=== PATIENT | female | born 1995 | race Caucasian/White ===

== ENCOUNTER → 2021-04-22 09:38 | Day surgery (SDC) | payer OTHER, MEDICAID, SELFPAY ==
[2021-04-22 10:00] VITALS: BP 113/63; PULSE 105; RESP 18; TEMP 36.6; O2SAT 98
[2021-04-22 11:12] VITALS: BP 113/63; PULSE 105; RESP 18; TEMP 36.6
== END ==
PROVIDERS: PCP Family Medicine; Visit Provider Family Medicine
DX: O26.899 Other specified pregnancy related conditions, unspecified trimester (principal); Z3A.00 Weeks of gestation of pregnancy not specified; Z67.91 Unspecified blood type, Rh negative
CPT/HCPCS: 36415; 36430; 86850; 86900; 90384; 96372

== ENCOUNTER 2021-06-25 09:01 | Inpatient (IN) | payer OTHER, MEDICAID, SELFPAY ==
[2021-06-25] VITALS (19 sets, daily range): BP systolic 102–129; BP diastolic 58–86; PULSE 72–107; RESP 16–18; TEMP 36.3–37.1; O2SAT 99–100; BMI 38.2
[2021-06-25 09:25] LABS: Basophils % 0.3 %; Eosinophils # 0.1 10^3/uL (0.0-0.8); Eosinophils % 0.5 %; Hematocrit 33.7 % (37.0-47.0); Hemoglobin 10.4 g/dL (11.5-15.3); Lymphocytes # 1.6 10^3/uL (0.8-4.8); Lymphocytes % 11.9 %; Mean Corpuscular HGB Conc 30.9 g/dL (30.0-36.0); Mean Corpuscular Hemoglobin 24.3 pg (28.0-34.0); Mean Corpuscular Volume 78.7 fl (81-99); Monocytes # 0.6 10^3/uL (0.2-0.9); Monocytes % 4.5 %; Neutrophils # 10.75 10^3/uL (1.8-7.7); Neutrophils % 82.3 %; Nucleated Red Blood Cells % 0 %; Platelet Count 275 10^3/cmm (130-400); Red Blood Count 4.28 10^6/uL (4.1-5.3); Red Cell Distribution Width 16.4 % (12.1-15.1); White Blood Count 13.1 10^3/uL (4.0-10.0)
[2021-06-25] MEDS: terbutaline 1 mg/mL INJ 0.25 MG SUBCUT (09:56)
--- NOTE | 2021-06-25 10:29 | XRR_ITS ---
PROCEDURE INFORMATION: Exam: XR Abdomen Exam date and time: 06/25/2021 10:39 AM Age: 25 years old Clinical indication: Screening exam; Post surgical status; Stat section, no count; Prior surgery; Surgery date: Post-operative (0-2 days); Patient HX: Stat csection no count. PT has suction and boggy tip on her TECHNIQUE: Imaging protocol: XR of the abdomen. Views: Frontal supine view of the abdomen. 1 View. Total images: 1 COMPARISON: No relevant prior studies available. FINDINGS: Gastrointestinal tract: Bowel gas pattern is nondistended and nonobstructive. Intraperitoneal space: Superior aspect of the abdomen has been clipped from the radiograph. Bones/joints: Unremarkable. Soft tissues: No radio-dense foreign body. Other findings: Moderate stool burden. XR/XR abdomen 1V* [id number] IMPRESSION: 1. Normal bowel gas pattern 2. Moderate stool burden. 3. Superior aspect of the abdomen has been clipped from the radiograph. 4. No radio-dense foreign body.
[2021-06-25] MEDS: sodium chloride 0.9% (100 ml) 100 ML (10:36)
[2021-06-25] MEDS: ketorolac 30 mg/mL INJ IVP ×3 (12:21→18:42)
[2021-06-25] MEDS: HYDROcodone-acetaminophen 5-325 mg Tablet PO ×2 (12:21→19:09)
--- NOTE | 2021-06-25 12:58 | PM.OPHPUD ---
Labor & Delivery H&P Update Date of Procedure: June 25, 2021 Date H&P Performed: 06/19/21 Admission Diagnosis: SROM Planned procedure: expectant management
--- NOTE | 2021-06-25 12:59 | P.OP_ITS ---
Operative Report Date of procedure: June 25, 2021 Pre-op diagnosis: NRFHT Procedure done: Emergent (crash) Primary low transverse section Surgeon: Pamela Daly MD Estimated blood loss: 600 mL Urine output: No Gentile Brief History: heart tones were in the 40s despite repositioning, so the patient was rushed back to the OR for an emergent section. Procedure: The patient was emergently wheeled in her bed to the OR and transferred to the surgical table. Betadine was splashed on her stomach, she was draped and as soon as general anesthesia was administered a Pfannenstiel skin incision was made and carried through to the underlying rectus muscles. The rectus muscles were split in the midline and the peritoneum was entered digitally. The bladder blade was placed and uterine incision was made in a transverse fashion in the lower uterine segment. Amniotic rupture of membranes was performed with the scalpel in the same swipe. The infant was delivered atraumatically with bulb suction of the mouth and nares at delivery. Amazingly the had spontaneous cry and good tone. The cord was clamped and cut and the was handed to the waiting pediatric team. Cord blood was obtained. The placenta was delivered using fundal pressure. The uterus was exteriorized from the abdomen and a dry sponge was used to clear the uterus of clots and debris. The uterus was very atonic and there was heavy bleeding from the incision site. The uterine incision was repaired using 0 chromic in a running locked fashion while simultaneously anesthesia worked on ad ministering Pitocin IV. A second layer of the same suture was used in an imbricating manner. There was good hemostasis. With the Pitocin bolus and fundal massage the uterus became firm. It was then returned to the abdomen and irrigation was used to clear the gutters of clots and debris. The uterine incision was then reinspected for hemostasis. The peritoneum was then reapproximated using 4-0 Vicryl in a running fashion. The rectus muscles were then gently reapproximated using 4-0 Vicryl in an interrupted fashion. The subfascial tissue was inspected for hemostasis and then the fascia was reapproximated using 0 Vicryl in a running fashion. The subcutaneous tissue was irrigated and then it was reapproximated using 4-0 Vicryl in a running fashion. X-ray was performed since instrument counts were not performed. The skin was then reapproximated using 4-0 Vicryl in a running fashion on a Alli needle. Steri-Strips and a pressure bandage were applied. Patient was awakened in the OR and went to recovery in good condition.
--- NOTE | 2021-06-25 12:59 | PC.NURSE ---
PT REMAINS IN OR.
--- NOTE | 2021-06-25 16:07 | PC.NURSE ---
1600 SHE GOT UP TO CHAIR AND DID VERY WELL. TOLD HER THAT WE'D LET HER SIT UP FOR 1 HOUR AND THE WE'D TAKE A WALK. TOLD HER TO CALL ME IF SHE'S NEEDS ME.
[2021-06-25] MEDS: ferrous sulfate EC 325 mg Tablet PO (18:43)
[2021-06-25] MEDS: docusate sodium 100 mg Capsule PO (18:43)
[2021-06-25] MEDS: ceFAZolin 1,000 MG in sodium chloride 0.9% (plus) 50 ML 100 MG IV (19:09)
[2021-06-25] MEDS: dextrose 5%-lactated ringers 1,000 ML 125 ML IV (19:09)
[2021-06-26] VITALS: BP 130/75; PULSE 85; RESP 16; TEMP 36.7; O2SAT 98
[2021-06-26] MEDS: ketorolac 30 mg/mL INJ IVP ×2 (00:11→05:47)
[2021-06-26] MEDS: HYDROcodone-acetaminophen 5-325 mg Tablet PO ×4 (00:33→18:59)
[2021-06-26 00:42] LABS: Hemoglobin 8.3 g/dL (11.5-15.3); Mean Corpuscular HGB Conc 30.7 g/dL (30.0-36.0); Mean Corpuscular Hemoglobin 24.5 pg (28.0-34.0); Mean Corpuscular Volume 79.6 fl (81-99); Mean Platelet Volume 9.9 fL (7.4-10.4); Platelet Count 219 10^3/cmm (130-400); Red Blood Count 3.39 10^6/uL (4.1-5.3); Red Cell Distribution Width 16.5 % (12.1-15.1); White Blood Count 19.4 10^3/uL (4.0-10.0)
[2021-06-26 04:00] VITALS: BP 113/71; PULSE 104; TEMP 37.1
[2021-06-26 07:15] VITALS: BP 120/77; PULSE 101; RESP 16; TEMP 36.8
[2021-06-26] MEDS: prenatal vitamin Capsule 1 CAP PO (07:15)
[2021-06-26] MEDS: ferrous sulfate EC 325 mg Tablet PO ×2 (07:15→19:00)
[2021-06-26] MEDS: ceFAZolin 1,000 MG in sodium chloride 0.9% (plus) 50 ML 100 MG IV ×2 (07:15→15:09)
[2021-06-26] MEDS: docusate sodium 100 mg Capsule PO ×2 (10:02→18:59)
[2021-06-26 15:10] VITALS: BP 112/75; PULSE 94; RESP 18; TEMP 36.4
[2021-06-26] MEDS: lanolin oint 7 gm 1 APPLIC TOPICAL (16:05)
--- NOTE | 2021-06-26 17:46 | P.PN_ITS ---
Subjective Subjective: The patient is postop day #1 emergency section. She is doing well. She has been ambulating in the hallways, she is passing flatus, her pain is controlled with oral medications. Vitals/I&O/Wt Last Vital Signs Temp 98.7 F 06/26/21 04:00 Pulse 104 H 06/26/21 04:00 Resp 16 06/26/21 00:00 BP 113/71 06/26/21 04:00 Pulse Ox 98 06/26/21 00:00 06/26/21 06/26/21 06/26/21 06:59 14:59 22:59 Output Total 1000 / 2300 Balance -1000 / -1250 Weight last 48 hrs Weight 94.801 kg Weight 94.801 kg Physical Exam Narrative: Up walking the halls. Alert and oriented, heart regular rate and rhythm, lungs clear to auscultation bilaterally, abdomen with appropriate postoperative tenderness, incision is clean dry and intact with Steri-Strips in place, there is trace pedal edema but no calf tenderness. Urinary Catheter Management: Gentile: Cath Placed During This Visit: yes Reason for Continuing Indwelling Catheter: Acute Urinary Retention or Obstruction Urinary Catheter Date of Insertion: 06/25/21 Urinary Catheter Time of Insertion: 11:00 Data : 06/26/21 00:05 A&P Assessment and plan (1) Status post emergency section: Postop day #1 doing well. 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
[2021-06-26 22:15] VITALS: BP 111/76; PULSE 91; TEMP 36.8; O2SAT 96
[2021-06-26] MEDS: ibuprofen 800 mg tablet PO (22:16)
[2021-06-27] MEDS: HYDROcodone-acetaminophen 5-325 mg Tablet PO ×3 (03:48→14:32)
[2021-06-27 05:00] VITALS: BP 103/61; PULSE 99; RESP 14; O2SAT 96
[2021-06-27] MEDS: docusate sodium 100 mg Capsule PO (09:09)
[2021-06-27] MEDS: ibuprofen 800 mg tablet PO ×2 (09:09→14:32)
[2021-06-27] MEDS: ferrous sulfate EC 325 mg Tablet PO (09:09)
[2021-06-27] MEDS: prenatal vitamin Capsule 1 CAP PO (09:10)
[2021-06-27 10:34] VITALS: BP 129/79; PULSE 90; RESP 18; TEMP 37.2; O2SAT 97
[2021-06-27 16:32] VITALS: BP 127/71; PULSE 86; RESP 16; TEMP 36.7; O2SAT 99
--- NOTE | 2021-06-27 18:00 | PM.DCS ---
Discharge Providers Date of Admission: 06/25/21 09:01 Date of Discharge: June 27, 2021 Attending Provider at Admission: Pamela Daly MD Attending Provider at Discharge: Pamela Daly MD Primary Care Provider: Pamela Daly MD Diagnoses at Discharge Discharge Diagnosis (1) Status post emergency section: Status: Acute Reason for Visit Reason for Visit: loss of fluid Hospital Course Hospital Course This is a 25-year-old G2 now P2 who was admitted at 38 weeks 2 days gestation with spontaneous rupture of membranes. Due to severe bradycardia she underwent a very emergent primary low transverse section. She did well after delivery. She was ambulating, tolerating a regular diet, had good pain control and had average vaginal bleeding on the day of discharge. Physical Exam Narrative: Alert and oriented, heart regular rate and rhythm, lungs clear to auscultation bilaterally, abdomen is soft with appropriate postoperative tenderness, there is 1+ pedal edema, no calf tenderness. Urinary Catheter Management: Gentile: Cath Placed During This Visit: yes, but has since been removed by the nurse Reason for Continuing Indwelling Catheter: Acute Urinary Retention or Obstruction Urinary Catheter Date of Insertion: 06/25/21 Urinary Catheter Time of Insertion: 11:00 Date Urinary Catheter Removed: 06/26/21 Time Urinary Catheter Discontinued: 07:15 Discharge Data Studies Completed and Pending Completed Studies During Hospitalization Category Date Time Status XR abdomen 1V* [id number] Stat Exams 06/25/21 10:29 Completed Radiology Impressions Abdomen X-Ray 06/25/21 10:29 IMPRESSION: 1. Normal bowel gas pattern 2. Moderate stool burden. 3. Superior aspect of the abdomen has been clipped from the radiograph. 4. No radio-dense foreign body. Laboratory Results WBC 19.4 10^3/uL (4.0-10.0) H 06/26/21 00:05 RBC 3.39 10^6/uL (4.1-5.3) L 06/26/21 00:05 Hgb 8.3 g/dL (11.5-15.3) L 06/26/21 00:05 Hct 27.0 % (37.0-47.0) L 06/26/21 00:05 MCV 79.6 fl (81-99) L 06/26/21 00:05 MCH 24.5 pg (28.0-34.0) L 06/26/21 00:05 MCHC 30.7 g/dL (30.0-36.0) 06/26/21 00:05 RDW 16.5 % (12.1-15.1) H 06/26/21 00:05 Plt Count 219 10^3/cmm (130-400) 06/26/21 00:05 MPV 9.9 fL (7.4-10.4) 06/26/21 00:05 Neut % (Auto) 82.3 % 06/25/21 08:55 Lymph % (Auto) 11.9 % 06/25/21 08:55 Sargent % (Auto) 4.5 % 06/25/21 08:55 Eos % (Auto) 0.5 % 06/25/21 08:55 Baso % (Auto) 0.3 % 06/25/21 08:55 Neut # (Auto) 10.75 10^3/uL (1.8-7.7) H 06/25/21 08:55 Lymph # (Auto) 1.6 10^3/uL (0.8-4.8) 06/25/21 08:55 Sargent # (Auto) 0.6 10^3/uL (0.2-0.9) 06/25/21 08:55 Eos # (Auto) 0.1 10^3/uL (0.0-0.8) 06/25/21 08:55 Baso # (Auto) 0.0 10^3/uL (0.0-0.1) 06/25/21 08:55 Nucleated RBC % (auto) 0 % 06/25/21 08:55 Nucleated RBCs # 0.0 /100WBC 06/25/21 08:55 Blood Type A Negative 06/25/21 08:55 Rho(D) Type Negative 06/25/21 08:55 Antibody Screen Negative 06/25/21 08:55 Screen Negative (Negative) 06/26/21 00:05 Vitals Last Vital Signs Temp 98.1 F 06/27/21 16:32 Pulse 86 06/27/21 16:32 Resp 16 06/27/21 16:32 BP 127/71 06/27/21 16:32 Pulse Ox 99 06/27/21 16:32 Discharge Plan Discharge Condition: Stable Prescriptions: New ibuprofen 800 mg Tablet 800 mg PO TID PRN (Reason: Abdominal Discomfort) Qty: 40 0RF hydrocodone-acetaminophen 5-325 mg Tablet 1 - 2 tab PO Q4H PRN (Reason: Moderate To Severe Pain) Qty: 15 0RF docusate sodium 100 mg Capsule 100 mg PO BID Qty: 60 0RF Continued omeprazole 20 mg capsule,delayed release(DR/EC) 20 mg PO DAILY 0RF Discharge Orders: Discharge Order (Routine); Ordered 06/27/21 Ordered By: Pamela Daly Referrals: Pamela Daly MD [Primary Care Provider] - 07/01/21 2:15 pm Discharge Diet: Usual diet Discharge Activity: Limit activity as instructed Patient Instructions: Depression (DC), Expression, Collection and Storage of Breast Milk (DC), Bleeding (DC), Preeclampsia and Eclampsia After Delivery (GEN), OB - Stiven/Malika, OB Discharge Report, OB Food/Drug Interaction Guide, Opioid Safety, OB Home Care, OB Proud Parent Packet, Abnormal Bleeding Discharge Attestations Time Spent in Discharge Care*: less than 30 min Quality Metrics Clinical Quality Measures [ No reported AMI, CVA or VTE this stay] Coding Level of Care Code Acute Chg FW DC note Diagnoses Status post emergency section Z98.891
[2021-06-27] MEDS: measles,mumps,rubella pf Vial (w/diluent) 0.5 ML SUBCUT ×2 (18:30→18:39)
[2021-06-27 19:35] VITALS: BP 127/71; PULSE 86; RESP 16; TEMP 36.7; O2SAT 99
== END 2021-06-27 18:45 | disposition home or self-care (01) | DRG 788 ==
LOC: OPOB 09:05 → OBGYN 09:05
PROVIDERS: Admitting Provider Family Medicine; PCP Family Medicine; Visit Provider Family Medicine
PROC: 10D00Z1 Extraction of Products of Conception, Low, Open Approach (ICD-10-PCS; CPT 59514; principal; 2021-06-25 10:00)
DX: O76 Abnormality in fetal heart rate and rhythm complicating labor and delivery (principal); Z3A.38 38 weeks gestation of pregnancy; Z37.0 Single live birth
CPT/HCPCS: 36415; 51702; 59025; 59409; 74018; 83986; 85025; 85027; 85460; 86850; 86900; 90384; 90707; 96372; 96374; 99211; J0330; J0690; J1100; J1885; J2370; J2405; J2704; J3010; J3105; J7030

== ENCOUNTER 2024-08-07 02:45 | Outpatient (CLI) | payer OTHER, MEDICAID, SELFPAY ==
[2024-08-07 02:32] VITALS: BMI 32.0
[2024-08-07 03:04] VITALS: BP 108/57; PULSE 78
[2024-08-07] MEDS: hyDROXYzine 25 mg Capsule 50 MG PO (03:37)
[2024-08-07] MEDS: HYDROcodone-acetaminophen 5-325 mg Tablet 1 TAB PO (03:37)
[2024-08-07 03:40] VITALS: BP 106/54; PULSE 80
[2024-08-07 03:43] VITALS: BP 106/54; PULSE 80
== END 2024-08-07 03:50 | disposition home or self-care (01) ==
LOC: OPOB 02:46 → OBGYN 02:47
PROVIDERS: PCP Family Medicine; Visit Provider Family Medicine
DX: O26.899 Other specified pregnancy related conditions, unspecified trimester (principal); Z3A.00 Weeks of gestation of pregnancy not specified; M54.50 Low back pain, unspecified; R53.1 Weakness; R42 Dizziness and giddiness
CPT/HCPCS: 99211; J9999

== ENCOUNTER 2024-09-16 19:26 | Inpatient (IN) | payer SELFPAY ==
[2024-09-16 19:19] VITALS: BMI 33.3
[2024-09-16 19:48] LABS: Bilirubin Urine Negative (Negative); Blood Urine 1+ (Negative); Glucose Urine UA Negative (Normal); Ketones Urine Negative (Negative); Leukocyte Esterase Urine 2+ (Negative); Nitrate Urine Negative (Negative); Protein Urine Negative (Negative); Specific Gravity, Urine 1.017 (1.005-1.030); Urine Appearance Cloudy (CLEAR); Urine Color Yellow (Yellow); pH Urine 5.5 (5-7)
[2024-09-16 19:49] VITALS: BP 124/76; PULSE 96
[2024-09-16 19:53] LABS: Bacteria Urine 4+ /hpf; Hyaline Casts Urine 7.42 /lpf; WBC Urine >100 /hpf (0-5)
[2024-09-16 20:04] VITALS: BP 108/65; PULSE 92
[2024-09-16 20:13] LABS: Add Urine Culture? Yes
[2024-09-16 20:49] VITALS: RESP 16
[2024-09-16] MEDS: oxyCODONE 5 mg IR Tab/Cap PO (20:49)
[2024-09-16] MEDS: cefTRIAXone 1,000 mg SDV 1000 MG IVP (20:50)
[2024-09-16] MEDS: lactated ringers 1,000 ML 999 ML IV (20:50)
[2024-09-16 20:59] LABS: Basophils % 0.2 %; Eosinophils % 0.4 %; Hematocrit 33.9 % (36-47); Lymphocytes # 1.4 10^3/uL (0.8-4.8); Lymphocytes % 13.6 %; Mean Corpuscular HGB Conc 33.6 g/dL (30-55); Mean Corpuscular Hemoglobin 28.9 pg (27-33); Mean Corpuscular Volume 85.8 fl (85-98); Monocytes # 0.9 10^3/uL (0.2-0.9); Neutrophils # 7.79 10^3/uL (1.8-7.7); Neutrophils % 74.4 %; Nucleated Red Blood Cells % 0 %; Platelet Count 150 10^3/cmm (157-399); Red Blood Count 3.95 10^6/uL (3.85-5.65); Red Cell Distribution Width 13.7 % (12.1-15.1); White Blood Count 10.46 10^3/uL (3.29-11.43)
[2024-09-16 21:16] LABS: Alanine Aminotransferase 18 U/L (0-33); Albumin Level 3.7 g/dL (3.5-5.2); Alkaline Phosphatase 109 U/L (35-105); Anion Gap 16.6 (5-19); Aspartate Amino Transferase 25 U/L (0-32); Blood Urea Nitrogen 17 mg/dL (6-20); Carbon Dioxide 25 mmol/L (22-29); Chloride 99 mmol/L (98-107); Creatinine Clr Calc Pharmacy 115.9625; Globulin 3.1 g/dL (1.3-4.6); Glomerular Filtration Rate 97.6 mL/min (90-130); Glucose 96 mg/dL (65-115); Osmolality Calculated 285 mOsm/kg (285-295); Potassium 3.6 mmol/L (3.5-5.1); Sodium 137 mmol/L (136-145); Total Bilirubin 0.4 mg/dL (0.15-1.2); Total Protein 6.8 g/dL (6.6-8.7)
[2024-09-16 21:29] LABS: Calcium 13.6 mg/dL (8.5-10.5)
[2024-09-16] MEDS: calcitonin,salmon 200 unit/mL SDV 2mL 300 UNIT SUBCUT (22:35)
[2024-09-16 23:03] LABS: Calcium 13.3 mg/dL (8.5-10.5)
[2024-09-17] VITALS (8 sets, daily range): BP systolic 106–139; BP diastolic 59–62; PULSE 92–93; RESP 16–20; TEMP 35.9; BMI 33.3
[2024-09-17] MEDS: oxyCODONE 5 mg IR Tab/Cap PO ×4 (02:45→23:01)
[2024-09-17] MEDS: cyclobenzaprine 10 mg Tablet 5 MG PO ×3 (02:45→18:52)
[2024-09-17 05:54] LABS: Alanine Aminotransferase 17 U/L (0-33); Albumin Level 3.3 g/dL (3.5-5.2); Alkaline Phosphatase 99 U/L (35-105); Aspartate Amino Transferase 24 U/L (0-32); Blood Urea Nitrogen 13 mg/dL (6-20); Carbon Dioxide 25 mmol/L (22-29); Chloride 100 mmol/L (98-107); Creatinine Clr Calc Pharmacy 162.3475; Globulin 2.9 g/dL (1.3-4.6); Glomerular Filtration Rate 143.9 mL/min (90-130); Glucose 108 mg/dL (65-115); Osmolality Calculated 287 mOsm/kg (285-295); Sodium 138 mmol/L (136-145); Total Bilirubin 0.3 mg/dL (0.15-1.2); Total Protein 6.2 g/dL (6.6-8.7)
--- NOTE | 2024-09-17 06:03 | MRR_ITS ---
PROCEDURE INFORMATION: Exam: MR Lumbar Spine Without Contrast Exam date and time: 09/17/2024 8:27 AM Age: 29 years old Clinical indication: Low back pain; Prior surgery; Surgery date: 6+ months; Surgery type: C section; Additional info: Hypercalcemia with low pth, severe back pain [id number], patient is 28 weeks TECHNIQUE: Imaging protocol: Magnetic resonance imaging of the lumbar spine without contrast. COMPARISON: US OB >= 14 weeks fetus [id number] 08/01/2024 9:06 AM FINDINGS: Bones/joints: There is mild wedge deformity of T12 without significant edema. Lower endplate Schmorl's nodes are noted at L2 and L5. Heterogeneous marrow signal most likely represents mixed red and white marrow. Minor spondylosis is noted at L5-S1 with small disc ridges but no significant impingement upon the tapering thecal sac and no significant neural foraminal narrowing. Spinal cord: Visualized cord, conus medullaris and cauda equina are unremarkable without compression. L1-L2: No significant disc bulge or herniation. No severe spinal canal stenosis. No significant neural foraminal narrowing. L2-L3: No significant disc bulge or herniation. No severe spinal canal stenosis. No significant neural foraminal narrowing. L3-L4: No significant disc bulge or herniation. No severe spinal canal stenosis. No significant neural foraminal narrowing. L4-L5: No significant disc bulge or herniation. No severe spinal canal stenosis. No significant neural foraminal narrowing. L5-S1: No significant disc bulge or herniation. No severe spinal canal stenosis. No significant neural foraminal narrowing. Soft tissues: There is edema noted within the paraspinal muscles from L3-L5, also representing muscle strain. There is relative fatty muscle wasting in the lower paraspinal musculature at the L5 level. Reproductive: Incidental note is made of a gravid uterus with intrauterine gestation in the vertex presentation incompletely assessed on this examination. Please correlate with obstetric ultrasound as indicated. MR/MR lumbar spine wo con* [id number] IMPRESSION: Mild edema within the posterior paraspinal musculature could represent strain. Minimal lumbosacral spondylosis but no significant canal or foraminal narrowing. Gravid uterus incidentally noted, incompletely imaged.
--- NOTE | 2024-09-17 08:40 | USR_ITS ---
PROCEDURE INFORMATION: Exam: US Retroperitoneal, Complete, Kidneys and Bladder Exam date and time: 09/17/2024 9:41 AM Age: 29 years old Clinical indication: Abdominal pain; Flank; Right; ; Additional info: Right flank pain, hematuria TECHNIQUE: Imaging protocol: Real-time ultrasound of the retroperitoneum with image documentation. Complete exam focused on the bilateral kidneys and urinary bladder. COMPARISON: US OB >= 14 weeks fetus [id number] 08/01/2024 9:06 AM FINDINGS: Right kidney: The right kidney is diminutive measuring 8.8 cm in length, somewhat echogenic without hydronephrosis. Left kidney: The left kidney measures 10.0 cm and is normal in overall contour general echotexture without hydronephrosis. Urinary bladder: Unremarkable. Gallbladder: Incidental note is made of shadowing calculi within a partially contracted gallbladder. US/US renal BI* [id number] IMPRESSION: Diminutive right renal measurement, somewhat echogenic, likely technical. Otherwise unremarkable renal ultrasound. Cholelithiasis incidentally noted.
--- NOTE | 2024-09-17 08:59 | P.HP_ITS ---
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 Patient also reports that she felt like she was getting a UTI which included burning with urination and increased urgency. The patient has been having increasing low back pain over the last month. The pain is not severe enough that she presented to the emergency department where she was given pain medications and muscle relaxers. Patient was seen by her primary care and ordered physical therapy you were done, however this has not improved her discomfort. The patient is having severe enough pain that she has difficulty ambulating and mobilizing. Patient has been taken Flexeril and it has not helped much. Patient states if she is at rest her pain is 6 out of 10 but when she moves it increases to 8 out of 10. Patient denies any injury. Present Details : 3 Para: 2 Review of Systems 2 General: Reports: 10 or more systems reviewed and unremarkable except in HPI and below Medications/Allergies Home Medications ?Medication ?Instructions ?Recorded ?Confirmed ?Last Taken ?Type acetaminophen 325 mg tablet 325 mg PO QID PRN Pain 07/2909/16/24 09/16/24 16:00 History doxylamine succinate 25 mg tablet 25 mg PO PRN PRN sle ep 08/07/24 09/16/24 08/06/24 History (Unisom (doxylamine)) famotidine 10 mg tablet 10 mg PO BID 08/07/2408/06/24 History cyclobenzaprine 5 mg tablet 5 mg PO TID 09/16/2409/1609/16/24 18:30 History Allergies Allergy/AdvReac Type Severity Reaction Status Date / Time valacyclovir Allergy Severe SWELLING Verified 09/16/24 19:38 Vitals/I&O/Wt Last Vital Signs Pulse 92 09/17/24 01:07 Resp 16 09/17/24 02:45 BP 139/62 09/17/24 01:07 Weight last 48 hrs Weight 82.554 kg Weight 82.554 kg Weight 82.554 kg Physical Exam 2 Const: GENERAL APPEARANCE: in distress Neck/C-Spine: GENERAL: Yes normal visual inspection, No lymphadenopathy and No JVD Chest: COMMONS NORMALS: normal inspection of the chest Resp: COMMON NORMALS: normal respiratory effort, No retractions and No use of accessory muscles Cardio: COMMON NORMALS: no JVD, regular rate and regular rhythm GI: COMMON NORMALS: Normal to inspection, nondistended, normoactive bowel sounds present Back/Pelvis: GENERAL BACK: Yes CVA tenderness CVA tenderness: right, Yes tenderness and Yes other (Fasciculations noted on the right lumbar area and right side of her abdomen) Extremity: COMMON NORMALS: normal to inspection and no clubbing, cyanosis or edema Neuro: COMMON NORMALS: patient oriented x3, moves all extremities, no focal motor deficits, no sensory deficits noted and deep tendon reflexes 2+ bilaterally Data 09/16/24 20:49 09/17/24 04:35 Results Labs OB ([facility]): 2 Hct, (36-47) 33.9 % L 09/16/24 Hgb, (11.27-16.99) 11.40 g/dL 09/16/24 Plt Count, (157-399) 150 10^3/cmm L 09/16/24 Micro Urine Specimen 09/16/24 A&P Assessment and plan (1) Hypercalcemia: Patient had significant elevated calcium at 13.6 on arrival. The patient was given 1 dose of calcitonin and this brought it down to 11 this morning. Patient has had only minimal improvement in her pain. The patient has been utilizing pain medication scheduled. MRI to be performed this morning. PTH was low as expected for hypercalcemia. Will check PTH related peptide. (2) Multigravida in second trimester: (3) 27 weeks gestation of : (4) Muscle spasm: Continue cyclobenzaprine (5) Low back pain: Pending MRI results PDMP PDMP Reviewed: Not Reviewed Attestations 2 Medical Necessity Statement*: Patient admitted for severe hypercalcemia and severe low back pain. Anticipate care to cross 2 midnights. Coding Level of Care Code Acute Code for Chg Fwd Diagnoses Hypercalcemia E83.52 Multigravida in second trimester Z34.82 27 weeks gestation of Z3A.27 Muscle spasm M62.838 Acute right-sided low back pain without sciatica M54.50 Chronicity: acute Back pain laterality: right Sciatica presence: without sciatica
[2024-09-17] MEDS: fentaNYL 50 mcg/mL INJ 2mL 25 MCG IVP (09:26)
[2024-09-17] MEDS: calcitonin,salmon 200 unit/mL SDV 2mL 320 UNIT SUBCUT ×2 (11:09→22:35)
[2024-09-17 17:35] LABS: Calcium 11.2 mg/dL (8.5-10.5)
--- NOTE | 2024-09-17 18:08 | USR_ITS ---
PROCEDURE INFORMATION: Exam: US Biophysical Profile Without Non-Stress Test Exam date and time: 09/17/2024 7:24 PM Age: 29 years old Clinical indication: Other: Placental location, cervical length, bpp, sam; TECHNIQUE: Imaging protocol: US biophysical profile without non-stress testing. COMPARISON: US OB >= 14 weeks fetus [id number] 08/01/2024 9:06 AM FINDINGS: heart rate: 161 bpm presentation and position: Vertex presentation. Amniotic fluid index: SAM is 13.54 cm. BIOPHYSICAL PROFILE: breathing (BPP): 2 out of 2. gross body movement (BPP): 2 out of 2. tone (BPP): 2 out of 2. Amniotic fluid (BPP): 2 out of 2. MATERNAL ANATOMY: Cervix: Cervical length measures 4.1 cm. US/US OB BPP wo NST [id number] IMPRESSION: 11/11 biophysical profile.
--- NOTE | 2024-09-17 18:08 | XRR_ITS ---
PROCEDURE INFORMATION: Exam: XR Chest Exam date and time: 09/17/2024 6:33 PM Age: 29 years old Clinical indication: Chest wall pain; Additional info: Back pain; Elevated calcium; Back spasms; PT is -proceed with cxr per Dr. Child TECHNIQUE: Imaging protocol: Radiologic exam of the chest. Views: 1 view. COMPARISON: CR XR abdomen 1V* [id number] 06/25/2021 10:39 AM FINDINGS: Lungs: Unremarkable. No consolidation. Pleural spaces: Unremarkable. No pleural effusion. No pneumothorax. Heart/Mediastinum: Unremarkable. No cardiomegaly. Bones/joints: Unremarkable. XR/XR chest 1V portable [id number] IMPRESSION: No acute findings.
[2024-09-17] MEDS: betamethasone susp 6 mg/mL 5 mL 12 MG IM (18:52)
[2024-09-17 18:53] LABS: 25 Hydroxy Vitamin D 24 ng/mL (30-100)
[2024-09-17] MEDS: sodium chloride 0.9% 1,000 ML 150 ML IV (18:53)
[2024-09-17] MEDS: lidocaine 1% 5 ML in potassium chloride premix 100 ML 26.25 ML IV (20:09)
[2024-09-17] MEDS: cefTRIAXone 1,000 mg SDV 1000 MG IVP (21:13)
[2024-09-18] MEDS: FUROsemide 10 mg/mL SDV 4mL 40 MG IVP ×3 (00:07→21:20)
--- NOTE | 2024-09-18 02:02 | PC.NURSE ---
Patient reports has helped her to the bathroom 3 times since 14. Reassurance provided that IV fluid and Lasix would increase trips to the bathroom. Encouraged patient to hit call light for additional assistance to and from bathroom.
[2024-09-18] MEDS: sodium chloride 0.9% 1,000 ML 150 ML IV ×3 (02:33→21:12)
[2024-09-18] MEDS: cyclobenzaprine 10 mg Tablet 5 MG PO ×3 (02:33→19:06)
[2024-09-18 04:48] LABS: Basophils % 0.2 %; Eosinophils % 0.1 %; Hematocrit 34.5 % (36-47); Lymphocytes # 1.2 10^3/uL (0.8-4.8); Lymphocytes % 10.3 %; Mean Corpuscular HGB Conc 33.6 g/dL (30-55); Mean Corpuscular Hemoglobin 28.9 pg (27-33); Mean Platelet Volume 9.8 fL (7.4-10.4); Monocytes # 0.4 10^3/uL (0.2-0.9); Monocytes % 3.7 %; Neutrophils # 9.81 10^3/uL (1.8-7.7); Neutrophils % 81.4 %; Nucleated Red Blood Cells % 0 %; Platelet Count 143 10^3/cmm (157-399); Red Blood Count 4.01 10^6/uL (3.85-5.65); Red Cell Distribution Width 13.5 % (12.1-15.1); White Blood Count 12.05 10^3/uL (3.29-11.43)
[2024-09-18 05:02] VITALS: BP 109/57; PULSE 82; RESP 16
[2024-09-18] MEDS: oxyCODONE 5 mg IR Tab/Cap PO ×3 (05:02→21:12)
[2024-09-18 05:10] LABS: Alanine Aminotransferase 20 U/L (0-33); Albumin Level 3.6 g/dL (3.5-5.2); Alkaline Phosphatase 116 U/L (35-105); Anion Gap 18.5 (5-19); Aspartate Amino Transferase 24 U/L (0-32); Blood Urea Nitrogen 13 mg/dL (6-20); Calcium 10.9 mg/dL (8.5-10.5); Carbon Dioxide 22 mmol/L (22-29); Chloride 99 mmol/L (98-107); Creatinine Clr Calc Pharmacy 162.3475; Glomerular Filtration Rate 143.9 mL/min (90-130); Glucose 102 mg/dL (65-115); Osmolality Calculated 282 mOsm/kg (285-295); Potassium 3.5 mmol/L (3.5-5.1); Sodium 136 mmol/L (136-145); Total Bilirubin 0.3 mg/dL (0.15-1.2); Total Protein 6.6 g/dL (6.6-8.7)
--- NOTE | 2024-09-18 09:10 | P.PN_ITS ---
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 No identifiable cause has been discovered at this time. Additional testing so far has not administrated any significant cause. Vital signs remained stable. Patient's pain has improved. Patient admits to not having a bowel movement in the last week. Labor: Amniotic Membrane Status: Intact Vitals/I&O/Wt Last Vital Signs Temp 96.6 F L 09/17/24 21:30 Pulse 82 09/18/24 05:02 Resp 16 09/18/24 05:02 BP 109/57 09/18/24 05:02 09/17/24 09/18/24 09/18/24 22:59 06:59 14:59 Intake Total 1000 / 1000 Balance 1000 / 1000 Weight last 48 hrs Weight 82.554 kg Weight 82.554 kg Weight 82.554 kg Physical Exam 2 Const: COMMON NORMALS: patient oriented x3 GENERAL APPEARANCE: in distress Neck/C-Spine: COMMON NORMALS: no JVD GENERAL: Yes normal visual inspection, No lymphadenopathy and No JVD Chest: COMMONS NORMALS: normal inspection of the chest Resp: COMMON NORMALS: normal respiratory effort, No retractions and No use of accessory muscles Cardio: COMMON NORMALS: no JVD, regular rate and regular rhythm RATE: r egular rate RHYTHM: regular rhythm GI: COMMON NORMALS: Normal to inspection, nondistended, normoactive bowel sounds present : BLADDER/KIDNEY EXAM: Yes CVA tenderness Back/Pelvis: GENERAL BACK: Yes CVA tenderness CVA tenderness: right, Yes tenderness and Yes other (Fasciculations noted on the right lumbar area and right side of her abdomen) Extremity: COMMON NORMALS: normal to inspection and no clubbing, cyanosis or edema Neuro: COMMON NORMALS: patient oriented x3, moves all extremities, no focal motor deficits, no sensory deficits noted and deep tendon reflexes 2+ bilaterally Data 09/18/24 04:35 09/18/24 04:35 A&P Assessment and plan (1) Hypercalcemia: Calcium has decreased to 10.9. Will do another dose of Lasix and continue IV fluids today. Continue calcitonin. Imaging has been unremarkable and has not determined a source of the hypercalcemia. PTH RP is pending (2) Multigravida in second trimester: No concerns with the at this time (3) 27 weeks gestation of : (4) Muscle spasm: Continue cyclobenzaprine (5) Low back pain: MRI did demonstrate significant edema in the musculature on the right side consistent with muscle strain. Patient also has possible small compression fracture of T12. Patient does admit that she has been lifting weights in the gym and recalled an incident of severe back pain when twisting quickly to help her children otherwise no trauma. Patient denies any known injury while lifting in the gym. (6) Cholelithiasis: Incidental cholelithiasis noted on ultrasound. PDMP PDMP Reviewed: Not Reviewed Attestations 2 Medical Necessity Statement*: Patient admitted for severe hypercalcemia. Coding Level of Care Code Acute Code for Chg Fwd Diagnoses Hypercalcemia E83.52 Multigravida in second trimester Z34.82 27 weeks gestation of Z3A.27 Muscle spasm M62.838 Acute right-sided low back pain without sciatica M54.50 Chronicity: acute Back pain laterality: right Sciatica presence: without sciatica Calculus of gallbladder without cholecystitis without obstruction K80.20 Cholelithiasis location: gallbladder Cholecystitis presence: without cholecystitis Biliary obstruction: without biliary obstruction
[2024-09-18] MEDS: potassium chloride ER 20 mEq Tablet 40 MEQ PO (09:21)
[2024-09-18] MEDS: polyethylene glycol 3350 Pkt 17 gm PO (09:53)
[2024-09-18] MEDS: calcitonin,salmon 200 unit/mL SDV 2mL 320 UNIT SUBCUT ×2 (10:47→23:13)
[2024-09-18 15:10] VITALS: RESP 18
[2024-09-18 17:44] VITALS: BP 105/67; PULSE 80; TEMP 35.7
[2024-09-18 17:59] VITALS: BP 104/63; PULSE 86
[2024-09-18 18:00] LABS: Calcium 11.2 mg/dL (8.5-10.5)
[2024-09-18 18:14] VITALS: BP 106/69; PULSE 83
[2024-09-18] MEDS: betamethasone susp 6 mg/mL 5 mL 12 MG IM (19:29)
[2024-09-18 21:12] VITALS: RESP 16
[2024-09-18] MEDS: cefTRIAXone 1,000 mg SDV 1000 MG IVP (21:12)
[2024-09-19 02:39] VITALS: RESP 16
[2024-09-19] MEDS: oxyCODONE 5 mg IR Tab/Cap PO ×2 (02:39→09:44)
[2024-09-19] MEDS: cyclobenzaprine 10 mg Tablet 5 MG PO (02:39)
[2024-09-19 05:24] VITALS: BP 110/64; PULSE 86
[2024-09-19] MEDS: sodium chloride 0.9% 1,000 ML 150 ML IV (05:35)
[2024-09-19 05:51] LABS: Hematocrit 33.8 % (36-47); Mean Corpuscular Volume 85.4 fl (85-98); Mean Platelet Volume 9.9 fL (7.4-10.4); Platelet Count 167 10^3/cmm (157-399); Red Blood Count 3.96 10^6/uL (3.85-5.65); Red Cell Distribution Width 13.5 % (12.1-15.1)
[2024-09-19 06:05] LABS: Alanine Aminotransferase 27 U/L (0-33); Albumin Level 3.5 g/dL (3.5-5.2); Alkaline Phosphatase 112 U/L (35-105); Anion Gap 19.3 (5-19); Aspartate Amino Transferase 28 U/L (0-32); Blood Urea Nitrogen 15 mg/dL (6-20); Calcium 10.8 mg/dL (8.5-10.5); Carbon Dioxide 22 mmol/L (22-29); Chloride 99 mmol/L (98-107); Creatinine Clr Calc Pharmacy 200.5988; Globulin 2.9 g/dL (1.3-4.6); Glomerular Filtration Rate 186.2 mL/min (90-130); Glucose 102 mg/dL (65-115); Osmolality Calculated 285 mOsm/kg (285-295); Potassium 3.3 mmol/L (3.5-5.1); Sodium 137 mmol/L (136-145); Total Bilirubin 0.3 mg/dL (0.15-1.2); Total Protein 6.4 g/dL (6.6-8.7)
[2024-09-19 06:18] LABS: Eosinophils 0 %; Monocytes Absolute 0.3 10^3/cmm (0.1-0.6); Slide Review Slide Review Perform; Total Cells Counted 100 (0-100)
[2024-09-19 06:19] LABS: Absolute Segmented Neutrophil 8.4 10/cmm (1.6-7.1); Band Neutrophils Absolute 0.9 10^3/cmm (0.0-1.2); Lymphocytes 18 %; Lymphocytes Absolute 2.7 10^3/cmm (1.2-3.4); Segmented Neutrophils 65 %
[2024-09-19 06:20] LABS: Absolute Neutrophil 9.3 10^3/cmm (1.4-6.5); Platelet Estimate Decreased (Normal)
--- NOTE | 2024-09-19 07:42 | PM.OBGYDC ---
Discharge Providers STAFF TRAINING AND DEVELOPMENT MANAGER Date of Admission: 09/16/24 19:26 Date of Discharge: 09/19/24 Attending Provider at Admission: Ayan Child MD Attending Provider at Discharge: Ayan Child MD Primary Care Provider: Pamela Daly MD Diagnoses at Discharge Discharge Diagnosis (1) Hypercalcemia: Details from hospital stay: Will continue to work this up with a 24-hour urine calcium that we will complete after discharge. PTH related protein is still pending. Status: Acute (2) Multigravida in second trimester: Status: Acute (3) 27 weeks gestation of : Status: Acute (4) Muscle spasm: Status: Acute (5) Low back pain: Details from hospital stay: Will continue with Flexeril and pain medications to help manage her pain. We will continue physical therapy. Will discuss with therapist the new findings from this visit. Status: Acute Qualifiers: Chronicity: acute Back pain laterality: right Sciatica presence: without sciatica Qualified Code(s): M54.50 - Low back pain, unspecified (6) Cholelithiasis: Status: Acute Qualifiers: Cholelithiasis location: gallbladder Cholecystitis presence: without cholecystitis Biliary obstruction: without biliary obstruction Qualified Code(s): K80.20 - Calculus of gallbladder without cholecystitis without obstruction Reason for Visit Reason for Visit: Back pain, Cramping Hospital Course Hospital Course This is a 29-year-old that presented at 27 weeks with severe mid to low back pain. Patient was noted to have fasciculations and labs were obtained. Labs initially showed a calcium level of 13.6. Renzo calcium level with PTH still showed moderately elevated calcium levels with an appropriate low PTH. Patient received started receiving calcitonin twice daily with a reduction in her calcium level and slow improvement of her symptoms. I was performed and it demonstrated a small compression fracture at T12 and evidence of muscle strain on the right. This explained in part of the reason why the patient was having significant pain. Patient was monitored over the next several days while giving calcitonin and Lasix with only minimal continued improvement in calcium. However, the patient's symptoms have significantly improved. PTH related peptide is still pending. Patient was treated for UTI and initial culture showed mixed urogenital matheus. Physical Exam Const: COMMON NORMALS: patient oriented x3 GENERAL APPEARANCE: in distress Neck/C-Spine: COMMON NORMALS: no JVD GENERAL: Yes normal visual inspection, No lymphadenopathy and No JVD Chest: COMMONS NORMALS: normal inspection of the chest Resp: COMMON NORMALS: normal respiratory effort, No retractions and No use of accessory muscles Cardio: COMMON NORMALS: no JVD, regular rate and regular rhythm RATE: regular rate RHYTHM: regular rhythm GI: COMMON NORMALS: Normal to inspection, nondistended, normoactive bowel sounds present Back/Pelvis: GENERAL BACK: Yes tenderness and Yes other Extremity: COMMON NORMALS: normal to inspection and no clubbing, cyanosis or edema Neuro: COMMON NORMALS: patient oriented x3, moves all extremities, no focal motor deficits, no sensory deficits noted and deep tendon reflexes 2+ bilaterally Discharge Data Studies Completed and Pending Completed Studies During Hospitalization Category Date Time Status XR chest 1V portable [id number] Stat Exams 09/17/24 18:08 Completed MR lumbar spine wo con* [id number] Stat MRI 09/17/24 06:03 Completed US OB BPP wo NST [id number] Stat Ultrasound 09/17/24 18:08 Completed US renal BI* [id number] Urgent Ultrasound 09/17/24 08:40 Completed Pending at discharge Category Date Time Status PTH Related Peptide (Protein) Urgent Lab 09/17/24 04:35 Received Radiology Impressions Lumbar Spine MRI 09/17/24 06:03 IMPRESSION: Mild edema within the posterior paraspinal musculature could represent strain. Minimal lumbosacral spondylosis but no significant canal or foraminal narrowing. Gravid uterus incidentally noted, incompletely imaged. ADDENDUM: 09/17/24 0925 Add to the impression section: Age-indeterminate, probably nonacute mild wedge compression deformity of T12. Renal Ultrasound 09/17/24 08:40 IMPRESSION: Diminutive right renal measurement, somewhat echogenic, likely technical. Otherwise unremarkable renal ultrasound. Cholelithiasis incidentally noted. Chest X-Ray 09/17/24 18:08 IMPRESSION: No acute findings. Obstetrics US/Biophysical Profile 09/17/24 18:08 IMPRESSION: 8/8 biophysical profile. Laboratory Results WBC 12.90 10^3/uL (3.29-11.43) H 09/19/24 05:30 RBC 3.96 10^6/uL (3.85-5.65) 09/19/24 05:30 Hgb 11.50 g/dL (11.27-16.99) 09/19/24 05:30 Hct 33.8 % (36-47) L 09/19/24 05:30 MCV 85.4 fl (85-98) 09/19/24 05:30 MCH 29.0 pg (27-33) 09/19/24 05:30 MCHC 34.0 g/dL (30-55) 09/19/24 05:30 RDW 13.5 % (12.1-15.1) 09/19/24 05:30 Plt Count 167 10^3/cmm (157-399) 09/19/24 05:30 MPV 9.9 fL (7.4-10.4) 09/19/24 05:30 Neut % (Auto) 81.4 % 09/18/24 04:35 Lymph % (Auto) Not Reportable 09/19/24 05:30 [place] % (Auto) Not Reportable 09/19/24 05:30 Eos % (Auto) 0.1 % 09/18/24 04:35 Baso % (Auto) 0.2 % 09/18/24 04:35 Neut # (Auto) 9.81 10^3/uL (1.8-7.7) H 09/18/24 04:35 Lymph # (Auto) Not Reportable 09/19/24 05:30 [place] # (Auto) Not Reportable 09/19/24 05:30 Eos # (Auto) 0.0 10^3/uL (0.0-0.8) 09/18/24 04:35 Baso # (Auto) 0.0 10^3/uL (0.0-0.1) 09/18/24 04:35 Nucleated RBC % (auto) 0 % 09/18/24 04:35 Total Counted 100 (0-100) 09/19/24 05:30 Atypical Lymphs % 3.0 % (0-5) 09/19/24 05:30 Absolute Neutrophils 9.3 10^3/cmm (1.4-6.5) H 09/19/24 05:30 Segmented Neutrophils 65 % 09/19/24 05:30 Band Neutrophils 7.0 % 09/19/24 05:30 Absolute Lymphocytes 2.7 10^3/cmm (1.2-3.4) 09/19/24 05:30 Lymphocytes (Manual) 18 % 09/19/24 05:30 Monocytes (Manual) 2.0 % 09/19/24 05:30 Absolute Monocytes 0.3 10^3/cmm (0.1-0.6) 09/19/24 05:30 Eosinophils (Manual) 0 % 09/19/24 05:30 Absolute Eosinophils 0.0 10^3/cmm (0.0-0.7) 09/19/24 05:30 Basophils (Manual) 0.0 % 09/19/24 05:30 Absolute Basophils 0.0 10^3/cmm (0.0-0.2) 09/19/24 05:30 Metamyelocytes 2.0 % 09/19/24 05:30 Myelocytes 3.0 % 09/19/24 05:30 Nucleated RBCs # 0.0 /100WBC 09/18/24 04:35 Platelet Estimate Decreased (Normal) L 09/19/24 05:30 Sodium 137 mmol/L (136-145) 09/19/24 05:30 Potassium 3.3 mmol/L (3.5-5.1) L 09/19/24 05:30 Chloride 99 mmol/L (98-107) 09/19/24 05:30 Carbon Dioxide 22 mmol/L (22-29) 09/19/24 05:30 Anion Gap 19.3 (5-19) H 09/19/24 05:30 BUN 15 mg/dL (6-20) 09/19/24 05:30 Creatinine 0.4 mg/dL (0.5-0.9) L 09/19/24 05:30 GFR Calculation 186.2 mL/min (90-130) H 09/19/24 05:30 Glucose 102 mg/dL (65-115) 09/19/24 05:30 Calculated Osmolality 285 mOsm/kg (285-295) 09/19/24 05:30 Calcium 10.8 mg/dL (8.5-10.5) H 09/19/24 05:30 Total Bilirubin 0.3 mg/dL (0.15-1.2) 09/19/24 05:30 AST 28 U/L (0-32) 09/19/24 05:30 ALT 27 U/L (0-33) 09/19/24 05:30 Alkaline Phosphatase 112 U/L (35-105) H 09/19/24 05:30 Total Protein 6.4 g/dL (6.6-8.7) L 09/19/24 05:30 Albumin 3.5 g/dL (3.5-5.2) 09/19/24 05:30 Globulin 2.9 g/dL (1.3-4.6) 09/19/24 05:30 25-OH Vitamin D Total 24 ng/mL (30-100) L 09/17/24 17:00 PTH Intact 6.0 pg/mL (15-65) L 09/16/24 22:35 Calcium (PTH Intact) 13.3 mg/dL (8.5-10.5) H 09/16/24 22:35 Urine Color Yellow (Yellow) 09/16/24 19:35 Urine Appearance Cloudy (CLEAR) A 09/16/24 19:35 Urine pH 5.5 (5-7) 09/16/24 19:35 Ur Specific [place] 1.017 (1.005-1.030) 09/16/24 19:35 Urine Protein Negative (Negative) 09/16/24 19:35 Urine Glucose (UA) Negative (Normal) 09/16/24 19:35 Urine Ketones Negative (Negative) 09/16/24 19:35 Urine Blood 1+ (Negative) A 09/16/24 19: Urine Nitrate Negative (Negative) 09/16/24 19:35 Urine Bilirubin Negative (Negative) 09/16/24 19:35 Urine Urobilinogen 1.0 mg/dL (Negative) 09/16/24 19:35 Ur Leukocyte Esterase 2+ (Negative) A 09/16/24 19:35 Urine RBC 3-5 /hpf (0-2) 09/16/24 19:35 Urine WBC >100 /hpf (0-5) H 09/16/24 19:35 Ur Squamous Epith Cells 11-20 /hpf (0-5) H 09/16/24 19:35 Amorphous Sediment Not Reportable 09/16/24 19:35 Urine Bacteria 4+ /hpf (NONE) H 09/16/24 19:35 Hyaline Casts 7.42 /lpf 09/16/24 19:35 Vitals Last Vital Signs Temp 96.3 F L 09/18/24 17:44 Pulse 86 09/19/24 05:24 Resp 16 09/19/24 02:39 BP 110/64 09/19/24 05:24 O2 Del Method Room Air 09/19/24 05:46 Results Labs OB ([facility]): Obstetrics US/Biophysical Profile 09/17/24 Hct, (36-47) 33.8 % L Today Hgb, (11.27-16.99) 11.50 g/dL Today Plt Count, (157-399) 167 10^3/cmm Today Micro Urine Specimen 09/16/24 Discharge Plan Discharge Patient Disposition: Home Condition: Stable Prescriptions: New cefdinir 300 mg capsule 300 mg PO BID 5 Days Qty: 10 0RF Continued cyclobenzaprine 5 mg Tablet 5 mg PO TID famotidine 10 mg Tablet 10 mg PO BID Unisom (doxylamine) 25 mg Tablet 25 mg PO PRN PRN (Reason: sleep) Held acetaminophen 325 mg Tablet 325 mg PO QID PRN (Reason: Pain) Hold Instructions: Resume on 09/26/24. Hold while taking oxycodone with Tylenol Discharge Orders: Discharge Order (Routine); Ordered 09/19/24 Ordered By: Ayan Child Referrals: Ayan Child MD [Physician, Family Practice] - 1-3 days Discharge Diet: Usual diet Discharge Activity: Limit activity as instructed and Return to work/school after cleared by PCP/Specialist Patient Instructions: Opioid Safety Discharge Attestations STAFF TRAINING AND DEVELOPMENT MANAGER Time Spent in Discharge Care*: greater than 30 min Coding Level of Care Code Acute Code for Chg Fwd Diagnoses Hypercalcemia E83.52 Multigravida in second trimester Z34.82 27 weeks gestation of Z3A.27 Muscle spasm M62.838 Acute right-sided low back pain without sciatica M54.50 Chronicity: acute Back pain laterality: right Sciatica presence: without sciatica Calculus of gallbladder without cholecystitis without obstruction K80.20 Cholelithiasis location: gallbladder Cholecystitis presence: without cholecystitis Biliary obstruction: without biliary obstruction
[2024-09-19 09:44] VITALS: RESP 18
[2024-09-19 11:00] VITALS: RESP 16; TEMP 36.9
[2024-09-19 11:08] VITALS: BP 118/64; PULSE 114
[2024-09-23 23:10] LABS: PTH Related Peptide (Protein) 7 pg/mL (11-20)
== END 2024-09-19 11:30 | disposition home or self-care (01) | DRG 832 ==
LOC: OBGYN 20:23 → OPOB 09-20 08:59
PROVIDERS: Admitting Provider Family Medicine; PCP Family Medicine; Visit Provider Family Medicine
DX: O99.282 Endocrine, nutritional and metabolic diseases complicating pregnancy, second trimester (principal); N39.0 Urinary tract infection, site not specified; S22.080A Wedge compression fracture of T11-T12 vertebra, initial encounter for closed fracture; O99.891 Other specified diseases and conditions complicating pregnancy; O99.612 Diseases of the digestive system complicating pregnancy, second trimester; O23.42 Unspecified infection of urinary tract in pregnancy, second trimester; X50.1XXA Overexertion from prolonged static or awkward postures, initial encounter; E83.52 Hypercalcemia; Z3A.27 27 weeks gestation of pregnancy; M62.838 Other muscle spasm; K80.20 Calculus of gallbladder without cholecystitis without obstruction
CPT/HCPCS: 36415; 59025; 71045; 72148; 76770; 76819; 80053; 81001; 82306; 82310; 82542; 83970; 85007; 85025; 87086; 96372; 96374; 96376; 99211; J0630; J0696; J0702; J1938; J3010; J3480; J7030; J7120; J9999

== ENCOUNTER 2024-09-21 07:19 | Observation (INO) | payer OTHER, MEDICAID, SELFPAY ==
[2024-09-20 06:10] VITALS: BP 128/63
[2024-09-20 06:27] VITALS: BP 129/74; PULSE 109
[2024-09-20 07:32] LABS: Basophils # 0.1 10^3/uL (0.0-0.1); Basophils % 0.4 %; Eosinophils % 0.2 %; Hematocrit 33.5 % (36-47); Lymphocytes % 14.3 %; Mean Corpuscular Hemoglobin 28.9 pg (27-33); Mean Platelet Volume 10.2 fL (7.4-10.4); Monocytes # 0.9 10^3/uL (0.2-0.9); Neutrophils # 10.17 10^3/uL (1.8-7.7); Neutrophils % 72.2 %; Nucleated Red Blood Cells % 0.2 %; Platelet Count 168 10^3/cmm (157-399); Red Blood Count 3.94 10^6/uL (3.85-5.65); Red Cell Distribution Width 13.6 % (12.1-15.1); White Blood Count 14.09 10^3/uL (3.29-11.43)
[2024-09-20 07:43] LABS: Alanine Aminotransferase 35 U/L (0-33); Albumin Level 3.6 g/dL (3.5-5.2); Alkaline Phosphatase 112 U/L (35-105); Anion Gap 16.2 (5-19); Aspartate Amino Transferase 32 U/L (0-32); Blood Urea Nitrogen 17 mg/dL (6-20); Calcium 12.1 mg/dL (8.5-10.5); Carbon Dioxide 22 mmol/L (22-29); Chloride 102 mmol/L (98-107); Globulin 2.8 g/dL (1.3-4.6); Glomerular Filtration Rate 116.6 mL/min (90-130); Glucose 92 mg/dL (65-115); Osmolality Calculated 285 mOsm/kg (285-295); Potassium 3.2 mmol/L (3.5-5.1); Sodium 137 mmol/L (136-145); Total Bilirubin 0.2 mg/dL (0.15-1.2); Total Protein 6.4 g/dL (6.6-8.7)
[2024-09-20 08:36] LABS: Calcium 11.8 mg/dL (8.5-10.5)
[2024-09-20 08:37] LABS: Magnesium 1.3 mg/dL (1.7-2.3)
[2024-09-20 08:55] LABS: Slide Review Slide Review Perform
[2024-09-20] MEDS: cyclobenzaprine 10 mg Tablet 5 MG PO ×2 (10:11→23:16)
[2024-09-20] MEDS: magnesium citrate Btl 296 mL PO ×2 (10:11→18:39)
[2024-09-20] MEDS: lidocaine 1% 5 ML in potassium chloride premix 100 ML 52.5 ML IV (10:13)
[2024-09-20] MEDS: magnesium oxide 400 mg tablet 1000 MG PO ×2 (10:35→21:25)
[2024-09-20] MEDS: sodium chloride 0.9% 1,000 ML 999 ML IV (10:36)
[2024-09-20] MEDS: diazePAM 5 mg Tablet PO ×2 (12:55→21:25)
[2024-09-20 13:13] VITALS: BP 137/68; PULSE 99
[2024-09-20 15:22] LABS: Urine Calcium Result 21.9 mg/dL
--- NOTE | 2024-09-20 15:45 | PC.NURSE ---
PATIENT UP TO BATHROOM AND HAD HER LAY DOWN IN THE BED SO THAT I COULD DO NST. HAD PATIENT DO MOST OF THE GETTING INTO BED BY HERSELF WITH LESS HELP FROM HER OR US, SHE DID WELL. THIS OIL TRANSPORT DRIVER UNABLE TO GET HEART TONES SO I SCANNED BABY AND HEART TONES DOWN JUST ABOVE PUBIC BONE, LAYIG TRANSVERSE. DR. UMANZOR WAS IN ROOM AND WITNESSED PATIENT'S ABD TWITCHING. THIS OIL TRANSPORT DRIVER HAD TO HOLD MONITOR ON FOR THE FULL 20 MINUTES TO GET NST. BABY VERY REACTIVE. ABOUT 10 MINUTES INTO NST PATIENT DO NOT MOVE NOR DID I AND THERE WAS ABOUT A 5-10 SECONDS OF ARTIFACT THAT OCCURRED AND I ASKED HER IF SHE FELT BABY MOVING AND SHE SAID 'YES IT FELT LIKE A FISH FLOPPING BUT AT THE SAME TIME SHE SAID THAT HE STOPPED AND THE SOUND STOPPED WELL. DID NOT OCCUR ANY MORE DURING TESTING. AFTER NST OBTAINED, MONITORS TAKEN OFF AND THEN THIS OIL TRANSPORT DRIVER HAD HER STRAIGHTEN HER LEGS AND I TOLD HER THAT I WAS GOING TO MOVE HER LEGS AROUND JUST SO I COULD SEE WHAT OR ANYTHING MADE HER BACK FEEL BETTER OR WORSE. SO I STARTED WITH LEFT LEG UP THEN OUT TO SIDE AND THEN WE DID RIGHT SIDE AND RIGHT SIDE WAS HALF THE DISTANCE OF LEFT BEFORE IT HURT HER. THIS OIL TRANSPORT DRIVER FELT THE LIGAMENT OF HER GROIN AND THE ONE ON THE LEFT WAS LOOSER AND MUCH SMALLER THAN RIGHT SIDE AND SHE SAID THAT IT WAS SORE. SO THIS OIL TRANSPORT DRIVER PUT PRESSURE ON THE LIGAMENT AND SHE STATED THAT IT ACTUALLY MADE HER BACK HURT LESS. THEN THIS OIL TRANSPORT DRIVER PUT THE HEEL OF MY HAND ON THIS LIGAMENT AND APPLIED CONTINUOUS PRESSURE FOR ABOUT 3-5 MINUTES FOR A TOTAL OF ABOUT 15 MINUTES AND SHE TOLD ME THAT PAIN WENT FROM 8 TO A 4.
[2024-09-20 16:18] LABS: Calcium 24 Hour Urine 854 mg/24hr (100-300); Total Volume Urine 3900 ml
[2024-09-20 17:44] LABS: 25 Hydroxy Vitamin D 26 ng/mL (30-100)
--- NOTE | 2024-09-20 17:53 | PM.OBGYHP ---
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 Patient went home from the hospital and had worsening pain and spasms despite oral medications. Patient was concerned about her calcium increasing. She denies any new injury or any increase in activity that would have caused her increase in pain. Patient did start her 24-hour urine collection. Patient denies any other symptoms today. Present Details : 3 Para: 2 Review of Systems General: Reports: 10 or more systems reviewed and unremarkable except in HPI and below Medications/Allergies Home Medications ?Medication ?Instructions ?Recorded ?Confirmed ?Last Taken ?Type acetaminophen 325 mg tablet 325 mg PO QID PRN Pain 08/07/24 09/16/24 09/16/24 16:00 History Held on 09/19/24. Instructions: Resume on 09/26/24. Hold while taking oxycodone with Tylenol doxylamine succinate 25 mg tablet 25 mg PO PRN PRN sleep 08/07/24 09/16/24 08/06/24 History (Unisom (doxylamine)) famotidine 10 mg tablet 10 mg PO BID 08/07/24 09/16/24 08/06/24 History cyclobenzaprine 5 mg tablet 5 mg PO TID 09/16/24 09/16/24 09/16/24 18:30 History cefdinir 300 mg capsule 300 mg PO BID 5 days #10 caps 09/19/24 Unknown Rx Allergies Allergy/AdvReac Type Severity Reaction Status Date / Time valacyclovir Allergy Severe SWELLING Verified 09/16/24 19:38 Vitals/I&O/Wt Last Vital Signs Pulse 99 09/20/24 13:13 BP 137/68 09/20/24 13:13 Physical Exam Const: COMMON NORMALS: patient oriented x3 GENERAL APPEARANCE: in distress Neck/C-Spine: COMMON NORMALS: no JVD GENERAL: Yes normal visual inspection, No lymphadenopathy and No JVD Chest: COMMONS NORMALS: normal inspection of the chest Resp: COMMON NORMALS: normal respiratory effort, No retractions and No use of accessory muscles Cardio: COMMON NORMALS: no JVD, regular rate and regular rhythm RATE: regular rate RHYTHM: regular rhythm GI: COMMON NORMALS: Normal to inspection, nondistended, normoactive bowel sounds present Back/Pelvis: GENERAL BACK: Yes tenderness and Yes other Extremity: COMMON NORMALS: normal to inspection and no clubbing, cyanosis or edema Neuro: COMMON NORMALS: patient oriented x3, moves all extremities, no focal motor deficits, no sensory deficits noted and deep tendon reflexes 2+ bilaterally Data 09/20/24 06:53 09/20/24 06:53 Results Labs OB ([facility]): Obstetrics US/Biophysical Profile 09/17/24 Hct, (36-47) 33.5 % L Today Hgb, (11.27-16.99) 11.40 g/dL Today Plt Count, (157-399) 168 10^3/cmm Today Micro Urine Specimen 09/16/24 A&P Assessment and plan (1) Hypercalcemia: Calcium has decreased to 10.8 prior to discharge and it was 12.1 on recheck. Not likely the cause of the patient's worsening symptoms. Urine calcium to be completed and vitamin D will be rechecked including both types. Discussed hypercalcemia with Dr. Arroyo and despite the PTH RP that is pending and vitamin D levels, she had no other recommendations at this time. (2) Multigravida in second trimester: No concerns with the at this time (3) 27 weeks gestation of : (4) Muscle spasm: Poor control with cyclobenzaprine, Valium will be started in her place. (5) Low back pain: Muscle strain and low back pain is the primary source of the patient's pain. Discussed with Dr. Zhang and he reviewed MRI and did not have any other additional recommendations that was safe in at this time. Will treat her pain with Valium and hydrocodone at this time. Encouraged the patient to ambulate and mobilize some, but avoid bending and twisting. (6) Cholelithiasis: Incidental cholelithiasis noted on ultrasound. (7) Hypokalemia: Replace potassium (8) Hypomagnesemia: Replace magnesium PDMP PDMP Reviewed: Not Reviewed Attestations Medical Necessity Statement*: Patient admitted for observation due to intractable low back pain, muscle spasm, and hypercalcemia Coding Level of Care Code Acute Code for Chg Fwd Diagnoses Hypercalcemia E83.52 Multigravida in second trimester Z34.82 27 weeks gestation of Z3A.27 Muscle spasm M62.838 Acute right-sided low back pain without sciatica M54.50 Chronicity: acute Back pain laterality: right Sciatica presence: without sciatica Calculus of gallbladder without cholecystitis without obstruction K80.20 Cholelithiasis location: gallbladder Cholecystitis presence: without cholecystitis Biliary obstruction: without biliary obstruction Hypokalemia E87.6 Hypomagnesemia E83.42
[2024-09-20] MEDS: Fleet Enema 133 mL Enema PR (18:39)
[2024-09-20] MEDS: HYDROcodone-acetaminophen 5-325 mg Tablet PO ×2 (18:44→23:16)
[2024-09-20] MEDS: sodium chloride 0.9% 1,000 ML 150 ML IV (18:53)
[2024-09-20 23:28] VITALS: BMI 32.0
[2024-09-21] MEDS: HYDROcodone-acetaminophen 5-325 mg Tablet PO ×3 (05:42→17:55)
[2024-09-21] MEDS: diazePAM 5 mg Tablet PO ×2 (05:43→14:52)
[2024-09-21 05:45] VITALS: BP 120/62; PULSE 122
[2024-09-21 05:53] LABS: Basophils # 0.1 10^3/uL (0.0-0.1); Basophils % 0.5 %; Eosinophils % 0.3 %; Hematocrit 28.8 % (36-47); Lymphocytes # 2.1 10^3/uL (0.8-4.8); Lymphocytes % 15.6 %; Mean Corpuscular HGB Conc 34.4 g/dL (30-55); Mean Corpuscular Hemoglobin 29.3 pg (27-33); Mean Corpuscular Volume 85.2 fl (85-98); Mean Platelet Volume 9.6 fL (7.4-10.4); Monocytes # 0.8 10^3/uL (0.2-0.9); Monocytes % 6.3 %; Neutrophils # 9.19 10^3/uL (1.8-7.7); Neutrophils % 68.9 %; Nucleated Red Blood Cells % 0.3 %; Platelet Count 138 10^3/cmm (157-399); Red Blood Count 3.38 10^6/uL (3.85-5.65); Red Cell Distribution Width 13.8 % (12.1-15.1); White Blood Count 13.33 10^3/uL (3.29-11.43)
[2024-09-21 06:06] VITALS: BP 109/68; PULSE 106
[2024-09-21 06:12] LABS: Alanine Aminotransferase 32 U/L (0-33); Alkaline Phosphatase 107 U/L (35-105); Anion Gap 13.3 (5-19); Aspartate Amino Transferase 31 U/L (0-32); Blood Urea Nitrogen 18 mg/dL (6-20); Calcium 12.1 mg/dL (8.5-10.5); Carbon Dioxide 27 mmol/L (22-29); Chloride 104 mmol/L (98-107); Creatinine Clr Calc Pharmacy 132.5659; Globulin 2.5 g/dL (1.3-4.6); Glomerular Filtration Rate 116.6 mL/min (90-130); Glucose 98 mg/dL (65-115); Osmolality Calculated 294 mOsm/kg (285-295); Potassium 3.3 mmol/L (3.5-5.1); Sodium 141 mmol/L (136-145); Total Bilirubin 0.2 mg/dL (0.15-1.2); Total Protein 5.5 g/dL (6.6-8.7)
[2024-09-21 06:41] LABS: Slide Review Slide Review Perform
--- NOTE | 2024-09-21 07:31 | P.PN_ITS ---
[employer] Subjective 2 Subjective: Interval history: This is a 29-year-old at 27 weeks is here for intractable low back pain and hypercalcemia. Calcium levels have remained stable. The patient has had some improvement with pain management with current medications. The patient has undergone bowel regimen without any success at this time. Patient has been up out of bed ambulating. Vital signs have remained stable. Labor: Monitor Mode: External Vitals/I&O/Wt Last Vital Signs Pulse 106 H 09/21/24 06:06 BP 109/68 09/21/24 06:06 09/20/24 09/21/24 09/21/24 22:59 06:59 14:59 Intake Total 1105 / 1105 Balance 1105 / 1105 Weight last 48 hrs Weight 79.379 kg Physical Exam 2 Const: COMMON NORMALS: patient oriented x3 GENERAL APPEARANCE: in distress Neck/C-Spine: COMMON NORMALS: no JVD GENERAL: Yes normal visual inspection, No lymphadenopathy and No JVD Chest: COMMONS NORMALS: normal inspection of the chest Resp: COMMON NORMALS: normal respiratory effort, No retractions and No use of accessory muscles Cardio: COMMON NORMALS: no JVD, regular rate and regular rhythm RATE: r egular rate RHYTHM: regular rhythm GI: COMMON NORMALS: Normal to inspection, nondistended, normoactive bowel sounds present Back/Pelvis: GENERAL BACK: Yes tenderness and Yes other Extremity: COMMON NORMALS: normal to inspection and no clubbing, cyanosis or edema Neuro: COMMON NORMALS: patient oriented x3, moves all extremities, no focal motor deficits, no sensory deficits noted and deep tendon reflexes 2+ bilaterally Data 09/21/24 05:42 09/21/24 05:42 A&P Assessment and plan (1) Hypercalcemia: Calcium is stable at 12.1. PTH RP and vitamin D2 and D3 are still pending. (2) Multigravida in second trimester: No concerns with the at this time (3) 27 weeks gestation of : (4) Muscle spasm: Better pain control without (5) Low back pain: Muscle strain and low back pain is the primary source of the patient's pain. Discussed with Dr. Zhang and he reviewed MRI and did not have any other additional recommendations that was safe in at this time. Will treat her pain with Valium and hydrocodone at this time. Encouraged the patient to ambulate and mobilize some, but avoid bending and twisting. (6) Cholelithiasis: Incidental cholelithiasis noted on ultrasound. (7) Hypokalemia: Replace potassium (8) Hypomagnesemia: Magnesium has been replaced. (9) Constipation: Patient has received 600 mL of mag citrate and a fleets enema without success. Patient will ambulate some this morning and see if she has a bowel movement and may consider doing another enema today. PDMP PDMP Reviewed: Not Reviewed Attestations 2 Medical Necessity Statement*: Patient admitted for intractable low back pain and hypercalcemia. Patient will likely discharge home today. Coding Level of Care Code Acute Code for Chg Fwd Diagnoses Hypercalcemia E83.52 Multigravida in second trimester Z34.82 27 weeks gestation of Z3A.27 Muscle spasm M62.838 Acute right-sided low back pain without sciatica M54.50 Chronicity: acute Back pain laterality: right Sciatica presence: without sciatica Calculus of gallbladder without cholecystitis without obstruction K80.20 Cholelithiasis location: gallbladder Cholecystitis presence: without cholecystitis Biliary obstruction: without biliary obstruction Hypokalemia E87.6 Hypomagnesemia E83.42 Constipation, unspecified constipation type K59.00 Constipation type: unspecified constipation type
[2024-09-21] MEDS: magnesium oxide 400 mg tablet 1000 MG PO ×2 (10:54→17:56)
[2024-09-21 11:00] VITALS: BP 121/72; PULSE 108; TEMP 36.2
[2024-09-21 11:15] VITALS: BP 127/72; PULSE 117
[2024-09-21] MEDS: cyclobenzaprine 10 mg Tablet 5 MG PO (11:52)
--- NOTE | 2024-09-21 17:55 | PM.OBGYDC ---
Discharge Providers HEALTH SCIENCES DEPARTMENT CHAIR Date of Admission: 09/21/24 07:19 Date of Discharge: 09/21/24 Attending Provider at Admission: Ayan Child MD Attending Provider at Discharge: Ayan Child MD Primary Care Provider: Pamela Daly MD Diagnoses at Discharge Discharge Diagnosis (1) Hypercalcemia: Details from hospital stay: Vitamin D and PTH RP still pending. Avoid additional sources of calcium at this time. Status: Acute (2) Multigravida in second trimester: Status: Acute (3) 27 weeks gestation of : Status: Acute (4) Muscle spasm: Details from hospital stay: Continue Valium as needed to help with muscle spasms Status: Acute (5) Low back pain: Details from hospital stay: Avoid lifting, bending, twisting. Recommend staying immobile. Will hold off on physical therapy till next week. Status: Acute Qualifiers: Chronicity: acute Back pain laterality: right Sciatica presence: without sciatica Qualified Code(s): M54.50 - Low back pain, unspecified (6) Cholelithiasis: Status: Acute Qualifiers: Cholelithiasis location: gallbladder Cholecystitis presence: without cholecystitis Biliary obstruction: without biliary obstruction Qualified Code(s): K80.20 - Calculus of gallbladder without cholecystitis without obstruction (7) Hypokalemia: Details from hospital stay: Recommend increase potassium in diet. Status: Acute (8) Hypomagnesemia: Status: Acute (9) Constipation: Details from hospital stay: Continue bowel regimen Status: Acute Qualifiers: Constipation type: unspecified constipation type Qualified Code(s): K59.00 - Constipation, unspecified Reason for Visit Reason for Visit: Muscle spasms, weakness, rigidity Hospital Course Hospital Course This is a 29-year-old G3, P2 that presents with severe spasms. Patient has had some improvement in her pain and is currently being managed with oral medications. Patient lab work was done and did not demonstrate any significant abnormalities, however some labs are still pending at this time. Patient has undergone bowel regimen without successful bowel movement. Patient feels comfortable continuing pain management with current meds and continuing bowel regimen at home. Discharge Data Studies Completed and Pending Pending at discharge Category Date Time Status Vitamin D 1,25 Dihydroxy Stat Lab 09/20/24 07:40 Stop Req Laboratory Results WBC 13.33 10^3/uL (3.29-11.43) H 09/21/24 05:42 RBC 3.38 10^6/uL (3.85-5.65) L 09/21/24 05:42 Hgb 9.90 g/dL (11.27-16.99) L 09/21/24 05:42 Hct 28.8 % (36-47) L 09/21/24 05:42 MCV 85.2 fl (85-98) 09/21/24 05:42 MCH 29.3 pg (27-33) 09/21/24 05:42 MCHC 34.4 g/dL (30-55) 09/21/24 05:42 RDW 13.8 % (12.1-15.1) 09/21/24 05:42 Plt Count 138 10^3/cmm (157-399) L 09/21/24 05:42 MPV 9.6 fL (7.4-10.4) 09/21/24 05:42 Neut % (Auto) 68.9 % 09/21/24 05:42 Lymph % (Auto) 15.6 % 09/21/24 05:42 Pope % (Auto) 6.3 % 09/21/24 05:42 Eos % (Auto) 0.3 % 09/21/24 05:42 Baso % (Auto) 0.5 % 09/21/24 05:42 Neut # (Auto) 9.19 10^3/uL (1.8-7.7) H 09/21/24 05:42 Lymph # (Auto) 2.1 10^3/uL (0.8-4.8) 09/21/24 05:42 Pope # (Auto) 0.8 10^3/uL (0.2-0.9) 09/21/24 05:42 Eos # (Auto) 0.0 10^3/uL (0.0-0.8) 09/21/24 05:42 Baso # (Auto) 0.1 10^3/uL (0.0-0.1) 09/21/24 05:42 Nucleated RBC % (auto) 0.3 % 09/21/24 05:42 Nucleated RBCs # 0.0 /100WBC 09/21/24 05:42 Sodium 141 mmol/L (136-145) 09/21/24 05:42 Potassium 3.3 mmol/L (3.5-5.1) L 09/21/24 05:42 Chloride 104 mmol/L (98-107) 09/21/24 05:42 Carbon Dioxide 27 mmol/L (22-29) 09/21/24 05:42 Anion Gap 13.3 (5-19) 09/21/24 05:42 BUN 18 mg/dL (6-20) 09/21/24 05:42 Creatinine 0.6 mg/dL (0.5-0.9) 09/21/24 05:42 GFR Calculation 116.6 mL/min (90-130) 09/21/24 05:42 Glucose 98 mg/dL (65-115) 09/21/24 05:42 Calculated Osmolality 294 mOsm/kg (285-295) 09/21/24 05:42 Calcium 12.1 mg/dL (8.5-10.5) H 09/21/24 05:42 Magnesium 1.3 mg/dL (1.7-2.3) L 09/20/24 07:40 Total Bilirubin 0.2 mg/dL (0.15-1.2) 09/21/24 05:42 AST 31 U/L (0-32) 09/21/24 05:42 ALT 32 U/L (0-33) 09/21/24 05:42 Alkaline Phosphatase 107 U/L (35-105) H 09/21/24 05:42 Total Protein 5.5 g/dL (6.6-8.7) L 09/21/24 05:42 Albumin 3.0 g/dL (3.5-5.2) L 09/21/24 05:42 Globulin 2.5 g/dL (1.3-4.6) 09/21/24 05:42 25-OH Vitamin D Total 26 ng/mL (30-100) L 09/20/24 07:40 PTH Intact 6.0 pg/mL (15-65) L 09/20/24 07:40 Calcium (PTH Intact) 11.8 mg/dL (8.5-10.5) H 09/20/24 07:40 Urine Total Volume 3900 ml 09/20/24 14:30 Ur Calcium 24 Hr 854 mg/24hr (100-300) H 09/20/24 14:30 Vitals Last Vital Signs Temp 97.2 F L 09/21/24 11:00 Pulse 117 H 09/21/24 11:15 BP 127/72 09/21/24 11:15 Results Labs OB ([facility]): Obstetrics US/Biophysical Profile 09/17/24 Hct, (36-47) 28.8 % L Today Hgb, (11.27-16.99) 9.90 g/dL L Today Plt Count, (157-399) 138 10^3/cmm L Today Micro Urine Specimen 09/16/24 Discharge Plan Discharge Patient Disposition: Home Condition: Stable Prescriptions: New hydrocodone-acetaminophen 5-325 mg Tablet 1 - 2 tab PO Q6H PRN (Reason: Moderate Pain) Qty: 30 0RF diazepam 5 mg Tablet 5 mg PO Q8H Qty: 30 0RF Continued cyclobenzaprine 5 mg Tablet 5 mg PO TID cefdinir 300 mg capsule 300 mg PO BID 5 Days Qty: 10 0RF acetaminophen 325 mg Tablet 325 mg PO QID PRN (Reason: Pain) famotidine 10 mg Tablet 10 mg PO BID Unisom (doxylamine) 25 mg Tablet 25 mg PO PRN PRN (Reason: sleep) Discharge Orders: Discharge Order (Routine); Ordered 09/21/24 Ordered By: Ayan Child Other Ambulatory Orders: DME: Hospital Bed (Order) Location: None Selected Ordered By: Ayan Child Referrals: Pamela Daly MD [Primary Care Provider, [facility]] - 4-7 days Discharge Diet: Usual diet Discharge Activity: Limit activity as instructed Discharge Attestations HEALTH SCIENCES DEPARTMENT CHAIR Time Spent in Discharge Care*: greater than 30 min Coding Level of Care Code Acute Code for Chg Fwd Diagnoses Hypercalcemia E83.52 Multigravida in second trimester Z34.82 27 weeks gestation of Z3A.27 Muscle spasm M62.838 Acute right-sided low back pain without sciatica M54.50 Chronicity: acute Back pain laterality: right Sciatica presence: without sciatica Calculus of gallbladder without cholecystitis without obstruction K80.20 Cholelithiasis location: gallbladder Cholecystitis presence: without cholecystitis Biliary obstruction: without biliary obstruction Hypokalemia E87.6 Hypomagnesemia E83.42 Constipation, unspecified constipation type K59.00 Constipation type: unspecified constipation type
--- NOTE | 2024-09-24 14:09 | PC.NURSE ---
THIS PICK UP WORKER CONTACTED DR. UMANZOR TO MAKE SURE THAT HE WAS AWARE OF HER TEST RESULT THAT HE HAD BEEN WAITING ON. HE HAD NOT SO RESULTWAS GIVEN TO HIM , I DID TELL HIM THAT SHE STILL HAS NOT HAD A BOWEL MOVEMENT FOR LIKE 10 DAYS (IT WILL BE 2 WEEKS ON THURSDAY) HE SAID TO TELL HER TO TAKE MIRALAX EVERY 6 HOURS. SO THIS PICK UP WORKER GOT AHOLD OF HER AND TOLD HER THIS. SHE STATES THAT SHE HAS APPOINTMENT WITH DR. CRORALES ON THURSDAY AT 0930.
[2024-09-24 17:20] LABS: Vit D 1,25 (Oh)2, Total 14 pg/mL (18-72); Vit D2 1,25 (Oh)2 <8 pg/mL; Vit D3 1,25 (Oh)2 14 pg/mL
== END 2024-09-21 19:49 | disposition home or self-care (01) ==
LOC: OPOB 08:21 → OBGYN 08:41
PROVIDERS: Admitting Provider Family Medicine; PCP Family Medicine; Visit Provider Family Medicine
DX: O99.282 Endocrine, nutritional and metabolic diseases complicating pregnancy, second trimester (principal); Z3A.27 27 weeks gestation of pregnancy; E83.52 Hypercalcemia; M62.838 Other muscle spasm; M54.50 Low back pain, unspecified; O26.612 Liver and biliary tract disorders in pregnancy, second trimester; K80.20 Calculus of gallbladder without cholecystitis without obstruction; E87.6 Hypokalemia; E83.42 Hypomagnesemia; O99.612 Diseases of the digestive system complicating pregnancy, second trimester; K59.00 Constipation, unspecified
CPT/HCPCS: 36415; 59025; 80053; 82306; 82310; 82340; 82652; 83735; 83970; 85025; 97165; 99211; G0378; J3480; J7030; J9999

== ENCOUNTER 2024-09-26 09:57 | Outpatient (CLI) | payer OTHER, MEDICAID, SELFPAY ==
[2024-09-26 10:29] LABS: Alanine Aminotransferase 54 U/L (0-33); Albumin Level 3.3 g/dL (3.5-5.2); Alkaline Phosphatase 144 U/L (35-105); Anion Gap 18.9 (5-19); Aspartate Amino Transferase 46 U/L (0-32); Blood Urea Nitrogen 35 mg/dL (6-20); Carbon Dioxide 25 mmol/L (22-29); Chloride 95 mmol/L (98-107); Globulin 2.9 g/dL (1.3-4.6); Glomerular Filtration Rate 35.1 mL/min (90-130); Glucose 111 mg/dL (65-115); Osmolality Calculated 289 mOsm/kg (285-295); Potassium 3.9 mmol/L (3.5-5.1); Sodium 135 mmol/L (136-145); Total Bilirubin 0.3 mg/dL (0.15-1.2); Total Protein 6.2 g/dL (6.6-8.7)
[2024-09-26 10:40] LABS: Calcium 17.7 mg/dL (8.5-10.5)
== END 2024-09-26 09:58 | disposition home or self-care (01) ==
PROVIDERS: PCP Family Medicine; Visit Provider Family Medicine
DX: E83.52 Hypercalcemia (principal)
CPT/HCPCS: 80053

== ENCOUNTER 2024-09-26 10:57 | Emergency (ER) | payer OTHER, MEDICAID, SELFPAY ==
[2024-09-26 11:05] VITALS: BP 143/85; PULSE 113; RESP 16; TEMP 36.7; O2SAT 95; BMI 32.3
[2024-09-26 11:24] LABS: Basophils # 0.1 10^3/uL (0.0-0.1); Basophils % 0.5 %; Eosinophils # 0.1 10^3/uL (0.0-0.8); Eosinophils % 0.8 %; Hematocrit 35.2 % (36-47); Lymphocytes # 1.8 10^3/uL (0.8-4.8); Lymphocytes % 13.4 %; Mean Corpuscular HGB Conc 33.5 g/dL (30-55); Mean Corpuscular Hemoglobin 28.8 pg (27-33); Mean Corpuscular Volume 85.9 fl (85-98); Mean Platelet Volume 10.1 fL (7.4-10.4); Monocytes # 0.9 10^3/uL (0.2-0.9); Monocytes % 6.4 %; Neutrophils % 74.7 %; Nucleated Red Blood Cells % 0.2 %; Platelet Count 138 10^3/cmm (157-399); Red Cell Distribution Width 13.8 % (12.1-15.1); White Blood Count 13.25 10^3/uL (3.29-11.43)
[2024-09-26] MEDS: sodium chloride 0.9% 1,000 ML 999 ML IV ×2 (11:29→12:59)
[2024-09-26 11:30] VITALS: BP 130/96; PULSE 126; RESP 16; O2SAT 94
[2024-09-26 11:41] LABS: Alanine Aminotransferase 56 U/L (0-33); Albumin Level 3.5 g/dL (3.5-5.2); Alkaline Phosphatase 152 U/L (35-105); Anion Gap 17.9 (5-19); Aspartate Amino Transferase 47 U/L (0-32); Blood Urea Nitrogen 36 mg/dL (6-20); Carbon Dioxide 26 mmol/L (22-29); Chloride 94 mmol/L (98-107); Globulin 3.1 g/dL (1.3-4.6); Glomerular Filtration Rate 37.6 mL/min (90-130); Glucose 102 mg/dL (65-115); Magnesium 2.2 mg/dL (1.7-2.3); Osmolality Calculated 287 mOsm/kg (285-295); Potassium 3.9 mmol/L (3.5-5.1); Sodium 134 mmol/L (136-145); Total Bilirubin 0.3 mg/dL (0.15-1.2); Total Protein 6.6 g/dL (6.6-8.7)
[2024-09-26 11:44] LABS: Calcium 17.7 mg/dL (8.5-10.5)
[2024-09-26 12:00] VITALS: BP 131/96; PULSE 101; O2SAT 97
[2024-09-26 12:19] LABS: Ionized Calcium 2.2 mmol/L (1.1-1.4)
--- NOTE | 2024-09-26 12:30 | PC.NURSE ---
Dr. Daly at bedside reviewing tracing. ORder to give 1L D5LR at 150 mL/hr. Also received verbal order for BPP due to non reactive NST.
--- NOTE | 2024-09-26 12:32 | US_ITS ---
WS: [id number] BIOPHYSICAL PROFILE AMNIOTIC FLUID HISTORY: non-reassuring fht Note: Fetus is less than 32 weeks gestation. COMPARISON: 09/17/2024 position: Position cannot be determined on the imaging submitted. head is not at the cervical os. Cardiac activity: 173 bpm. Cervix: closed. Placenta: Posterior, no previa or abruption. Placenta grade: Cannot be determined. Insufficient imaging of the placenta grade. Parameters are as follows: Breathin Movement: 2 Tone: 2 Fluid volume: 2 Amniotic Fluid Index: 16.8 cm. US/US OB BPP wo NST [id number] IMPRESSION: 1. Biophysical profile score: 6 /8. 2. Normal amniotic fluid.
[2024-09-26] MEDS: dextrose 5% 1,000 ML 150 ML IV (12:37)
--- NOTE | 2024-09-26 12:44 | ED_ITS ---
HPI - Recheck/Abnormal Lab/Rx 2 General: Chief Complaint: Recheck/Abnormal Lab/Rx Stated Complaint: abnormal labs, high calcium Time Seen by Provider: 09/26/24 11:08 History of Present Illness: 29-year-old female who presents to the e mergency room with hypercalcemia. 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 She was recently hospitalized with the same complaint I had stopped all of her medications to prevent any exogenous sources of calcium. Previous parathyroid and vitamin D levels did not explain her hypercalcemia. Related Data Home Medications ?Medication ?Instructions ?Recorded ?Confirmed acetaminophen 325 mg tablet 325 mg PO QID PRN Pain 07/2909/16/24 doxylamine succinate 25 mg tablet 25 mg PO PRN PRN sle ep 08/07/24 09/16/24 (Unisom (doxylamine)) famotidine 10 mg tablet 10 mg PO BID 08/07/24 cyclobenzaprine 5 mg tablet 5 mg PO TID 09/16/2409/16 Previous Rx's ?Medication ?Instructions ?Recorded diazepam 5 mg tablet 5 mg PO Q8H #30 tabs 5 hydrocodone 5 mg-acetaminophen 325 1 - 2 tab PO Q6H VA N Moderate Pain 09/21/24 mg tablet #30 tabs Allergies Allergy/AdvReac Type Severity Reaction Status Date / Time valacyclovir Allergy Severe SWELLING Verified 09/16/24 19:38 Review of Systems 2 Const: Denies: fever(s) or chills Card: Denies: chest pain Resp: Denies: dyspnea GI: Denies: abdominal pain : Denies: dysuria, urinary frequency or urinary urgency Musc: Reports: muscle cramps; Denies: neck pain or back pain Skin/Breast: Denies: rash PFSH ED 2 PFSH: Surgical History (Updated 09/26/24 @ 12:52 by Jomar Forte DO) Status post emergency section Physical Exam 2 Const: COMMON NORMALS: no acute distress GENERAL APPEARANCE: cooperative and comfortable ORIENTATION/CONSCIOUSNESS: Yes awake, Yes oriented to person, Yes oriented to place and Yes oriented to time HENMT: COMMON NORMALS: normocephalic, atraumatic and hearing grossly normal bilaterally HEAD & SCALP: normocephalic and atraumatic Resp: COMMON NORMALS: normal respiratory effort, No retractions, No use of accessory muscles and clear to auscultation bilaterally AUSCULTATION: clear to auscultation bilaterally Cardio: COMMON NORMALS: regular rate, regular rhythm and No murmurs present (Cardio) RATE: regular rate RHYTHM: regular rhythm GI: COMMON NORMALS: Soft to palpation and No hepatosplenomegaly present A USCULTATION: Yes normoactive bowel sounds PALPATION: Yes Soft to palpation, No Tenderness to palpation present (GI), No Guarding due to palpation present (GI) and Yes No hepatosplenomegaly present Extremity: COMMON NORMALS: normal to inspection, capillary refill normal, no clubbing, cyanosis or edema, no calf tenderness and no pedal edema Neuro: SENSORIUM/ORIENTATION: Yes oriented to person, Yes oriented to place and Yes oriented to time Skin: COMMON NORMALS: no rashes or lesions noted GENERAL SKIN EXAM: no rashes or lesions noted Course 2 Vital Signs: Vital signs: Vital Signs Temperature 98.0 F 09/26/24 11:05 Pulse Rate 111 H 09/26/24 13:35 Respiratory Rate 16 09/26/24 11:30 Blood Pressure 136/97 09/26/24 13:35 Pulse Oximetry 96 09/26/24 13:35 Oxygen Delivery Me thod Room Air 09/26/24 12:00 MDM - Recheck/Abnormal Lab/Rx Medical Decision Making Patient severely hypercalcemic. I conferred with Dr. Arroyo discussed with Dr. Daly extensively as well. We did she has mild AIDE. She has been given [address] Daly is in the department and did monitoring was poorly reactive patient was given dextrose bolus and reactivity has improved you are doing biophysical profile now. Dr. Daly had discussed with Dr. Live at maternal- medicine in [place] at [facility]. They have agreed to accept the patient. We have initiated treatment for hypercalcemia including IV fluids Lasix and calcitonin at 4 units/kg for a total dose of 320 units. Patient will be transferred via air ambulance to decrease transport time because of the severity of her hypercalcemia. At this time she is stable enough for transport. Medical Records I reviewed the patient's medical records. Lab Data I reviewed the patient's lab results. 09/26/24 11:15 09/26/24 11:15 Radiology Impressions Obstetrics US/Biophysical Profile 09/26/24 12:32 IMPRESSION: 1. Biophysical profile score: 6 /8. 2. Normal amniotic fluid. Laboratory Results WBC 13.25 10^3/uL (3.29-11.43) H 09/26/24 11:15 RBC 4.10 10^6/uL (3.85-5.65) 09/26/24 11:15 Hgb 11.80 g/dL (11.27-16.99) 09/26/24 11:15 Hct 35.2 % (36-47) L 09/26/24 11:15 MCV 85.9 fl (85-98) 09/26/24 11:15 MCH 28.8 pg (27-33) 09/26/24 11:15 MCHC 33.5 g/dL (30-55) 09/26/24 11:15 RDW 13.8 % (12.1-15.1) 09/26/24 11:15 Plt Count 138 10^3/cmm (157-399) L 09/26/24 11:15 MPV 10.1 fL (7.4-10.4) 09/26/24 11:15 Neut % (Auto) 74.7 % 09/26/24 11:15 Lymph % (Auto) 13.4 % 09/26/24 11:15 [place] % (Auto) 6.4 % 09/26/24 11:15 Eos % (Auto) 0.8 % 09/26/24 11:15 Baso % (Auto) 0.5 % 09/26/24 11:15 Neut # (Auto) 9.90 10^3/uL (1.8-7.7) H 09/26/24 11:15 Lymph # (Auto) 1.8 10^3/uL (0.8-4.8) 09/26/24 11:15 [place] # (Auto) 0.9 10^3/uL (0.2-0.9) 09/26/24 11:15 Eos # (Auto) 0.1 10^3/uL (0.0-0.8) 09/26/24 11:15 Baso # (Auto) 0.1 10^3/uL (0.0-0.1) 09/26/24 11:15 Nucleated RBC % (auto) 0.2 % 09/26/24 11:15 Nucleated RBCs # 0.0 /100WBC 09/26/24 11:15 Sodium 134 mmol/L (136-145) L 09/26/24 11:15 Potassium 3.9 mmol/L (3.5-5.1) 09/26/24 11:15 Chloride 94 mmol/L (98-107) L 09/26/24 11:15 Carbon Dioxide 26 mmol/L (22-29) 09/26/24 11:15 Anion Gap 17.9 (5-19) 09/26/24 11:15 BUN 36 mg/dL (6-20) H 09/26/24 11:15 Creatinine 1.6 mg/dL (0.5-0.9) H 09/26/24 11:15 GFR Calculation 37.6 mL/min (90-130) L 09/26/24 11:15 Glucose 102 mg/dL (65-115) 09/26/24 11:15 Calculated Osmolality 287 mOsm/kg (285-295) 09/26/24 11:15 Calcium 17.7 mg/dL (8.5-10.5) H* 09/26/24 11:15 Ionized Calcium Raffi 2.2 mmol/L (1.1-1.4) H* 09/26/24 12:13 Magnesium 2.2 mg/dL (1.7-2.3) 09/26/24 11:15 Total Bilirubin 0.3 mg/dL (0.15-1.2) 09/26/24 11:15 AST 47 U/L (0-32) H 09/26/24 11:15 ALT 56 U/L (0-33) H 09/26/24 11:15 Alkaline Phosphatase 152 U/L (35-105) H 09/26/24 11:15 Total Protein 6.6 g/dL (6.6-8.7) 09/26/24 11:15 Albumin 3.5 g/dL (3.5-5.2) 09/26/24 11:15 Globulin 3.1 g/dL (1.3-4.6) 09/26/24 11:15 All radiology interpretation(s) finalized by discharge Discharge Plan Discharge Patient Disposition: Xfer Short-Term Hosp Clinical Impression: Hypercalcemia, Multigravida in second trimester, Status post emergency section, AIDE (acute kidney injury) Condition: Stable Referrals: Pamela Daly MD [Primary Care Provider, Family Practice] Print Language: Anguillan Coding Level of Care Code ED Assistant City Attorney for [place]
[2024-09-26] MEDS: calcitonin,salmon 200 unit/mL SDV 2mL 320 UNIT SUBCUT (13:01)
[2024-09-26] MEDS: FUROsemide 10 mg/mL SDV 4mL 40 MG IVP (13:03)
[2024-09-26 13:35] VITALS: BP 136/97; PULSE 111; O2SAT 96
== END 2024-09-26 13:37 | disposition short-term general hospital (02) ==
PROVIDERS: Emergency Provider Family Medicine; PCP Family Medicine
DX: E83.52 Hypercalcemia (principal); O09.623 Supervision of young multigravida, third trimester; Z3A.28 28 weeks gestation of pregnancy; Z98.890 Other specified postprocedural states; N17.9 Acute kidney failure, unspecified
CPT/HCPCS: 76819; 80053; 82330; 83735; 85025; 96361; 96372; 96374; 99284; J0630; J1938; J7030; J7070

== ENCOUNTER → 2024-11-15 12:30 | Day surgery (SDC) | payer OTHER, BC, MEDICAID, SELFPAY ==
[2024-11-15 12:40] VITALS: BP 117/91; PULSE 110; RESP 16; TEMP 37.2; O2SAT 98
--- NOTE | 2024-11-15 12:46 | XRR_ITS ---
PROCEDURE INFORMATION: Exam: XR Chest Exam date and time: 11/15/2024 1:09 PM Age: 29 years old Clinical indication: Device placement; Picc; Additional info: Post picc insertion, jason placing in gi lab. Should be ready at 1315 TECHNIQUE: Imaging protocol: Radiologic exam of the chest. Views: 1 view. COMPARISON: CR XR chest 1V portable [id number] 09/17/2024 6:33 PM FINDINGS: Tubes, catheters and devices: Right PICC line is in the SVC. Lungs: Unremarkable. No consolidation. Pleural spaces: Unremarkable. No pleural effusion. No pneumothorax. Heart/Mediastinum: Unremarkable. No cardiomegaly. Bones/joints: Unremarkable. XR/XR chest 1V portable [id number] IMPRESSION: 1. No acute findings. 2. Right PICC line in the SVC
--- NOTE | 2024-11-15 13:51 | PICC.NOTE ---
Double lumen PICC placed to right basilic vein. Referred to vascular access nurse for PICC placement due to need for chemotherapy. Risks and benefits discussed and informed consent obtained from pt. Right arm assessed with right basilic vein measuring 5.2 mm, straight, and apparent best choice for placement. Using sterile technique and MST, right basilic vein accessed x 1 stick. Mid-arm circumference measured 10 cm from right AC 30 cm. Trimmed cath 40 cm with 1 cm external length noted. CXR shows tip in SVC, in good position for use per radiologist. Line secured with stat-lock. Insertion site covered with Biopatch and TSM. [facility], notified that PICC was placed and labs were drawn as ordered. Pt to CTC via wheelchair accompanied by , Sen, for first treatment.
[2024-11-15 13:56] LABS: Hematocrit 28.0 % (36-47); Hemoglobin 9.30 g/dL (11.27-16.99); Mean Corpuscular HGB Conc 33.2 g/dL (30-55); Mean Corpuscular Hemoglobin 30.1 pg (27-33); Mean Corpuscular Volume 90.6 fl (85-98); Nucleated Red Blood Cells % 1.2 %; Platelet Count 247 10^3/cmm (157-399); Red Blood Count 3.09 10^6/uL (3.85-5.65); White Blood Count 6.57 10^3/uL (3.29-11.43)
[2024-11-15 14:47] LABS: Alanine Aminotransferase 41 U/L (0-33); Albumin Level 3.8 g/dL (3.5-5.2); Alkaline Phosphatase 291 U/L (35-105); Aspartate Amino Transferase 29 U/L (0-32); Blood Urea Nitrogen 15 mg/dL (6-20); Calcium 8.6 mg/dL (8.5-10.5); Carbon Dioxide 22 mmol/L (22-29); Chloride 102 mmol/L (98-107); Creatinine Clr Calc Pharmacy 152.5410; Globulin 2.6 g/dL (1.3-4.6); Glucose 94 mg/dL (65-115); Osmolality Calculated 285 mOsm/kg (285-295); Sodium 137 mmol/L (136-145); Total Protein 6.4 g/dL (6.6-8.7)
[2024-11-15 14:49] LABS: Anion Gap 17.5 (5-19); Potassium 4.5 mmol/L (3.5-5.1)
[2024-11-15 15:15] LABS: CA 15-3 604.0 U/mL (0-25)
== END ==
LOC: GILAB 12:30
PROVIDERS: PCP Family Medicine; Visit Provider Internal Medicine Medical Oncology
DX: Z45.2 Encounter for adjustment and management of vascular access device (principal)
CPT/HCPCS: 36573; 36592; 71045; 80053; 85025; 86300

== ENCOUNTER 2024-11-15 13:43 | Oncology outpatient (recurring) (ONCR) | payer OTHER, BC, MEDICAID, SELFPAY ==
[2024-11-15 14:08] LABS: Hematocrit 29.1 % (36-47); Hemoglobin 9.50 g/dL (11.27-16.99); Mean Corpuscular HGB Conc 32.6 g/dL (30-55); Mean Corpuscular Hemoglobin 29.7 pg (27-33); Mean Corpuscular Volume 90.9 fl (85-98); Nucleated Red Blood Cells % 2.0 %; Platelet Count 260 10^3/cmm (157-399); Red Blood Count 3.20 10^6/uL (3.85-5.65); White Blood Count 6.94 10^3/uL (3.29-11.43)
[2024-11-15 14:25] VITALS: BP 124/85; PULSE 109; TEMP 36.7; O2SAT 98
[2024-11-15 14:40] LABS: Alanine Aminotransferase 41 U/L (0-33); Albumin Level 3.9 g/dL (3.5-5.2); Alkaline Phosphatase 299 U/L (35-105); Anion Gap 15.5 (5-19); Aspartate Amino Transferase 29 U/L (0-32); Blood Urea Nitrogen 14 mg/dL (6-20); Calcium 8.5 mg/dL (8.5-10.5); Carbon Dioxide 22 mmol/L (22-29); Chloride 104 mmol/L (98-107); Creatinine Clr Calc Pharmacy 152.5410; Globulin 2.7 g/dL (1.3-4.6); Glucose 91 mg/dL (65-115); Osmolality Calculated 284 mOsm/kg (285-295); Potassium 4.5 mmol/L (3.5-5.1); Sodium 137 mmol/L (136-145); Total Protein 6.6 g/dL (6.6-8.7)
[2024-11-15] MEDS: aprepitant 130 mg/18 ml SDV IVP (15:10)
[2024-11-15 15:16] LABS: CA 15-3 618.0 U/mL (0-25)
[2024-11-15] MEDS: diphenhydrAMINE 50 mg/mL SDV 1mL 25 MG IVP (15:27)
[2024-11-15] MEDS: DOXOrubicin 2 mg/ml MDV 104 MG IVP (15:54)
[2024-11-15] MEDS: cyclophosphamide 1,000 MG in sodium chloride 0.9% 500 ML 500 MG IV (16:09)
[2024-11-15] MEDS: denosumab 120 mg SDV SUBCUT (17:52)
[2024-11-15] MEDS: pegfilgrastim 6 mg/0.6 mL Kit (onpro) SUBCUT (17:56)
[2024-11-15 18:06] VITALS: BP 120/84; PULSE 112; RESP 16; TEMP 35.6; O2SAT 97
== END 2024-11-15 23:59 | disposition home or self-care (01) ==
PROVIDERS: PCP Family Medicine; Visit Provider Internal Medicine Medical Oncology
DX: Z51.11 Encounter for antineoplastic chemotherapy (principal); C50.912 Malignant neoplasm of unspecified site of left female breast; Z79.52 Long term (current) use of systemic steroids; Z79.899 Other long term (current) drug therapy; Z53.9 Procedure and treatment not carried out, unspecified reason
CPT/HCPCS: 80053; 85025; 86300; 96372; 96375; 96377; 96411; 96413; J0185; J0897; J1100; J1200; J2469; J2506; J3490; J7040; J7050; J9000; J9075; J9999

== ENCOUNTER 2024-12-01 09:02 | Oncology outpatient (recurring) (ONCR) | payer OTHER, BC, MEDICAID, SELFPAY ==
[2024-11-21 12:55] LABS: Hematocrit 27.4 % (36-47); Hemoglobin 8.80 g/dL (11.27-16.99); Mean Corpuscular HGB Conc 32.1 g/dL (30-55); Mean Corpuscular Hemoglobin 29.5 pg (27-33); Mean Corpuscular Volume 91.9 fl (85-98); Nucleated Red Blood Cells % 0 %; Platelet Count 158 10^3/cmm (157-399); Red Blood Count 2.98 10^6/uL (3.85-5.65); White Blood Count 1.11 10^3/uL (3.29-11.43)
[2024-11-21 13:13] LABS: Alanine Aminotransferase 47 U/L (0-33); Albumin Level 3.9 g/dL (3.5-5.2); Alkaline Phosphatase 254 U/L (35-105); Anion Gap 15.9 (5-19); Aspartate Amino Transferase 23 U/L (0-32); Blood Urea Nitrogen 14 mg/dL (6-20); Calcium 8.1 mg/dL (8.5-10.5); Carbon Dioxide 22 mmol/L (22-29); Chloride 103 mmol/L (98-107); Creatinine Clr Calc Pharmacy 152.0747; Globulin 2.5 g/dL (1.3-4.6); Glucose 123 mg/dL (65-115); Osmolality Calculated 286 mOsm/kg (285-295); Potassium 3.9 mmol/L (3.5-5.1); Sodium 137 mmol/L (136-145); Total Protein 6.4 g/dL (6.6-8.7)
[2024-11-21 13:17] LABS: Slide Review Slide Review Perform
[2024-11-29 09:33] LABS: Hematocrit 26.2 % (36-47); Hemoglobin 8.30 g/dL (11.27-16.99); Mean Corpuscular HGB Conc 31.7 g/dL (30-55); Mean Corpuscular Hemoglobin 29.5 pg (27-33); Mean Corpuscular Volume 93.2 fl (85-98); Platelet Count 283 10^3/cmm (157-399); Red Blood Count 2.81 10^6/uL (3.85-5.65); White Blood Count 8.96 10^3/uL (3.29-11.43)
[2024-11-29 09:46] LABS: Alanine Aminotransferase 32 U/L (0-33); Albumin Level 4.1 g/dL (3.5-5.2); Alkaline Phosphatase 201 U/L (35-105); Anion Gap 14.1 (5-19); Aspartate Amino Transferase 26 U/L (0-32); Blood Urea Nitrogen 13 mg/dL (6-20); Calcium 8.4 mg/dL (8.5-10.5); Carbon Dioxide 24 mmol/L (22-29); Chloride 107 mmol/L (98-107); Creatinine Clr Calc Pharmacy 152.0747; Globulin 2.5 g/dL (1.3-4.6); Glucose 96 mg/dL (65-115); Osmolality Calculated 292 mOsm/kg (285-295); Potassium 4.1 mmol/L (3.5-5.1); Sodium 141 mmol/L (136-145); Total Protein 6.6 g/dL (6.6-8.7)
[2024-11-29 10:08] LABS: Absolute Segmented Neutrophil 6.5 10/cmm (1.6-7.1); Atypical Lymphs 0.0 % (0-5); Band Neutrophils Absolute 0.4 10^3/cmm (0.0-1.2); Slide Review Slide Review Perform; Total Cells Counted 100 (0-100)
[2024-11-29 10:09] LABS: Macrocytosis 1+; Polychromasia 1+
[2024-11-29 11:50] LABS: Glucose Urine UA Negative (Normal); Nitrate Urine Negative (Negative); Specific Gravity, Urine 1.017 (1.005-1.030)
[2024-11-29 11:53] LABS: Add Urine Microscopic? YES
[2024-11-29] MEDS: aprepitant 130 mg/18 ml SDV IVP (12:07)
[2024-11-29] MEDS: diphenhydrAMINE 50 mg/mL SDV 1mL 25 MG IVP (12:14)
[2024-11-29] MEDS: DOXOrubicin 2 mg/ml MDV 104 MG IVP (13:10)
[2024-11-29] MEDS: cyclophosphamide 1,000 MG in sodium chloride 0.9% 500 ML 500 MG IV (13:32)
[2024-11-29] MEDS: pegfilgrastim 6 mg/0.6 mL Kit (onpro) SUBCUT (14:58)
[2024-11-29 15:03] VITALS: BP 129/95; PULSE 107
[2024-12-01] MEDS: ondansetron 2 mg/ML SDV 2 mL 8 MG IVP (09:56)
== END 2024-12-04 23:59 | disposition home or self-care (01) ==
PROVIDERS: Nurse Practitioner; PCP Family Medicine; Visit Provider Internal Medicine Medical Oncology
DX: C50.912 Malignant neoplasm of unspecified site of left female breast; Z79.52 Long term (current) use of systemic steroids; Z79.899 Other long term (current) drug therapy; Z53.9 Procedure and treatment not carried out, unspecified reason
CPT/HCPCS: 36592; 80053; 81001; 85007; 85025; 87077; 87086; 87186; 96360; 96375; 96377; 96411; 96413; J0185; J1100; J1200; J2405; J2469; J2506; J3490; J7030; J7040; J7050; J9000; J9075; J9999

== ENCOUNTER 2025-01-02 09:16 | Oncology outpatient (recurring) (ONCR) | payer OTHER, BC, MEDICAID, SELFPAY ==
[2024-12-06] VITALS (9 sets, daily range): BP systolic 99–113; BP diastolic 67–79; PULSE 16–107; RESP 16–18; TEMP 35.8–36.6; O2SAT 94–98
[2024-12-06 09:02] LABS: Hematocrit 23.9 % (36-47); Hemoglobin 7.70 g/dL (11.27-16.99); Mean Corpuscular HGB Conc 32.2 g/dL (30-55); Mean Corpuscular Hemoglobin 30.1 pg (27-33); Mean Corpuscular Volume 93.4 fl (85-98); Nucleated Red Blood Cells % 0 %; Platelet Count 156 10^3/cmm (157-399); Red Blood Count 2.56 10^6/uL (3.85-5.65)
[2024-12-06 09:38] LABS: White Blood Count 0.80 10^3/uL (3.29-11.43)
[2024-12-06 09:39] LABS: Slide Review Slide Review Perform
[2024-12-06 09:56] LABS: Alanine Aminotransferase 35 U/L (0-33); Albumin Level 4.1 g/dL (3.5-5.2); Alkaline Phosphatase 168 U/L (35-105); Anion Gap 16.0 (5-19); Aspartate Amino Transferase 17 U/L (0-32); Blood Urea Nitrogen 13 mg/dL (6-20); Calcium 8.6 mg/dL (8.5-10.5); Carbon Dioxide 21 mmol/L (22-29); Chloride 105 mmol/L (98-107); Globulin 2.4 g/dL (1.3-4.6); Glucose 98 mg/dL (65-115); Iron 170 ug/dL (37-145); Magnesium 2.0 mg/dL (1.7-2.3); Osmolality Calculated 286 mOsm/kg (285-295); Potassium 4.0 mmol/L (3.5-5.1); Sodium 138 mmol/L (136-145); Total Iron Binding Capacity 226 mcg/dl; Total Protein 6.5 g/dL (6.6-8.7); Unsaturated Iron Binding 56 ug/dL (112-347)
[2024-12-06 10:17] LABS: CA 15-3 377.7 U/mL (0-25)
[2024-12-06] MEDS: ondansetron 2 mg/ML SDV 2 mL 8 MG IVP (10:31)
[2024-12-06] MEDS: FUROsemide 10 mg/mL SDV 2mL 20 MG IVP (13:32)
[2024-12-09 11:03] LABS: Hematocrit 31.1 % (36-47); Hemoglobin 10.30 g/dL (11.27-16.99); Mean Corpuscular HGB Conc 33.1 g/dL (30-55); Mean Corpuscular Hemoglobin 30.2 pg (27-33); Mean Corpuscular Volume 91.2 fl (85-98); Nucleated Red Blood Cells % 0.4 %; Platelet Count 156 10^3/cmm (157-399); Red Blood Count 3.41 10^6/uL (3.85-5.65); White Blood Count 8.53 10^3/uL (3.29-11.43)
[2024-12-09] MEDS: ondansetron 2 mg/ML SDV 2 mL 8 MG IVP (11:05)
[2024-12-09 11:23] LABS: Alanine Aminotransferase 31 U/L (0-33); Albumin Level 4.1 g/dL (3.5-5.2); Alkaline Phosphatase 149 U/L (35-105); Anion Gap 17.0 (5-19); Aspartate Amino Transferase 19 U/L (0-32); Blood Urea Nitrogen 13 mg/dL (6-20); Calcium 8.4 mg/dL (8.5-10.5); Carbon Dioxide 20 mmol/L (22-29); Chloride 105 mmol/L (98-107); Globulin 2.3 g/dL (1.3-4.6); Glucose 113 mg/dL (65-115); Osmolality Calculated 287 mOsm/kg (285-295); Potassium 4.0 mmol/L (3.5-5.1); Sodium 138 mmol/L (136-145); Total Protein 6.4 g/dL (6.6-8.7)
[2024-12-09 12:26] VITALS: BP 126/89; PULSE 99; RESP 16; TEMP 36.4; O2SAT 97
[2024-12-13] MEDS: ondansetron 2 mg/ML SDV 2 mL 8 MG IVP (09:58)
--- NOTE | 2024-12-13 10:16 | CTR_ITS ---
PROCEDURE INFORMATION: Exam: CT Chest With Contrast; Diagnostic Exam date and time: 12/13/2024 12:26 PM Age: 29 years old Clinical indication: Prior oncological surgery - vertebroplasty October 31. Prior chemotherapy - September 30 breast cancer. Low back pain; Pain in thoracic spine; With radiculopathy; Bilateral; Prior surgery; Surgery date: 1-6 months; Surgery type: Vertebroplasty and at 38 weeks after 1 round of chemo; Kyphoplasty; Kyphoplasty; Follow up post treatment, back pain, neck pain; Breast cancer -bone mets, known compression fractures; Breast cancer with bone mets and compression fractures; Breast cancer with bone mets and known compression fractures; Additional info: Followup post treatment TECHNIQUE: Imaging protocol: Diagnostic computed tomography of the chest with contrast. Total images: 1930 Radiation optimization: All CT scans at this facility use at least one of these dose optimization techniques: automated exposure control; mA and/or kV adjustment per patient size (includes targeted exams where dose is matched to clinical indication); or iterative reconstruction. Contrast material: OMNIPAQUE 350; Contrast volume: 100 ml; Contrast route: INTRAVENOUS (IV); Other contrast: Oral, OMNIPAQUE 350, 50; COMPARISON: 1. CR XR chest 1V portable [id number] 11/15/2024 1:09 PM 2. CR XR chest 1V portable [id number] 09/17/2024 6:33 PM RADIATION DOSE METRICS: Total DLP (mGy-cm): 910.31 FINDINGS: Tubes, catheters and devices: PICC line terminates at the right atrium/SVC junction. Thyroid: The thyroid gland is normal. Trachea: Lower airway reveals no internal filling defects, secretions, or debris. Lungs: Bibasilar opacities most consistent with subsegmental atelectasis. Lungs are well-aerated without focal pathologic pulmonary parenchymal process. Pleural spaces: No significant pleural effusion. No pneumothorax. Heart: The heart is not enlarged. No pericardial fluid collection or pathologic thickening. Lymph nodes: No lymphadenopathy. Vasculature: Unremarkable. No aortic aneurysm. Bones/joints: Generalized lytic metastases throughout the axial and appendicular skeleton. Multiple healed rib fracture deformities without acute displaced unhealed rib fracture appreciated. Thoracic vertebral column multilevel compression fracture deformities most severe with greater than 50% loss of vertebral body height at the T2 vertebra, unless severe at T3, T4, T6, T8, T9, contributing to dorsal thoracic kyphosis. Thoracic multilevel vertebroplasty cement T10, T11, T12, L1, L2 associated with extensive generalized lytic skeletal metastasis and multifocal compression fracture deformities. Soft tissues: Soft tissues are normal as visualized, demonstrating no masses or induration. COMMENTS: Please see CT abdomen , and CT spine regarding additional findings. PROCEDURE INFORMATION: Exam: CT Abdomen And Pelvis With Contrast Exam date and time: 12/13/2024 12:26 PM Age: 29 years old Clinical indication: Prior oncological surgery - vertebroplasty October 31. Prior chemotherapy - September 30 breast cancer. Low back pain; Pain in thoracic spine; With radiculopathy; Bilateral; Prior surgery; Surgery date: 1-6 months; Surgery type: Vertebroplasty and at 38 weeks after 1 round of chemo; Kyphoplasty; Kyphoplasty; Follow up post treatment, back pain, neck pain; Breast cancer -bone mets, known compression fractures; Breast cancer with bone mets and compression fractures; Breast cancer with bone mets and known compression fractures; Additional info: Followup post treatment TECHNIQUE: Imaging protocol: Computed tomography of the abdomen and pelvis with contrast. Radiation optimization: All CT scans at this facility use at least one of these dose optimization techniques: automated exposure control; mA and/or kV adjustment per patient size (includes targeted exams where dose is matched to clinical indication); or iterative reconstruction. Contrast material: OMNIPAQUE 350; Contrast volume: 100 ml; Contrast route: INTRAVENOUS (IV); Other contrast: Oral, OMNIPAQUE 350, 50; COMPARISON: 1. CT lumbar spine wo con* [id number] 12/13/2024 12:[address] thoracic spin wo con* [id number] 12/13/2024 12:19 PM RADIATION DOSE METRICS: Total DLP (mGy-cm): 910.31 FINDINGS: Lungs: Please see chest CT. Diaphragm: Small hiatal hernia present. Liver: Generalized liver space-occupying masses measuring as large as 12 mm diameter compatible with metastases. Liver normal capsule contour. Gallbladder and biliary ducts: No intrahepatic biliary dilatation. Gallbladder demonstrates layering density consistent with noncalcified stones or sludge. Pancreas: Pancreas of normal thickness, contour, without pathologic pancreatic duct dilatation. Spleen: Spleen upper pole demonstrates a intermediate density 1.6 cm diameter mass or cyst which may represent a metastasis or splenic cyst. Spleen of normal-size and contour. Adrenal glands: Adrenal glands are normal. Kidneys and ureters: Kidneys are normal. No evidence of obstructing urinary tract calculus, hydroureteronephrosis or perinephric edema. Stomach and bowel: Moderate volume of stool throughout the course of the nondistended colon. No evidence of pathologic bowel distension or bowel wall thickening. Appendix: Appendix is not identified, however there are no specific manifestations of acute appendicitis. Intraperitoneal space: No significant peritoneal free fluid. No free peritoneal air. Vasculature: Distended and enhancing bilateral gonadal veins , probably , versus reflux. No major vessel hemodynamically significant stenosis, occlusion, or aneurysmal dilatation. Lymph nodes: No lymphadenopathy. Urinary bladder: No focal wall thickening of the urinary bladder. Reproductive: Uterus is normal in size and serosal contour. Bones/joints: Generalized skeletal metastases. Numerous healing rib fracture deformities characteristic of healing pathologic fractures. Vertebral column fracture deformities and prior thoracolumbar multilevel vertebroplasty. Soft tissues: Ventral abdominal wall midline umbilical-periumbilical fat-containing hernia without inflammatory manifestations. Ventral abdominal wall demonstrates evidence of prior healed surgical incision. Soft tissues are normal as visualized, demonstrating no masses or induration. COMMENTS: Please see CT chest and CT spine regarding additional findings. PROCEDURE INFORMATION: Exam: CT Cervical Spine Without Contrast Exam date and time: 12/13/2024 12:26 PM Age: 29 years old Clinical indication: Prior oncological surgery - vertebroplasty October 31. Prior chemotherapy - September 30 breast cancer. Low back pain; Pain in thoracic spine; With radiculopathy; Bilateral; Prior surgery; Surgery date: 1-6 months; Surgery type: Vertebroplasty and at 38 weeks after 1 round of chemo; Kyphoplasty; Kyphoplasty; Follow up post treatment, back pain, neck pain; Breast cancer -bone mets, known compression fractures; Breast cancer with bone mets and compression fractures; Breast cancer with bone mets and known compression fractures; Additional info: Followup post treatment TECHNIQUE: Imaging protocol: Computed tomography of the cervical spine without contrast. Radiation optimization: All CT scans at this facility use at least one of these dose optimization techniques: automated exposure control; mA and/or kV adjustment per patient size (includes targeted exams where dose is matched to clinical indication); or iterative reconstruction. Other contrast: Oral, OMNIPAQUE 350, 50; COMPARISON: 1. CR XR chest 1V portable [id number] 11/15/2024 1:09 PM 2. CR XR chest 1V portable [id number] 09/17/2024 6:33 PM RADIATION DOSE METRICS: Total DLP (mGy-cm): 139.17 FINDINGS: Bones: Generalized skeletal lytic metastases. No skull base metastases. Generalized cervical vertebral column lytic metastases involving the vertebral bodies, posterior elements, particularly of the facets. Numerous lytic rib metastases without pathologic fracture. T2 compression fracture deformity is partially included within the field of view (described in greater detail below). Spinal epidural space: No pathologic epidural mass, spinal canal hemorrhage or pathologic fluid. Mastoid air cells: Mastoid air cells and tympanic cavities appear aerated without pathologic fluid accumulation insofar as partially included within field of view. Teeth: Metallic dental amalgam fillings noted incidentally accounting for metallic beam hardening artifact, mentioned for completeness and otherwise not known to be of clinical significance. Lungs: Please see chest CT. Thyroid: The thyroid gland is normal. Soft tissues: Unremarkable. COMMENTS: Please see CT chest and , CT thoracic regarding additional findings. PROCEDURE INFORMATION: Exam: CT Thoracic Spine Without Contrast Exam date and time: 12/13/2024 12:26 PM Age: 29 years old Clinical indication: Prior oncological surgery - vertebroplasty October 31. Prior chemotherapy - September 30 breast cancer. Low back pain; Pain in thoracic spine; With radiculopathy; Bilateral; Prior surgery; Surgery date: 1-6 months; Surgery type: Vertebroplasty and at 38 weeks after 1 round of chemo; Kyphoplasty; Kyphoplasty; Follow up post treatment, back pain, neck pain; Breast cancer -bone mets, known compression fractures; Breast cancer with bone mets and compression fractures; Breast cancer with bone mets and known compression fractures; Additional info: Followup post treatment TECHNIQUE: Imaging protocol: Computed tomography of the thoracic spine without contrast. Radiation optimization: All CT scans at this facility use at least one of these dose optimization techniques: automated exposure control; mA and/or kV adjustment per patient size (includes targeted exams where dose is matched to clinical indication); or iterative reconstruction. Other contrast: Oral, OMNIPAQUE 350, 50; COMPARISON: 1. CT cervical spin wo con* [id number] 12/13/2024 12:14 PM 2. MR lumbar spine wo con* [id number] 09/17/2024 8:27 AM RADIATION DOSE METRICS: Total DLP (mGy-cm): 459.81 FINDINGS: Bones/joints: Generalized lytic metastases throughout the axial and appendicular skeleton. Multiple healed-healing pathologic rib fractures. No definite acute displaced fracture. Thoracic vertebral column multilevel compression fracture deformities most severe with greater than 50% loss of vertebral body height at the T2 vertebra, unless severe at T3, T4, T6, T8, T9, contributing to dorsal thoracic kyphosis. The T6 vertebral body in particular demonstrates discontinuity of the anterior vertebral body wall such that progressive pathologic compression fracture deformity is suspected. Thoracic multilevel vertebroplasty cement T10, T11, T12, L1, L2 associated with extensive generalized lytic skeletal metastasis and multifocal compression fracture deformities. Extensive lytic metastases involving the ribs without acutely displaced rib fracture deformities. Spinal epidural space: No pathologic epidural mass, spinal canal hemorrhage or pathologic fluid. Soft tissues: Unremarkable. Tracheobronchial tree: Lower airway, insofar as partially included within the field of view, reveals no internal filling defects, secretions or debris. Lungs: Please see chest CT. The visualized portions of the lungs appear well-aerated without focal pathologic pulmonary parenchymal process. COMMENTS: Please see CT chest, CT abdomen, and CT cervical regarding additional findings. PROCEDURE INFORMATION: Exam: CT Lumbar Spine Without Contrast Exam date and time: 12/13/2024 12:26 PM Age: 29 years old Clinical indication: Prior oncological surgery - vertebroplasty October 31. Prior chemotherapy - September 30 breast cancer. Low back pain; Pain in thoracic spine; With radiculopathy; Bilateral; Prior surgery; Surgery date: 1-6 months; Surgery type: Vertebroplasty and at 38 weeks after 1 round of chemo; Kyphoplasty; Kyphoplasty; Follow up post treatment, back pain, neck pain; Breast cancer -bone mets, known compression fractures; Breast cancer with bone mets and compression fractures; Breast cancer with bone mets and known compression fractures; Additional info: Followup post treatment TECHNIQUE: Imaging protocol: Computed tomography of the lumbar spine without contrast. Radiation optimization: All CT scans at this facility use at least one of these dose optimization techniques: automated exposure control; mA and/or kV adjustment per patient size (includes targeted exams where dose is matched to clinical indication); or iterative reconstruction. Other contrast: Oral, OMNIPAQUE 350, 50; COMPARISON: 1. MR lumbar spine wo con* [id number] 09/17/2024 8:[address] thoracic spin wo con* [id number] 12/13/2024 12:19 PM RADIATION DOSE METRICS: Total DLP (mGy-cm): 443.64 FINDINGS: Bones/joints: Generalized lytic metastases throughout the axial and appendicular skeleton. Vertebroplasty cement is noted centered within each of the lumbar vertebra, associated with chronic pathologic compression fracture deformities. Spinal epidural space: No pathologic epidural mass, acute spinal canal hemorrhage or pathologic fluid. Lungs: Please see chest CT. Soft tissues: Unremarkable. CT/CT lumbar spine wo con* [id number] IMPRESSION: 1. No evidence of acute disease of the chest. 2. Bibasilar atelectasis. 3. Generalized lytic metastases throughout the axial and appendicular skeleton. IMPRESSION: 1. No acute intra-abdominal process identified. 2. Gallbladder sludge. 3. Moderate burden of colonic stool without distension. 4. Few distal colonic diverticuli without evidence of diverticulitis. 5. Distended and enhancing bilateral gonadal veins, probably , versus reflux. Please correlate for symptoms of pelvic congestion. 6. Appendix is not identified, however there are no specific manifestations of acute appendicitis. 7. Generalized lytic metastases throughout the axial and appendicular skeleton. IMPRESSION: 1. No acute cervical vertebral column fracture in the setting of extensive blastic metastases of the vertebral column and ribs. 2. No abnormal cervical canal mass, fluid, or acquired stenosis. 3. No pathologic cervical lymphadenopathy. IMPRESSION: 1. Generalized lytic metastases throughout the axial and appendicular skeleton. 2. Multilevel thoracic pathologic vertebral compression fracture deformities of greatest severity at the T2 level contributing to upper thoracic dorsal kyphosis. 3. The T6 vertebral body in particular demonstrates discontinuity of the anterior vertebral body wall such that this level is most concerning for possible progressive, acute on chronic, pathologic compression fracture deformity. Comparison with prior spine imaging may be useful for determination of progression of disease in this regard. 4. Thoracic multilevel vertebroplasty cement T10, T11, T12, L1, L2 associated with extensive generalized lytic skeletal metastasis and multifocal chronic compression fracture deformities. IMPRESSION: 1. Lumbar vertebral column demonstrates no highly suspicious manifestations of acute or acute on chronic pathologic compression fracture deformity. Comparison with prior spine imaging may be useful for determination of progression of disease in this regard. 2. Lumbar multilevel vertebroplasty cement L1 through L5 associated with extensive generalized lytic skeletal metastases and multifocal chronic compression fracture deformities. 3. Generalized lytic metastases throughout the axial and appendicular skeleton. COMMENTS: Please see CT chest, CT abdomen and pelvis and CT lumbar regarding additional findings.
--- NOTE | 2024-12-13 10:16 | CTR_ITS ---
PROCEDURE INFORMATION: Exam: CT Chest With Contrast; Diagnostic Exam date and time: 12/13/2024 12:26 PM Age: 29 years old Clinical indication: Prior oncological surgery - vertebroplasty October 31. Prior chemotherapy - September 30 breast cancer. Low back pain; Pain in thoracic spine; With radiculopathy; Bilateral; Prior surgery; Surgery date: 1-6 months; Surgery type: Vertebroplasty and at 38 weeks after 1 round of chemo; Kyphoplasty; Kyphoplasty; Follow up post treatment, back pain, neck pain; Breast cancer -bone mets, known compression fractures; Breast cancer with bone mets and compression fractures; Breast cancer with bone mets and known compression fractures; Additional info: Followup post treatment TECHNIQUE: Imaging protocol: Diagnostic computed tomography of the chest with contrast. Total images: 1930 Radiation optimization: All CT scans at this facility use at least one of these dose optimization techniques: automated exposure control; mA and/or kV adjustment per patient size (includes targeted exams where dose is matched to clinical indication); or iterative reconstruction. Contrast material: OMNIPAQUE 350; Contrast volume: 100 ml; Contrast route: INTRAVENOUS (IV); Other contrast: Oral, OMNIPAQUE 350, 50; COMPARISON: 1. CR XR chest 1V portable [id number] 11/15/2024 1:09 PM 2. CR XR chest 1V portable [id number] 09/17/2024 6:33 PM RADIATION DOSE METRICS: Total DLP (mGy-cm): 910.31 FINDINGS: Tubes, catheters and devices: PICC line terminates at the right atrium/SVC junction. Thyroid: The thyroid gland is normal. Trachea: Lower airway reveals no internal filling defects, secretions, or debris. Lungs: Bibasilar opacities most consistent with subsegmental atelectasis. Lungs are well-aerated without focal pathologic pulmonary parenchymal process. Pleural spaces: No significant pleural effusion. No pneumothorax. Heart: The heart is not enlarged. No pericardial fluid collection or pathologic thickening. Lymph nodes: No lymphadenopathy. Vasculature: Unremarkable. No aortic aneurysm. Bones/joints: Generalized lytic metastases throughout the axial and appendicular skeleton. Multiple healed rib fracture deformities without acute displaced unhealed rib fracture appreciated. Thoracic vertebral column multilevel compression fracture deformities most severe with greater than 50% loss of vertebral body height at the T2 vertebra, unless severe at T3, T4, T6, T8, T9, contributing to dorsal thoracic kyphosis. Thoracic multilevel vertebroplasty cement T10, T11, T12, L1, L2 associated with extensive generalized lytic skeletal metastasis and multifocal compression fracture deformities. Soft tissues: Soft tissues are normal as visualized, demonstrating no masses or induration. COMMENTS: Please see CT abdomen , and CT spine regarding additional findings. PROCEDURE INFORMATION: Exam: CT Abdomen And Pelvis With Contrast Exam date and time: 12/13/2024 12:26 PM Age: 29 years old Clinical indication: Prior oncological surgery - vertebroplasty October 31. Prior chemotherapy - September 30 breast cancer. Low back pain; Pain in thoracic spine; With radiculopathy; Bilateral; Prior surgery; Surgery date: 1-6 months; Surgery type: Vertebroplasty and at 38 weeks after 1 round of chemo; Kyphoplasty; Kyphoplasty; Follow up post treatment, back pain, neck pain; Breast cancer -bone mets, known compression fractures; Breast cancer with bone mets and compression fractures; Breast cancer with bone mets and known compression fractures; Additional info: Followup post treatment TECHNIQUE: Imaging protocol: Computed tomography of the abdomen and pelvis with contrast. Radiation optimization: All CT scans at this facility use at least one of these dose optimization techniques: automated exposure control; mA and/or kV adjustment per patient size (includes targeted exams where dose is matched to clinical indication); or iterative reconstruction. Contrast material: OMNIPAQUE 350; Contrast volume: 100 ml; Contrast route: INTRAVENOUS (IV); Other contrast: Oral, OMNIPAQUE 350, 50; COMPARISON: 1. CT lumbar spine wo con* [id number] 12/13/2024 12:[address] thoracic spin wo con* [id number] 12/13/2024 12:19 PM RADIATION DOSE METRICS: Total DLP (mGy-cm): 910.31 FINDINGS: Lungs: Please see chest CT. Diaphragm: Small hiatal hernia present. Liver: Generalized liver space-occupying masses measuring as large as 12 mm diameter compatible with metastases. Liver normal capsule contour. Gallbladder and biliary ducts: No intrahepatic biliary dilatation. Gallbladder demonstrates layering density consistent with noncalcified stones or sludge. Pancreas: Pancreas of normal thickness, contour, without pathologic pancreatic duct dilatation. Spleen: Spleen upper pole demonstrates a intermediate density 1.6 cm diameter mass or cyst which may represent a metastasis or splenic cyst. Spleen of normal-size and contour. Adrenal glands: Adrenal glands are normal. Kidneys and ureters: Kidneys are normal. No evidence of obstructing urinary tract calculus, hydroureteronephrosis or perinephric edema. Stomach and bowel: Moderate volume of stool throughout the course of the nondistended colon. No evidence of pathologic bowel distension or bowel wall thickening. Appendix: Appendix is not identified, however there are no specific manifestations of acute appendicitis. Intraperitoneal space: No significant peritoneal free fluid. No free peritoneal air. Vasculature: Distended and enhancing bilateral gonadal veins , probably , versus reflux. No major vessel hemodynamically significant stenosis, occlusion, or aneurysmal dilatation. Lymph nodes: No lymphadenopathy. Urinary bladder: No focal wall thickening of the urinary bladder. Reproductive: Uterus is normal in size and serosal contour. Bones/joints: Generalized skeletal metastases. Numerous healing rib fracture deformities characteristic of healing pathologic fractures. Vertebral column fracture deformities and prior thoracolumbar multilevel vertebroplasty. Soft tissues: Ventral abdominal wall midline umbilical-periumbilical fat-containing hernia without inflammatory manifestations. Ventral abdominal wall demonstrates evidence of prior healed surgical incision. Soft tissues are normal as visualized, demonstrating no masses or induration. COMMENTS: Please see CT chest and CT spine regarding additional findings. PROCEDURE INFORMATION: Exam: CT Cervical Spine Without Contrast Exam date and time: 12/13/2024 12:26 PM Age: 29 years old Clinical indication: Prior oncological surgery - vertebroplasty October 31. Prior chemotherapy - September 30 breast cancer. Low back pain; Pain in thoracic spine; With radiculopathy; Bilateral; Prior surgery; Surgery date: 1-6 months; Surgery type: Vertebroplasty and at 38 weeks after 1 round of chemo; Kyphoplasty; Kyphoplasty; Follow up post treatment, back pain, neck pain; Breast cancer -bone mets, known compression fractures; Breast cancer with bone mets and compression fractures; Breast cancer with bone mets and known compression fractures; Additional info: Followup post treatment TECHNIQUE: Imaging protocol: Computed tomography of the cervical spine without contrast. Radiation optimization: All CT scans at this facility use at least one of these dose optimization techniques: automated exposure control; mA and/or kV adjustment per patient size (includes targeted exams where dose is matched to clinical indication); or iterative reconstruction. Other contrast: Oral, OMNIPAQUE 350, 50; COMPARISON: 1. CR XR chest 1V portable [id number] 11/15/2024 1:09 PM 2. CR XR chest 1V portable [id number] 09/17/2024 6:33 PM RADIATION DOSE METRICS: Total DLP (mGy-cm): 139.17 FINDINGS: Bones: Generalized skeletal lytic metastases. No skull base metastases. Generalized cervical vertebral column lytic metastases involving the vertebral bodies, posterior elements, particularly of the facets. Numerous lytic rib metastases without pathologic fracture. T2 compression fracture deformity is partially included within the field of view (described in greater detail below). Spinal epidural space: No pathologic epidural mass, spinal canal hemorrhage or pathologic fluid. Mastoid air cells: Mastoid air cells and tympanic cavities appear aerated without pathologic fluid accumulation insofar as partially included within field of view. Teeth: Metallic dental amalgam fillings noted incidentally accounting for metallic beam hardening artifact, mentioned for completeness and otherwise not known to be of clinical significance. Lungs: Please see chest CT. Thyroid: The thyroid gland is normal. Soft tissues: Unremarkable. COMMENTS: Please see CT chest and , CT thoracic regarding additional findings. PROCEDURE INFORMATION: Exam: CT Thoracic Spine Without Contrast Exam date and time: 12/13/2024 12:26 PM Age: 29 years old Clinical indication: Prior oncological surgery - vertebroplasty October 31. Prior chemotherapy - September 30 breast cancer. Low back pain; Pain in thoracic spine; With radiculopathy; Bilateral; Prior surgery; Surgery date: 1-6 months; Surgery type: Vertebroplasty and at 38 weeks after 1 round of chemo; Kyphoplasty; Kyphoplasty; Follow up post treatment, back pain, neck pain; Breast cancer -bone mets, known compression fractures; Breast cancer with bone mets and compression fractures; Breast cancer with bone mets and known compression fractures; Additional info: Followup post treatment TECHNIQUE: Imaging protocol: Computed tomography of the thoracic spine without contrast. Radiation optimization: All CT scans at this facility use at least one of these dose optimization techniques: automated exposure control; mA and/or kV adjustment per patient size (includes targeted exams where dose is matched to clinical indication); or iterative reconstruction. Other contrast: Oral, OMNIPAQUE 350, 50; COMPARISON: 1. CT cervical spin wo con* [id number] 12/13/2024 12:14 PM 2. MR lumbar spine wo con* [id number] 09/17/2024 8:27 AM RADIATION DOSE METRICS: Total DLP (mGy-cm): 459.81 FINDINGS: Bones/joints: Generalized lytic metastases throughout the axial and appendicular skeleton. Multiple healed-healing pathologic rib fractures. No definite acute displaced fracture. Thoracic vertebral column multilevel compression fracture deformities most severe with greater than 50% loss of vertebral body height at the T2 vertebra, unless severe at T3, T4, T6, T8, T9, contributing to dorsal thoracic kyphosis. The T6 vertebral body in particular demonstrates discontinuity of the anterior vertebral body wall such that progressive pathologic compression fracture deformity is suspected. Thoracic multilevel vertebroplasty cement T10, T11, T12, L1, L2 associated with extensive generalized lytic skeletal metastasis and multifocal compression fracture deformities. Extensive lytic metastases involving the ribs without acutely displaced rib fracture deformities. Spinal epidural space: No pathologic epidural mass, spinal canal hemorrhage or pathologic fluid. Soft tissues: Unremarkable. Tracheobronchial tree: Lower airway, insofar as partially included within the field of view, reveals no internal filling defects, secretions or debris. Lungs: Please see chest CT. The visualized portions of the lungs appear well-aerated without focal pathologic pulmonary parenchymal process. COMMENTS: Please see CT chest, CT abdomen, and CT cervical regarding additional findings. PROCEDURE INFORMATION: Exam: CT Lumbar Spine Without Contrast Exam date and time: 12/13/2024 12:26 PM Age: 29 years old Clinical indication: Prior oncological surgery - vertebroplasty October 31. Prior chemotherapy - September 30 breast cancer. Low back pain; Pain in thoracic spine; With radiculopathy; Bilateral; Prior surgery; Surgery date: 1-6 months; Surgery type: Vertebroplasty and at 38 weeks after 1 round of chemo; Kyphoplasty; Kyphoplasty; Follow up post treatment, back pain, neck pain; Breast cancer -bone mets, known compression fractures; Breast cancer with bone mets and compression fractures; Breast cancer with bone mets and known compression fractures; Additional info: Followup post treatment TECHNIQUE: Imaging protocol: Computed tomography of the lumbar spine without contrast. Radiation optimization: All CT scans at this facility use at least one of these dose optimization techniques: automated exposure control; mA and/or kV adjustment per patient size (includes targeted exams where dose is matched to clinical indication); or iterative reconstruction. Other contrast: Oral, OMNIPAQUE 350, 50; COMPARISON: 1. MR lumbar spine wo con* [id number] 09/17/2024 8:[address] thoracic spin wo con* [id number] 12/13/2024 12:19 PM RADIATION DOSE METRICS: Total DLP (mGy-cm): 443.64 FINDINGS: Bones/joints: Generalized lytic metastases throughout the axial and appendicular skeleton. Vertebroplasty cement is noted centered within each of the lumbar vertebra, associated with chronic pathologic compression fracture deformities. Spinal epidural space: No pathologic epidural mass, acute spinal canal hemorrhage or pathologic fluid. Lungs: Please see chest CT. Soft tissues: Unremarkable. CT/CT thoracic spin wo con* [id number] IMPRESSION: 1. No evidence of acute disease of the chest. 2. Bibasilar atelectasis. 3. Generalized lytic metastases throughout the axial and appendicular skeleton. IMPRESSION: 1. No acute intra-abdominal process identified. 2. Gallbladder sludge. 3. Moderate burden of colonic stool without distension. 4. Few distal colonic diverticuli without evidence of diverticulitis. 5. Distended and enhancing bilateral gonadal veins, probably , versus reflux. Please correlate for symptoms of pelvic congestion. 6. Appendix is not identified, however there are no specific manifestations of acute appendicitis. 7. Generalized lytic metastases throughout the axial and appendicular skeleton. IMPRESSION: 1. No acute cervical vertebral column fracture in the setting of extensive blastic metastases of the vertebral column and ribs. 2. No abnormal cervical canal mass, fluid, or acquired stenosis. 3. No pathologic cervical lymphadenopathy. IMPRESSION: 1. Generalized lytic metastases throughout the axial and appendicular skeleton. 2. Multilevel thoracic pathologic vertebral compression fracture deformities of greatest severity at the T2 level contributing to upper thoracic dorsal kyphosis. 3. The T6 vertebral body in particular demonstrates discontinuity of the anterior vertebral body wall such that this level is most concerning for possible progressive, acute on chronic, pathologic compression fracture deformity. Comparison with prior spine imaging may be useful for determination of progression of disease in this regard. 4. Thoracic multilevel vertebroplasty cement T10, T11, T12, L1, L2 associated with extensive generalized lytic skeletal metastasis and multifocal chronic compression fracture deformities. IMPRESSION: 1. Lumbar vertebral column demonstrates no highly suspicious manifestations of acute or acute on chronic pathologic compression fracture deformity. Comparison with prior spine imaging may be useful for determination of progression of disease in this regard. 2. Lumbar multilevel vertebroplasty cement L1 through L5 associated with extensive generalized lytic skeletal metastases and multifocal chronic compression fracture deformities. 3. Generalized lytic metastases throughout the axial and appendicular skeleton. COMMENTS: Please see CT chest, CT abdomen and pelvis and CT lumbar regarding additional findings.
--- NOTE | 2024-12-13 10:16 | CTR_ITS ---
PROCEDURE INFORMATION: Exam: CT Chest With Contrast; Diagnostic Exam date and time: 12/13/2024 12:26 PM Age: 29 years old Clinical indication: Prior oncological surgery - vertebroplasty October 31. Prior chemotherapy - September 30 breast cancer. Low back pain; Pain in thoracic spine; With radiculopathy; Bilateral; Prior surgery; Surgery date: 1-6 months; Surgery type: Vertebroplasty and at 38 weeks after 1 round of chemo; Kyphoplasty; Kyphoplasty; Follow up post treatment, back pain, neck pain; Breast cancer -bone mets, known compression fractures; Breast cancer with bone mets and compression fractures; Breast cancer with bone mets and known compression fractures; Additional info: Followup post treatment TECHNIQUE: Imaging protocol: Diagnostic computed tomography of the chest with contrast. Total images: 1930 Radiation optimization: All CT scans at this facility use at least one of these dose optimization techniques: automated exposure control; mA and/or kV adjustment per patient size (includes targeted exams where dose is matched to clinical indication); or iterative reconstruction. Contrast material: OMNIPAQUE 350; Contrast volume: 100 ml; Contrast route: INTRAVENOUS (IV); Other contrast: Oral, OMNIPAQUE 350, 50; COMPARISON: 1. CR XR chest 1V portable [id number] 11/15/2024 1:09 PM 2. CR XR chest 1V portable [id number] 09/17/2024 6:33 PM RADIATION DOSE METRICS: Total DLP (mGy-cm): 910.31 FINDINGS: Tubes, catheters and devices: PICC line terminates at the right atrium/SVC junction. Thyroid: The thyroid gland is normal. Trachea: Lower airway reveals no internal filling defects, secretions, or debris. Lungs: Bibasilar opacities most consistent with subsegmental atelectasis. Lungs are well-aerated without focal pathologic pulmonary parenchymal process. Pleural spaces: No significant pleural effusion. No pneumothorax. Heart: The heart is not enlarged. No pericardial fluid collection or pathologic thickening. Lymph nodes: No lymphadenopathy. Vasculature: Unremarkable. No aortic aneurysm. Bones/joints: Generalized lytic metastases throughout the axial and appendicular skeleton. Multiple healed rib fracture deformities without acute displaced unhealed rib fracture appreciated. Thoracic vertebral column multilevel compression fracture deformities most severe with greater than 50% loss of vertebral body height at the T2 vertebra, unless severe at T3, T4, T6, T8, T9, contributing to dorsal thoracic kyphosis. Thoracic multilevel vertebroplasty cement T10, T11, T12, L1, L2 associated with extensive generalized lytic skeletal metastasis and multifocal compression fracture deformities. Soft tissues: Soft tissues are normal as visualized, demonstrating no masses or induration. COMMENTS: Please see CT abdomen , and CT spine regarding additional findings. PROCEDURE INFORMATION: Exam: CT Abdomen And Pelvis With Contrast Exam date and time: 12/13/2024 12:26 PM Age: 29 years old Clinical indication: Prior oncological surgery - vertebroplasty October 31. Prior chemotherapy - September 30 breast cancer. Low back pain; Pain in thoracic spine; With radiculopathy; Bilateral; Prior surgery; Surgery date: 1-6 months; Surgery type: Vertebroplasty and at 38 weeks after 1 round of chemo; Kyphoplasty; Kyphoplasty; Follow up post treatment, back pain, neck pain; Breast cancer -bone mets, known compression fractures; Breast cancer with bone mets and compression fractures; Breast cancer with bone mets and known compression fractures; Additional info: Followup post treatment TECHNIQUE: Imaging protocol: Computed tomography of the abdomen and pelvis with contrast. Radiation optimization: All CT scans at this facility use at least one of these dose optimization techniques: automated exposure control; mA and/or kV adjustment per patient size (includes targeted exams where dose is matched to clinical indication); or iterative reconstruction. Contrast material: OMNIPAQUE 350; Contrast volume: 100 ml; Contrast route: INTRAVENOUS (IV); Other contrast: Oral, OMNIPAQUE 350, 50; COMPARISON: 1. CT lumbar spine wo con* [id number] 12/13/2024 12:[address] thoracic spin wo con* [id number] 12/13/2024 12:19 PM RADIATION DOSE METRICS: Total DLP (mGy-cm): 910.31 FINDINGS: Lungs: Please see chest CT. Diaphragm: Small hiatal hernia present. Liver: Generalized liver space-occupying masses measuring as large as 12 mm diameter compatible with metastases. Liver normal capsule contour. Gallbladder and biliary ducts: No intrahepatic biliary dilatation. Gallbladder demonstrates layering density consistent with noncalcified stones or sludge. Pancreas: Pancreas of normal thickness, contour, without pathologic pancreatic duct dilatation. Spleen: Spleen upper pole demonstrates a intermediate density 1.6 cm diameter mass or cyst which may represent a metastasis or splenic cyst. Spleen of normal-size and contour. Adrenal glands: Adrenal glands are normal. Kidneys and ureters: Kidneys are normal. No evidence of obstructing urinary tract calculus, hydroureteronephrosis or perinephric edema. Stomach and bowel: Moderate volume of stool throughout the course of the nondistended colon. No evidence of pathologic bowel distension or bowel wall thickening. Appendix: Appendix is not identified, however there are no specific manifestations of acute appendicitis. Intraperitoneal space: No significant peritoneal free fluid. No free peritoneal air. Vasculature: Distended and enhancing bilateral gonadal veins , probably , versus reflux. No major vessel hemodynamically significant stenosis, occlusion, or aneurysmal dilatation. Lymph nodes: No lymphadenopathy. Urinary bladder: No focal wall thickening of the urinary bladder. Reproductive: Uterus is normal in size and serosal contour. Bones/joints: Generalized skeletal metastases. Numerous healing rib fracture deformities characteristic of healing pathologic fractures. Vertebral column fracture deformities and prior thoracolumbar multilevel vertebroplasty. Soft tissues: Ventral abdominal wall midline umbilical-periumbilical fat-containing hernia without inflammatory manifestations. Ventral abdominal wall demonstrates evidence of prior healed surgical incision. Soft tissues are normal as visualized, demonstrating no masses or induration. COMMENTS: Please see CT chest and CT spine regarding additional findings. PROCEDURE INFORMATION: Exam: CT Cervical Spine Without Contrast Exam date and time: 12/13/2024 12:26 PM Age: 29 years old Clinical indication: Prior oncological surgery - vertebroplasty October 31. Prior chemotherapy - September 30 breast cancer. Low back pain; Pain in thoracic spine; With radiculopathy; Bilateral; Prior surgery; Surgery date: 1-6 months; Surgery type: Vertebroplasty and at 38 weeks after 1 round of chemo; Kyphoplasty; Kyphoplasty; Follow up post treatment, back pain, neck pain; Breast cancer -bone mets, known compression fractures; Breast cancer with bone mets and compression fractures; Breast cancer with bone mets and known compression fractures; Additional info: Followup post treatment TECHNIQUE: Imaging protocol: Computed tomography of the cervical spine without contrast. Radiation optimization: All CT scans at this facility use at least one of these dose optimization techniques: automated exposure control; mA and/or kV adjustment per patient size (includes targeted exams where dose is matched to clinical indication); or iterative reconstruction. Other contrast: Oral, OMNIPAQUE 350, 50; COMPARISON: 1. CR XR chest 1V portable [id number] 11/15/2024 1:09 PM 2. CR XR chest 1V portable [id number] 09/17/2024 6:33 PM RADIATION DOSE METRICS: Total DLP (mGy-cm): 139.17 FINDINGS: Bones: Generalized skeletal lytic metastases. No skull base metastases. Generalized cervical vertebral column lytic metastases involving the vertebral bodies, posterior elements, particularly of the facets. Numerous lytic rib metastases without pathologic fracture. T2 compression fracture deformity is partially included within the field of view (described in greater detail below). Spinal epidural space: No pathologic epidural mass, spinal canal hemorrhage or pathologic fluid. Mastoid air cells: Mastoid air cells and tympanic cavities appear aerated without pathologic fluid accumulation insofar as partially included within field of view. Teeth: Metallic dental amalgam fillings noted incidentally accounting for metallic beam hardening artifact, mentioned for completeness and otherwise not known to be of clinical significance. Lungs: Please see chest CT. Thyroid: The thyroid gland is normal. Soft tissues: Unremarkable. COMMENTS: Please see CT chest and , CT thoracic regarding additional findings. PROCEDURE INFORMATION: Exam: CT Thoracic Spine Without Contrast Exam date and time: 12/13/2024 12:26 PM Age: 29 years old Clinical indication: Prior oncological surgery - vertebroplasty October 31. Prior chemotherapy - September 30 breast cancer. Low back pain; Pain in thoracic spine; With radiculopathy; Bilateral; Prior surgery; Surgery date: 1-6 months; Surgery type: Vertebroplasty and at 38 weeks after 1 round of chemo; Kyphoplasty; Kyphoplasty; Follow up post treatment, back pain, neck pain; Breast cancer -bone mets, known compression fractures; Breast cancer with bone mets and compression fractures; Breast cancer with bone mets and known compression fractures; Additional info: Followup post treatment TECHNIQUE: Imaging protocol: Computed tomography of the thoracic spine without contrast. Radiation optimization: All CT scans at this facility use at least one of these dose optimization techniques: automated exposure control; mA and/or kV adjustment per patient size (includes targeted exams where dose is matched to clinical indication); or iterative reconstruction. Other contrast: Oral, OMNIPAQUE 350, 50; COMPARISON: 1. CT cervical spin wo con* [id number] 12/13/2024 12:14 PM 2. MR lumbar spine wo con* [id number] 09/17/2024 8:27 AM RADIATION DOSE METRICS: Total DLP (mGy-cm): 459.81 FINDINGS: Bones/joints: Generalized lytic metastases throughout the axial and appendicular skeleton. Multiple healed-healing pathologic rib fractures. No definite acute displaced fracture. Thoracic vertebral column multilevel compression fracture deformities most severe with greater than 50% loss of vertebral body height at the T2 vertebra, unless severe at T3, T4, T6, T8, T9, contributing to dorsal thoracic kyphosis. The T6 vertebral body in particular demonstrates discontinuity of the anterior vertebral body wall such that progressive pathologic compression fracture deformity is suspected. Thoracic multilevel vertebroplasty cement T10, T11, T12, L1, L2 associated with extensive generalized lytic skeletal metastasis and multifocal compression fracture deformities. Extensive lytic metastases involving the ribs without acutely displaced rib fracture deformities. Spinal epidural space: No pathologic epidural mass, spinal canal hemorrhage or pathologic fluid. Soft tissues: Unremarkable. Tracheobronchial tree: Lower airway, insofar as partially included within the field of view, reveals no internal filling defects, secretions or debris. Lungs: Please see chest CT. The visualized portions of the lungs appear well-aerated without focal pathologic pulmonary parenchymal process. COMMENTS: Please see CT chest, CT abdomen, and CT cervical regarding additional findings. PROCEDURE INFORMATION: Exam: CT Lumbar Spine Without Contrast Exam date and time: 12/13/2024 12:26 PM Age: 29 years old Clinical indication: Prior oncological surgery - vertebroplasty October 31. Prior chemotherapy - September 30 breast cancer. Low back pain; Pain in thoracic spine; With radiculopathy; Bilateral; Prior surgery; Surgery date: 1-6 months; Surgery type: Vertebroplasty and at 38 weeks after 1 round of chemo; Kyphoplasty; Kyphoplasty; Follow up post treatment, back pain, neck pain; Breast cancer -bone mets, known compression fractures; Breast cancer with bone mets and compression fractures; Breast cancer with bone mets and known compression fractures; Additional info: Followup post treatment TECHNIQUE: Imaging protocol: Computed tomography of the lumbar spine without contrast. Radiation optimization: All CT scans at this facility use at least one of these dose optimization techniques: automated exposure control; mA and/or kV adjustment per patient size (includes targeted exams where dose is matched to clinical indication); or iterative reconstruction. Other contrast: Oral, OMNIPAQUE 350, 50; COMPARISON: 1. MR lumbar spine wo con* [id number] 09/17/2024 8:[address] thoracic spin wo con* [id number] 12/13/2024 12:19 PM RADIATION DOSE METRICS: Total DLP (mGy-cm): 443.64 FINDINGS: Bones/joints: Generalized lytic metastases throughout the axial and appendicular skeleton. Vertebroplasty cement is noted centered within each of the lumbar vertebra, associated with chronic pathologic compression fracture deformities. Spinal epidural space: No pathologic epidural mass, acute spinal canal hemorrhage or pathologic fluid. Lungs: Please see chest CT. Soft tissues: Unremarkable. CT/CT cervical spin wo con* [id number] IMPRESSION: 1. No evidence of acute disease of the chest. 2. Bibasilar atelectasis. 3. Generalized lytic metastases throughout the axial and appendicular skeleton. IMPRESSION: 1. No acute intra-abdominal process identified. 2. Gallbladder sludge. 3. Moderate burden of colonic stool without distension. 4. Few distal colonic diverticuli without evidence of diverticulitis. 5. Distended and enhancing bilateral gonadal veins, probably , versus reflux. Please correlate for symptoms of pelvic congestion. 6. Appendix is not identified, however there are no specific manifestations of acute appendicitis. 7. Generalized lytic metastases throughout the axial and appendicular skeleton. IMPRESSION: 1. No acute cervical vertebral column fracture in the setting of extensive blastic metastases of the vertebral column and ribs. 2. No abnormal cervical canal mass, fluid, or acquired stenosis. 3. No pathologic cervical lymphadenopathy. IMPRESSION: 1. Generalized lytic metastases throughout the axial and appendicular skeleton. 2. Multilevel thoracic pathologic vertebral compression fracture deformities of greatest severity at the T2 level contributing to upper thoracic dorsal kyphosis. 3. The T6 vertebral body in particular demonstrates discontinuity of the anterior vertebral body wall such that this level is most concerning for possible progressive, acute on chronic, pathologic compression fracture deformity. Comparison with prior spine imaging may be useful for determination of progression of disease in this regard. 4. Thoracic multilevel vertebroplasty cement T10, T11, T12, L1, L2 associated with extensive generalized lytic skeletal metastasis and multifocal chronic compression fracture deformities. IMPRESSION: 1. Lumbar vertebral column demonstrates no highly suspicious manifestations of acute or acute on chronic pathologic compression fracture deformity. Comparison with prior spine imaging may be useful for determination of progression of disease in this regard. 2. Lumbar multilevel vertebroplasty cement L1 through L5 associated with extensive generalized lytic skeletal metastases and multifocal chronic compression fracture deformities. 3. Generalized lytic metastases throughout the axial and appendicular skeleton. COMMENTS: Please see CT chest, CT abdomen and pelvis and CT lumbar regarding additional findings.
[2024-12-13 10:18] LABS: Hematocrit 34.9 % (36-47); Hemoglobin 11.30 g/dL (11.27-16.99); Mean Corpuscular HGB Conc 32.4 g/dL (30-55); Mean Corpuscular Hemoglobin 30.5 pg (27-33); Mean Corpuscular Volume 94.1 fl (85-98); Platelet Count 221 10^3/cmm (157-399); Red Blood Count 3.71 10^6/uL (3.85-5.65); White Blood Count 12.39 10^3/uL (3.29-11.43)
[2024-12-13 10:20] VITALS: BP 136/89; PULSE 73; TEMP 36
[2024-12-13 10:35] LABS: Alanine Aminotransferase 47 U/L (0-33); Albumin Level 4.3 g/dL (3.5-5.2); Alkaline Phosphatase 153 U/L (35-105); Anion Gap 13.8 (5-19); Aspartate Amino Transferase 30 U/L (0-32); Blood Urea Nitrogen 12 mg/dL (6-20); Calcium 8.9 mg/dL (8.5-10.5); Carbon Dioxide 23 mmol/L (22-29); Chloride 107 mmol/L (98-107); Globulin 2.6 g/dL (1.3-4.6); Glucose 120 mg/dL (65-115); Iron 122 ug/dL (37-145); Osmolality Calculated 291 mOsm/kg (285-295); Potassium 3.8 mmol/L (3.5-5.1); Sodium 140 mmol/L (136-145); Total Protein 6.9 g/dL (6.6-8.7)
[2024-12-13 10:49] LABS: Slide Review Slide Review Perform
[2024-12-13 10:50] LABS: Absolute Segmented Neutrophil 10.4 10/cmm (1.6-7.1); Atypical Lymphs 0.0 % (0-5); Band Neutrophils Absolute 0.4 10^3/cmm (0.0-1.2); Polychromasia Trace; Total Cells Counted 100 (0-100)
[2024-12-13] MEDS: iohexol 350 mg/mL 500 mL Btl (per mL) PO (11:15)
--- NOTE | 2024-12-13 12:30 | CTR_ITS ---
PROCEDURE INFORMATION: Exam: CT Chest With Contrast; Diagnostic Exam date and time: 12/13/2024 12:26 PM Age: 29 years old Clinical indication: Prior oncological surgery - vertebroplasty October 31. Prior chemotherapy - September 30 breast cancer. Low back pain; Pain in thoracic spine; With radiculopathy; Bilateral; Prior surgery; Surgery date: 1-6 months; Surgery type: Vertebroplasty and at 38 weeks after 1 round of chemo; Kyphoplasty; Kyphoplasty; Follow up post treatment, back pain, neck pain; Breast cancer -bone mets, known compression fractures; Breast cancer with bone mets and compression fractures; Breast cancer with bone mets and known compression fractures; Additional info: Followup post treatment TECHNIQUE: Imaging protocol: Diagnostic computed tomography of the chest with contrast. Total images: 1930 Radiation optimization: All CT scans at this facility use at least one of these dose optimization techniques: automated exposure control; mA and/or kV adjustment per patient size (includes targeted exams where dose is matched to clinical indication); or iterative reconstruction. Contrast material: OMNIPAQUE 350; Contrast volume: 100 ml; Contrast route: INTRAVENOUS (IV); Other contrast: Oral, OMNIPAQUE 350, 50; COMPARISON: 1. CR XR chest 1V portable [id number] 11/15/2024 1:09 PM 2. CR XR chest 1V portable [id number] 09/17/2024 6:33 PM RADIATION DOSE METRICS: Total DLP (mGy-cm): 910.31 FINDINGS: Tubes, catheters and devices: PICC line terminates at the right atrium/SVC junction. Thyroid: The thyroid gland is normal. Trachea: Lower airway reveals no internal filling defects, secretions, or debris. Lungs: Bibasilar opacities most consistent with subsegmental atelectasis. Lungs are well-aerated without focal pathologic pulmonary parenchymal process. Pleural spaces: No significant pleural effusion. No pneumothorax. Heart: The heart is not enlarged. No pericardial fluid collection or pathologic thickening. Lymph nodes: No lymphadenopathy. Vasculature: Unremarkable. No aortic aneurysm. Bones/joints: Generalized lytic metastases throughout the axial and appendicular skeleton. Multiple healed rib fracture deformities without acute displaced unhealed rib fracture appreciated. Thoracic vertebral column multilevel compression fracture deformities most severe with greater than 50% loss of vertebral body height at the T2 vertebra, unless severe at T3, T4, T6, T8, T9, contributing to dorsal thoracic kyphosis. Thoracic multilevel vertebroplasty cement T10, T11, T12, L1, L2 associated with extensive generalized lytic skeletal metastasis and multifocal compression fracture deformities. Soft tissues: Soft tissues are normal as visualized, demonstrating no masses or induration. COMMENTS: Please see CT abdomen , and CT spine regarding additional findings. PROCEDURE INFORMATION: Exam: CT Abdomen And Pelvis With Contrast Exam date and time: 12/13/2024 12:26 PM Age: 29 years old Clinical indication: Prior oncological surgery - vertebroplasty October 31. Prior chemotherapy - September 30 breast cancer. Low back pain; Pain in thoracic spine; With radiculopathy; Bilateral; Prior surgery; Surgery date: 1-6 months; Surgery type: Vertebroplasty and at 38 weeks after 1 round of chemo; Kyphoplasty; Kyphoplasty; Follow up post treatment, back pain, neck pain; Breast cancer -bone mets, known compression fractures; Breast cancer with bone mets and compression fractures; Breast cancer with bone mets and known compression fractures; Additional info: Followup post treatment TECHNIQUE: Imaging protocol: Computed tomography of the abdomen and pelvis with contrast. Radiation optimization: All CT scans at this facility use at least one of these dose optimization techniques: automated exposure control; mA and/or kV adjustment per patient size (includes targeted exams where dose is matched to clinical indication); or iterative reconstruction. Contrast material: OMNIPAQUE 350; Contrast volume: 100 ml; Contrast route: INTRAVENOUS (IV); Other contrast: Oral, OMNIPAQUE 350, 50; COMPARISON: 1. CT lumbar spine wo con* [id number] 12/13/2024 12:[address] thoracic spin wo con* [id number] 12/13/2024 12:19 PM RADIATION DOSE METRICS: Total DLP (mGy-cm): 910.31 FINDINGS: Lungs: Please see chest CT. Diaphragm: Small hiatal hernia present. Liver: Generalized liver space-occupying masses measuring as large as 12 mm diameter compatible with metastases. Liver normal capsule contour. Gallbladder and biliary ducts: No intrahepatic biliary dilatation. Gallbladder demonstrates layering density consistent with noncalcified stones or sludge. Pancreas: Pancreas of normal thickness, contour, without pathologic pancreatic duct dilatation. Spleen: Spleen upper pole demonstrates a intermediate density 1.6 cm diameter mass or cyst which may represent a metastasis or splenic cyst. Spleen of normal-size and contour. Adrenal glands: Adrenal glands are normal. Kidneys and ureters: Kidneys are normal. No evidence of obstructing urinary tract calculus, hydroureteronephrosis or perinephric edema. Stomach and bowel: Moderate volume of stool throughout the course of the nondistended colon. No evidence of pathologic bowel distension or bowel wall thickening. Appendix: Appendix is not identified, however there are no specific manifestations of acute appendicitis. Intraperitoneal space: No significant peritoneal free fluid. No free peritoneal air. Vasculature: Distended and enhancing bilateral gonadal veins , probably , versus reflux. No major vessel hemodynamically significant stenosis, occlusion, or aneurysmal dilatation. Lymph nodes: No lymphadenopathy. Urinary bladder: No focal wall thickening of the urinary bladder. Reproductive: Uterus is normal in size and serosal contour. Bones/joints: Generalized skeletal metastases. Numerous healing rib fracture deformities characteristic of healing pathologic fractures. Vertebral column fracture deformities and prior thoracolumbar multilevel vertebroplasty. Soft tissues: Ventral abdominal wall midline umbilical-periumbilical fat-containing hernia without inflammatory manifestations. Ventral abdominal wall demonstrates evidence of prior healed surgical incision. Soft tissues are normal as visualized, demonstrating no masses or induration. COMMENTS: Please see CT chest and CT spine regarding additional findings. PROCEDURE INFORMATION: Exam: CT Cervical Spine Without Contrast Exam date and time: 12/13/2024 12:26 PM Age: 29 years old Clinical indication: Prior oncological surgery - vertebroplasty October 31. Prior chemotherapy - September 30 breast cancer. Low back pain; Pain in thoracic spine; With radiculopathy; Bilateral; Prior surgery; Surgery date: 1-6 months; Surgery type: Vertebroplasty and at 38 weeks after 1 round of chemo; Kyphoplasty; Kyphoplasty; Follow up post treatment, back pain, neck pain; Breast cancer -bone mets, known compression fractures; Breast cancer with bone mets and compression fractures; Breast cancer with bone mets and known compression fractures; Additional info: Followup post treatment TECHNIQUE: Imaging protocol: Computed tomography of the cervical spine without contrast. Radiation optimization: All CT scans at this facility use at least one of these dose optimization techniques: automated exposure control; mA and/or kV adjustment per patient size (includes targeted exams where dose is matched to clinical indication); or iterative reconstruction. Other contrast: Oral, OMNIPAQUE 350, 50; COMPARISON: 1. CR XR chest 1V portable [id number] 11/15/2024 1:09 PM 2. CR XR chest 1V portable [id number] 09/17/2024 6:33 PM RADIATION DOSE METRICS: Total DLP (mGy-cm): 139.17 FINDINGS: Bones: Generalized skeletal lytic metastases. No skull base metastases. Generalized cervical vertebral column lytic metastases involving the vertebral bodies, posterior elements, particularly of the facets. Numerous lytic rib metastases without pathologic fracture. T2 compression fracture deformity is partially included within the field of view (described in greater detail below). Spinal epidural space: No pathologic epidural mass, spinal canal hemorrhage or pathologic fluid. Mastoid air cells: Mastoid air cells and tympanic cavities appear aerated without pathologic fluid accumulation insofar as partially included within field of view. Teeth: Metallic dental amalgam fillings noted incidentally accounting for metallic beam hardening artifact, mentioned for completeness and otherwise not known to be of clinical significance. Lungs: Please see chest CT. Thyroid: The thyroid gland is normal. Soft tissues: Unremarkable. COMMENTS: Please see CT chest and , CT thoracic regarding additional findings. PROCEDURE INFORMATION: Exam: CT Thoracic Spine Without Contrast Exam date and time: 12/13/2024 12:26 PM Age: 29 years old Clinical indication: Prior oncological surgery - vertebroplasty October 31. Prior chemotherapy - September 30 breast cancer. Low back pain; Pain in thoracic spine; With radiculopathy; Bilateral; Prior surgery; Surgery date: 1-6 months; Surgery type: Vertebroplasty and at 38 weeks after 1 round of chemo; Kyphoplasty; Kyphoplasty; Follow up post treatment, back pain, neck pain; Breast cancer -bone mets, known compression fractures; Breast cancer with bone mets and compression fractures; Breast cancer with bone mets and known compression fractures; Additional info: Followup post treatment TECHNIQUE: Imaging protocol: Computed tomography of the thoracic spine without contrast. Radiation optimization: All CT scans at this facility use at least one of these dose optimization techniques: automated exposure control; mA and/or kV adjustment per patient size (includes targeted exams where dose is matched to clinical indication); or iterative reconstruction. Other contrast: Oral, OMNIPAQUE 350, 50; COMPARISON: 1. CT cervical spin wo con* [id number] 12/13/2024 12:14 PM 2. MR lumbar spine wo con* [id number] 09/17/2024 8:27 AM RADIATION DOSE METRICS: Total DLP (mGy-cm): 459.81 FINDINGS: Bones/joints: Generalized lytic metastases throughout the axial and appendicular skeleton. Multiple healed-healing pathologic rib fractures. No definite acute displaced fracture. Thoracic vertebral column multilevel compression fracture deformities most severe with greater than 50% loss of vertebral body height at the T2 vertebra, unless severe at T3, T4, T6, T8, T9, contributing to dorsal thoracic kyphosis. The T6 vertebral body in particular demonstrates discontinuity of the anterior vertebral body wall such that progressive pathologic compression fracture deformity is suspected. Thoracic multilevel vertebroplasty cement T10, T11, T12, L1, L2 associated with extensive generalized lytic skeletal metastasis and multifocal compression fracture deformities. Extensive lytic metastases involving the ribs without acutely displaced rib fracture deformities. Spinal epidural space: No pathologic epidural mass, spinal canal hemorrhage or pathologic fluid. Soft tissues: Unremarkable. Tracheobronchial tree: Lower airway, insofar as partially included within the field of view, reveals no internal filling defects, secretions or debris. Lungs: Please see chest CT. The visualized portions of the lungs appear well-aerated without focal pathologic pulmonary parenchymal process. COMMENTS: Please see CT chest, CT abdomen, and CT cervical regarding additional findings. PROCEDURE INFORMATION: Exam: CT Lumbar Spine Without Contrast Exam date and time: 12/13/2024 12:26 PM Age: 29 years old Clinical indication: Prior oncological surgery - vertebroplasty October 31. Prior chemotherapy - September 30 breast cancer. Low back pain; Pain in thoracic spine; With radiculopathy; Bilateral; Prior surgery; Surgery date: 1-6 months; Surgery type: Vertebroplasty and at 38 weeks after 1 round of chemo; Kyphoplasty; Kyphoplasty; Follow up post treatment, back pain, neck pain; Breast cancer -bone mets, known compression fractures; Breast cancer with bone mets and compression fractures; Breast cancer with bone mets and known compression fractures; Additional info: Followup post treatment TECHNIQUE: Imaging protocol: Computed tomography of the lumbar spine without contrast. Radiation optimization: All CT scans at this facility use at least one of these dose optimization techniques: automated exposure control; mA and/or kV adjustment per patient size (includes targeted exams where dose is matched to clinical indication); or iterative reconstruction. Other contrast: Oral, OMNIPAQUE 350, 50; COMPARISON: 1. MR lumbar spine wo con* [id number] 09/17/2024 8:[address] thoracic spin wo con* [id number] 12/13/2024 12:19 PM RADIATION DOSE METRICS: Total DLP (mGy-cm): 443.64 FINDINGS: Bones/joints: Generalized lytic metastases throughout the axial and appendicular skeleton. Vertebroplasty cement is noted centered within each of the lumbar vertebra, associated with chronic pathologic compression fracture deformities. Spinal epidural space: No pathologic epidural mass, acute spinal canal hemorrhage or pathologic fluid. Lungs: Please see chest CT. Soft tissues: Unremarkable. CT/CT chest abdpel w/*[id number] IMPRESSION: 1. No evidence of acute disease of the chest. 2. Bibasilar atelectasis. 3. Generalized lytic metastases throughout the axial and appendicular skeleton. IMPRESSION: 1. No acute intra-abdominal process identified. 2. Gallbladder sludge. 3. Moderate burden of colonic stool without distension. 4. Few distal colonic diverticuli without evidence of diverticulitis. 5. Distended and enhancing bilateral gonadal veins, probably , versus reflux. Please correlate for symptoms of pelvic congestion. 6. Appendix is not identified, however there are no specific manifestations of acute appendicitis. 7. Generalized lytic metastases throughout the axial and appendicular skeleton. IMPRESSION: 1. No acute cervical vertebral column fracture in the setting of extensive blastic metastases of the vertebral column and ribs. 2. No abnormal cervical canal mass, fluid, or acquired stenosis. 3. No pathologic cervical lymphadenopathy. IMPRESSION: 1. Generalized lytic metastases throughout the axial and appendicular skeleton. 2. Multilevel thoracic pathologic vertebral compression fracture deformities of greatest severity at the T2 level contributing to upper thoracic dorsal kyphosis. 3. The T6 vertebral body in particular demonstrates discontinuity of the anterior vertebral body wall such that this level is most concerning for possible progressive, acute on chronic, pathologic compression fracture deformity. Comparison with prior spine imaging may be useful for determination of progression of disease in this regard. 4. Thoracic multilevel vertebroplasty cement T10, T11, T12, L1, L2 associated with extensive generalized lytic skeletal metastasis and multifocal chronic compression fracture deformities. IMPRESSION: 1. Lumbar vertebral column demonstrates no highly suspicious manifestations of acute or acute on chronic pathologic compression fracture deformity. Comparison with prior spine imaging may be useful for determination of progression of disease in this regard. 2. Lumbar multilevel vertebroplasty cement L1 through L5 associated with extensive generalized lytic skeletal metastases and multifocal chronic compression fracture deformities. 3. Generalized lytic metastases throughout the axial and appendicular skeleton. COMMENTS: Please see CT chest, CT abdomen and pelvis and CT lumbar regarding additional findings.
[2024-12-13] MEDS: iohexol 350 mg/mL 500 mL Btl (per mL) IV (12:37)
[2024-12-20 10:29] LABS: Hematocrit 32.0 % (36-47); Hemoglobin 10.40 g/dL (11.27-16.99); Mean Corpuscular HGB Conc 32.5 g/dL (30-55); Mean Corpuscular Hemoglobin 31.0 pg (27-33); Mean Corpuscular Volume 95.5 fl (85-98); Nucleated Red Blood Cells % 0.7 %; Platelet Count 194 10^3/cmm (157-399); Red Blood Count 3.35 10^6/uL (3.85-5.65); White Blood Count 6.73 10^3/uL (3.29-11.43)
[2024-12-20 10:57] LABS: Alanine Aminotransferase 80 U/L (0-33); Albumin Level 4.1 g/dL (3.5-5.2); Alkaline Phosphatase 151 U/L (35-105); Anion Gap 16.6 (5-19); Aspartate Amino Transferase 43 U/L (0-32); Blood Urea Nitrogen 11 mg/dL (6-20); Calcium 8.5 mg/dL (8.5-10.5); Carbon Dioxide 21 mmol/L (22-29); Chloride 107 mmol/L (98-107); Globulin 2.4 g/dL (1.3-4.6); Glucose 114 mg/dL (65-115); Osmolality Calculated 292 mOsm/kg (285-295); Potassium 3.6 mmol/L (3.5-5.1); Sodium 141 mmol/L (136-145); Total Protein 6.5 g/dL (6.6-8.7)
[2024-12-20 11:20] LABS: CA 15-3 316.2 U/mL (0-25)
[2024-12-20 13:51] VITALS: BP 122/86; PULSE 96
[2024-12-27 08:54] LABS: Hematocrit 29.5 % (36-47); Hemoglobin 9.70 g/dL (11.27-16.99); Mean Corpuscular HGB Conc 32.9 g/dL (30-55); Mean Corpuscular Hemoglobin 30.9 pg (27-33); Mean Corpuscular Volume 93.9 fl (85-98); Nucleated Red Blood Cells % 0.3 %; Platelet Count 210 10^3/cmm (157-399); Red Blood Count 3.14 10^6/uL (3.85-5.65); White Blood Count 6.26 10^3/uL (3.29-11.43)
[2024-12-27 09:50] LABS: Alanine Aminotransferase 75 U/L (0-33); Albumin Level 3.9 g/dL (3.5-5.2); Alkaline Phosphatase 180 U/L (35-105); Anion Gap 15.7 (5-19); Aspartate Amino Transferase 39 U/L (0-32); Blood Urea Nitrogen 12 mg/dL (6-20); Calcium 8.7 mg/dL (8.5-10.5); Carbon Dioxide 23 mmol/L (22-29); Chloride 106 mmol/L (98-107); Creatinine Clr Calc Pharmacy 152.2209; Globulin 2.4 g/dL (1.3-4.6); Glucose 80 mg/dL (65-115); Osmolality Calculated 291 mOsm/kg (285-295); Potassium 3.7 mmol/L (3.5-5.1); Sodium 141 mmol/L (136-145); Thyroid Stimulating Hormone 3.40 uIU/mL (0.27-4.20); Total Protein 6.3 g/dL (6.6-8.7)
[2024-12-27] MEDS: denosumab 120 mg SDV (Infusion Clinic Only) SUBCUT (11:18)
[2024-12-27] MEDS: lidocaine 1% INJ 20 mL XX (11:19)
[2025-01-02 09:53] LABS: Hematocrit 30.4 % (36-47); Hemoglobin 10.10 g/dL (11.27-16.99); Mean Corpuscular HGB Conc 33.2 g/dL (30-55); Mean Corpuscular Hemoglobin 32.4 pg (27-33); Mean Corpuscular Volume 97.4 fl (85-98); Nucleated Red Blood Cells % 0 %; Platelet Count 249 10^3/cmm (157-399); Red Blood Count 3.12 10^6/uL (3.85-5.65); White Blood Count 6.09 10^3/uL (3.29-11.43)
[2025-01-02 11:10] LABS: Alanine Aminotransferase 75 U/L (0-33); Albumin Level 4.1 g/dL (3.5-5.2); Alkaline Phosphatase 184 U/L (35-105); Anion Gap 17.6 (5-19); Aspartate Amino Transferase 41 U/L (0-32); Blood Urea Nitrogen 10 mg/dL (6-20); Calcium 8.3 mg/dL (8.5-10.5); Carbon Dioxide 21 mmol/L (22-29); Chloride 109 mmol/L (98-107); Creatinine Clr Calc Pharmacy 126.8507; Globulin 2.4 g/dL (1.3-4.6); Glucose 105 mg/dL (65-115); Osmolality Calculated 297 mOsm/kg (285-295); Potassium 3.6 mmol/L (3.5-5.1); Sodium 144 mmol/L (136-145); Total Protein 6.5 g/dL (6.6-8.7)
== END 2025-01-03 23:59 | disposition home or self-care (01) ==
PROVIDERS: Nurse Practitioner; PCP Family Medicine; Visit Provider Internal Medicine Medical Oncology
DX: Z53.9 Procedure and treatment not carried out, unspecified reason; C50.912 Malignant neoplasm of unspecified site of left female breast; C78.7 Secondary malignant neoplasm of liver and intrahepatic bile duct; C79.51 Secondary malignant neoplasm of bone
CPT/HCPCS: 36430; 36592; 71260; 72125; 72128; 72131; 74177; 80053; 82306; 83540; 83550; 83615; 83735; 84443; 85007; 85025; 86300; 86850; 86900; 86920; 96360; 96361; 96365; 96367; 96372; 96374; 96375; 96402; J0897; J1100; J1938; J2405; J3490; J7030; J9202; J9999; P9016

== ENCOUNTER 2025-01-24 09:45 | Oncology outpatient (recurring) (ONCR) | payer OTHER, BC, MEDICAID, SELFPAY ==
[2025-01-06 10:18] LABS: Hematocrit 29.1 % (36-47); Hemoglobin 9.50 g/dL (11.27-16.99); Mean Corpuscular HGB Conc 32.6 g/dL (30-55); Mean Corpuscular Hemoglobin 31.5 pg (27-33); Mean Corpuscular Volume 96.4 fl (85-98); Nucleated Red Blood Cells % 0 %; Platelet Count 197 10^3/cmm (157-399); Red Blood Count 3.02 10^6/uL (3.85-5.65); White Blood Count 5.74 10^3/uL (3.29-11.43)
[2025-01-06 10:35] LABS: Albumin Level 4.0 g/dL (3.5-5.2); Alkaline Phosphatase 193 U/L (35-105); Anion Gap 17.1 (5-19); Aspartate Amino Transferase 27 U/L (0-32); Blood Urea Nitrogen 13 mg/dL (6-20); Calcium 8.7 mg/dL (8.5-10.5); Carbon Dioxide 23 mmol/L (22-29); Chloride 105 mmol/L (98-107); Globulin 2.4 g/dL (1.3-4.6); Glucose 111 mg/dL (65-115); Osmolality Calculated 293 mOsm/kg (285-295); Potassium 4.1 mmol/L (3.5-5.1); Sodium 141 mmol/L (136-145); Total Protein 6.4 g/dL (6.6-8.7)
[2025-01-06 10:45] LABS: Alanine Aminotransferase 50 U/L (0-33)
--- NOTE | 2025-01-23 16:00 | MR_ITS ---
WS: [id number] MRI THORACIC SPINE with and without contrast HISTORY: Metastatic to bone COMPARISON: CT 12/13/2024, TECHNIQUE: Multiplanar sequences are performed in sagittal and axial planes. Sagittal and axial T1 fat sat sequences post-MultiHance 15 cc IV. Numerous compression fractures and vertebroplasties throughout the thoracic spine. There is osseous metastatic disease in the thoracic spine involving all of the vertebral bodies and some of the posterior elements. Severe compression deformity at T2 with retropulsion of the vertebral body contacting the thoracic cord. Additional biconcave fractures are severe at T3, T4, T6,. Mild fractures deformities at T9, T7 and T5. Minimal anterior wedging of T1. Anterior wedging of T12 with slight retropulsion of the vertebral body. This vertebral body is undergone a prior kyphoplasty. Vertebroplasties extend from T10-L5. No cord compression or signal abnormality within the thoracic cord. No enhancing nodules along the thoracic dura or in the nerve roots visualized. There is evidence for extensive bony metastasis in the ribs. Pulmonary nodule at the lung bases. Patient has metastatic nodules. Spleen nodule is not as well visualized on this exam as previously described. MR/MR thoracic spine wo/w [id number] IMPRESSION: 1. Extensive bony metastasis throughout all the thoracic vertebral bodies. Pat hological fractures of various degrees as described above. 2. Vertebroplasties extend from T10-L5. 3. Severe compression deformity at T2 with retropulsion of the vertebral body contacting the ventral thoracic cord. 4. No enhancing masses noted within the thoracic cord or the nerve roots. 5. Extensive rib metastasis. Pulmonary nodules at the lung bases and metastati c nodules identified within the liver.
--- NOTE | 2025-01-23 16:45 | MR_ITS ---
WS: [id number] MRI CERVICAL SPINE WITH AND WITHOUT CONTRAST. COMPARISON: 10/03/2024 Multiplanar, multisequence imaging is performed with and without contrast. Sagittal and axial T1 fat sat sequences post-MultiHance 15 cc IV. Comparison: 10/03/2024 Significant progression of metastatic disease since 10/03/2024 within the cervical and thoracic spines. Increased T2 signal present within all 7 cervical vertebrae and involvement of the facet joints and spinous processes also at several levels. No compression fractures in the cervical spine. Posterior alignment is normal. No signal abnormality within the cord or abnormal enhancement. There is enhancement within the vertebral bodies in the posterior elements in the areas of T2 signal abnormalities. There is no cord compression. No abnormality noted at the skull base. Severe compression deformities are noted involving T2, T3 and T4 which will be described on the following MRI thoracic spine. Incidental note is made is of of a nondisplaced fracture involving the T1 spinous process. May be a pathological fracture. Metastatic involvement of several ribs in the upper thorax, clavicles and probably also the scapula. MR/MR cervical spine wo/w [id number] IMPRESSION: 1. Significant progression of metastatic bone disease throughout the cervical spine since 10/03/2024. 2. Metastatic involvement of all vertebral bodies in the cervical spine with a dditional involvement of the facet joints and spinous processes at several leve ls. 3. No cord compression. 4. Additional metastatic involvement of the ribs in the upper thorax, clavicle s and probably the scapula.
[2025-01-23] MEDS: gadobenate dimeglumine 20 mL vial 15 ML IV (16:49)
[2025-01-24 10:08] LABS: Hematocrit 30.1 % (36-47); Hemoglobin 10.40 g/dL (11.27-16.99); Mean Corpuscular HGB Conc 34.6 g/dL (30-55); Mean Corpuscular Hemoglobin 34.0 pg (27-33); Mean Corpuscular Volume 98.4 fl (85-98); Nucleated Red Blood Cells % 0 %; Platelet Count 126 10^3/cmm (157-399); Red Blood Count 3.06 10^6/uL (3.85-5.65); White Blood Count 2.08 10^3/uL (3.29-11.43)
[2025-01-24 10:41] LABS: Slide Review Slide Review Perform
[2025-01-24 10:42] LABS: Alanine Aminotransferase 46 U/L (0-33); Albumin Level 4.3 g/dL (3.5-5.2); Alkaline Phosphatase 141 U/L (35-105); Anion Gap 15.4 (5-19); Aspartate Amino Transferase 38 U/L (0-32); Blood Urea Nitrogen 10 mg/dL (6-20); CA 15-3 177.5 U/mL (0-25); Calcium 8.5 mg/dL (8.5-10.5); Carbon Dioxide 24 mmol/L (22-29); Chloride 108 mmol/L (98-107); Creatinine Clr Calc Pharmacy 127.1175; Globulin 2.5 g/dL (1.3-4.6); Glucose 81 mg/dL (65-115); Osmolality Calculated 296 mOsm/kg (285-295); Potassium 3.4 mmol/L (3.5-5.1); Sodium 144 mmol/L (136-145); Total Protein 6.8 g/dL (6.6-8.7)
[2025-01-24] MEDS: denosumab 120 mg SDV (Infusion Clinic Only) SUBCUT (11:13)
[2025-01-24] MEDS: lidocaine 1% INJ 20 mL INTRADERMA (11:14)
== END 2025-02-03 23:59 | disposition home or self-care (01) ==
LOC: ONCMED 09:51 → RAD 09:51
PROVIDERS: Nurse Practitioner Family; PCP Family Medicine; Visit Provider Internal Medicine Medical Oncology
DX: Z51.11 Encounter for antineoplastic chemotherapy (principal); C50.912 Malignant neoplasm of unspecified site of left female breast; Z79.899 Other long term (current) drug therapy; Z53.9 Procedure and treatment not carried out, unspecified reason
CPT/HCPCS: 36415; 36592; 72156; 72157; 80053; 85025; 86300; 96372; 96402; A9577; J0897; J9202; J9999

== ENCOUNTER 2025-02-28 12:15 | Oncology outpatient (recurring) (ONCR) | payer BC, MEDICAID, OTHER, SELFPAY ==
[2025-02-07 11:02] LABS: Hematocrit 32.3 % (36-47); Hemoglobin 10.90 g/dL (11.27-16.99); Mean Corpuscular HGB Conc 33.7 g/dL (30-55); Mean Corpuscular Hemoglobin 33.3 pg (27-33); Mean Corpuscular Volume 98.8 fl (85-98); Nucleated Red Blood Cells % 0 %; Platelet Count 274 10^3/cmm (157-399); Red Blood Count 3.27 10^6/uL (3.85-5.65); White Blood Count 3.50 10^3/uL (3.29-11.43)
[2025-02-07 11:37] LABS: Alanine Aminotransferase 19 U/L (0-33); Albumin Level 4.3 g/dL (3.5-5.2); Alkaline Phosphatase 108 U/L (35-105); Anion Gap 14.7 (5-19); Aspartate Amino Transferase 17 U/L (0-32); Blood Urea Nitrogen 10 mg/dL (6-20); CA 15-3 184.6 U/mL (0-25); Calcium 8.4 mg/dL (8.5-10.5); Carbon Dioxide 24 mmol/L (22-29); Chloride 106 mmol/L (98-107); Globulin 2.4 g/dL (1.3-4.6); Glucose 105 mg/dL (65-115); Osmolality Calculated 291 mOsm/kg (285-295); Potassium 3.7 mmol/L (3.5-5.1); Sodium 141 mmol/L (136-145); Total Protein 6.7 g/dL (6.6-8.7)
[2025-02-07 16:44] LABS: Thyroid Stimulating Hormone 0.77 uIU/mL (0.27-4.20)
[2025-02-21 09:24] LABS: Hematocrit 32.1 % (36-47); Hemoglobin 11.20 g/dL (11.27-16.99); Mean Corpuscular HGB Conc 34.9 g/dL (30-55); Mean Corpuscular Hemoglobin 34.4 pg (27-33); Mean Corpuscular Volume 98.5 fl (85-98); Nucleated Red Blood Cells % 0 %; Platelet Count 171 10^3/cmm (157-399); Red Blood Count 3.26 10^6/uL (3.85-5.65); White Blood Count 2.35 10^3/uL (3.29-11.43)
[2025-02-21 09:41] LABS: Alanine Aminotransferase 13 U/L (0-33); Albumin Level 4.4 g/dL (3.5-5.2); Alkaline Phosphatase 91 U/L (35-105); Anion Gap 15.6 (5-19); Aspartate Amino Transferase 13 U/L (0-32); Blood Urea Nitrogen 11 mg/dL (6-20); Calcium 8.9 mg/dL (8.5-10.5); Carbon Dioxide 24 mmol/L (22-29); Chloride 107 mmol/L (98-107); Globulin 2.3 g/dL (1.3-4.6); Glucose 105 mg/dL (65-115); Osmolality Calculated 296 mOsm/kg (285-295); Potassium 3.6 mmol/L (3.5-5.1); Sodium 143 mmol/L (136-145); Total Protein 6.7 g/dL (6.6-8.7)
[2025-02-21] MEDS: lidocaine 1% INJ 20 mL INTRADERMA (11:23)
[2025-02-21] MEDS: denosumab 120 mg SDV (Infusion Clinic Only) SUBCUT (11:28)
--- NOTE | 2025-02-28 09:00 | CTR_ITS ---
PROCEDURE INFORMATION: Exam: CT Head Without And With Contrast Exam date and time: 02/28/2025 12:34 PM Age: 29 years old Clinical indication: Condition or disease; Follow up breast cancer with mets to spine and liver, no symptoms in brain. Breast mets to liver and spine TECHNIQUE: Imaging protocol: Computed tomography of the head without and with contrast. Radiation optimization: All CT scans at this facility use at least one of these dose optimization techniques: automated exposure control; mA and/or kV adjustment per patient size (includes targeted exams where dose is matched to clinical indication); or iterative reconstruction. Contrast material: OMNI 350; Contrast volume: 100 ml; Contrast route: INTRAVENOUS (IV); COMPARISON: MR cervical spine wo/w [id number] 01/23/2025 4:04 PM RADIATION DOSE METRICS: Total DLP (mGy-cm): 2090.88 FINDINGS: Brain: Normal. No hemorrhage. Unremarkable white matter. No mass effect. Cerebral ventricles: No ventriculomegaly. Paranasal sinuses: Visualized sinuses are unremarkable. No fluid levels. Mastoid air cells: Visualized mastoid air cells are well aerated. Bones: Unremarkable. No acute fracture. Soft tissues: Unremarkable. CT/CT head wo/w con [id number] IMPRESSION: No acute intracranial abnormality.
[2025-02-28 12:28] LABS: Hematocrit 34.3 % (36-47); Hemoglobin 12.00 g/dL (11.27-16.99); Mean Corpuscular HGB Conc 35.0 g/dL (30-55); Mean Corpuscular Hemoglobin 34.2 pg (27-33); Mean Corpuscular Volume 97.7 fl (85-98); Nucleated Red Blood Cells % 0 %; Platelet Count 218 10^3/cmm (157-399); Red Blood Count 3.51 10^6/uL (3.85-5.65); White Blood Count 2.90 10^3/uL (3.29-11.43)
[2025-02-28] MEDS: iohexol 350 mg/mL 500 mL Btl (per mL) IV (12:40)
[2025-02-28 12:48] LABS: Slide Review Slide Review Perform
[2025-02-28 13:11] LABS: Alanine Aminotransferase 29 U/L (0-33); Albumin Level 4.5 g/dL (3.5-5.2); Alkaline Phosphatase 102 U/L (35-105); Aspartate Amino Transferase 27 U/L (0-32); Blood Urea Nitrogen 13 mg/dL (6-20); CA 15-3 171.0 U/mL (0-25); Calcium 9.3 mg/dL (8.5-10.5); Carbon Dioxide 23 mmol/L (22-29); Chloride 104 mmol/L (98-107); Globulin 2.7 g/dL (1.3-4.6); Glucose 86 mg/dL (65-115); Osmolality Calculated 293 mOsm/kg (285-295); Sodium 142 mmol/L (136-145); Thyroid Stimulating Hormone 1.43 uIU/mL (0.27-4.20); Total Protein 7.2 g/dL (6.6-8.7)
[2025-02-28 13:14] LABS: Anion Gap 18.6 (5-19); Potassium 3.6 mmol/L (3.5-5.1)
== END 2025-03-05 23:59 | disposition home or self-care (01) ==
LOC: ONCMED 13:10 → RAD 03-01 00:01 → ONCMED 03-01 11:04
PROVIDERS: Nurse Practitioner; PCP Family Medicine; Visit Provider Internal Medicine Medical Oncology
DX: C79.51 Secondary malignant neoplasm of bone; C50.912 Malignant neoplasm of unspecified site of left female breast; C78.7 Secondary malignant neoplasm of liver and intrahepatic bile duct; Z53.9 Procedure and treatment not carried out, unspecified reason
CPT/HCPCS: 36415; 70470; 80053; 82306; 84443; 85025; 86300; 96372; 96402; J0897; J9202; J9999

== ENCOUNTER 2025-03-21 09:15 | Oncology outpatient (recurring) (ONCR) | payer BC, MEDICAID, OTHER, SELFPAY ==
[2025-03-07 12:22] LABS: Hematocrit 34.3 % (36-47); Hemoglobin 12.00 g/dL (11.27-16.99); Mean Corpuscular HGB Conc 35.0 g/dL (30-55); Mean Corpuscular Hemoglobin 33.2 pg (27-33); Mean Corpuscular Volume 95.0 fl (85-98); Nucleated Red Blood Cells % 0 %; Platelet Count 252 10^3/cmm (157-399); Red Blood Count 3.61 10^6/uL (3.85-5.65); White Blood Count 3.70 10^3/uL (3.29-11.43)
[2025-03-07 12:45] LABS: Alanine Aminotransferase 33 U/L (0-33); Albumin Level 4.6 g/dL (3.5-5.2); Alkaline Phosphatase 103 U/L (35-105); Anion Gap 14.8 (5-19); Aspartate Amino Transferase 28 U/L (0-32); Blood Urea Nitrogen 10 mg/dL (6-20); Calcium 9.4 mg/dL (8.5-10.5); Carbon Dioxide 28 mmol/L (22-29); Chloride 105 mmol/L (98-107); Globulin 2.4 g/dL (1.3-4.6); Glucose 87 mg/dL (65-115); Osmolality Calculated 296 mOsm/kg (285-295); Potassium 3.8 mmol/L (3.5-5.1); Sodium 144 mmol/L (136-145); Total Protein 7.0 g/dL (6.6-8.7)
--- NOTE | 2025-03-17 14:30 | PETR_ITS ---
PROCEDURE INFORMATION: Exam: PET/CT Skull Base to Mid-thigh Exam date and time: 03/17/2025 3:17 PM Age: 29 years old Clinical indication: Condition or disease; Primary cancer: Metastatic breast cancer to bone; Prior surgery; Surgery date: 6+ months; Surgery type: , tubal, kyphoplasty LABS AND CLINICAL REPORTS: Glucose: 140 mg/dl Treatment strategy for malignancy (PET staging): Restaging (PS) TECHNIQUE: Imaging protocol: Following at least four-hour fasting and following the injection of radiopharmaceutical, low dose CT images were obtained. Then, PET images were obtained. Attenuation corrected images were constructed using the CT scan. Fused images of PET and CT were reviewed. The standardized uptake values (SUV) reported below are maximum values within a region of interest, expressed in gm/ml. Exam includes orbital meatal line to mid-thigh. SUV normalization method: BodyWeight Radiopharmaceutical: 10.65 mCi F-18 FDG (Fluorodeoxyglucose), IV. Time of imaging post radiopharmaceutical administration: 51 minutes Injection site: LEFT AC COMPARISON: CT chest abdpel w/*[id number] 12/13/2024 12:26 PM FINDINGS: Brain: Visualized brain has normal physiologic uptake. Pharynx: No abnormal uptake. Larynx: Symmetric FDG uptake without underlying CT abnormality is likely benign activation. Lungs, pleura and trachea: No abnormal uptake. Heart: Normal physiologic uptake. Mediastinal space: No abnormal uptake. Liver: No abnormal uptake. Gallbladder and biliary ducts: No abnormal uptake. Cholelithiasis. Pancreas: No abnormal uptake. Spleen: No abnormal uptake. Adrenal glands: No abnormal uptake. Kidneys and ureters: Normal physiologic uptake. Stomach and bowel: No abnormal uptake. Vasculature: No abnormal uptake. Lymph nodes: No abnormal uptake. No lymphadenopathy in the head, neck, chest, abdomen, pelvis, and extremities. Skeleton: Heterogeneous lytic appearance throughout the bones with low-level uptake at the bilateral pelvic bones with index left iliac lytic lesion showing SUV max 3.3 on axial image 169, left anterior acetabulum lytic lesion showing SUV max 3.1 on axial image 197, and right parasymphyseal pubic lytic lesion showing SUV max 3.2 on axial image 200. Multiple non FDG avid vertebral body compression deformities throughout the thoracic and lumbar spine with augmentation of the T10-L5 vertebral bodies. Soft tissues: No abnormal uptake in the visualized head, neck, chest, abdomen, pelvis, and extremities. Small fat containing umbilical hernia. METRICS: Mediastinal blood pool: SUV mean 1.8 Liver uptake: SUV mean 2.3, SUV max 2.8 PET/PET skull to thigh INIT [id number] IMPRESSION: 1. Widespread heterogeneous lytic lesions throughout the bones are largely non FDG avid although there is associated low-level uptake at bilateral pelvic bone lesions suggesting mildly active disease. 2. Additional chronic and incidental findings as above.
[2025-03-21 09:47] LABS: Hematocrit 30.7 % (36-47); Hemoglobin 10.70 g/dL (11.27-16.99); Mean Corpuscular HGB Conc 34.9 g/dL (30-55); Mean Corpuscular Hemoglobin 33.1 pg (27-33); Mean Corpuscular Volume 95.0 fl (85-98); Nucleated Red Blood Cells % 0 %; Platelet Count 131 10^3/cmm (157-399); Red Blood Count 3.23 10^6/uL (3.85-5.65); White Blood Count 1.73 10^3/uL (3.29-11.43)
[2025-03-21 10:15] LABS: Alanine Aminotransferase 27 U/L (0-33); Albumin Level 4.2 g/dL (3.5-5.2); Alkaline Phosphatase 107 U/L (35-105); Anion Gap 15.5 (5-19); Aspartate Amino Transferase 23 U/L (0-32); Blood Urea Nitrogen 12 mg/dL (6-20); CA 15-3 120.2 U/mL (0-25); Calcium 8.5 mg/dL (8.5-10.5); Carbon Dioxide 23 mmol/L (22-29); Chloride 106 mmol/L (98-107); Globulin 2.2 g/dL (1.3-4.6); Glucose 90 mg/dL (65-115); Osmolality Calculated 291 mOsm/kg (285-295); Potassium 3.5 mmol/L (3.5-5.1); Sodium 141 mmol/L (136-145); Total Protein 6.4 g/dL (6.6-8.7)
[2025-03-21 10:21] LABS: Slide Review Slide Review Perform
[2025-03-21] MEDS: denosumab 120 mg SDV (Infusion Clinic Only) SUBCUT (11:45)
[2025-03-21] MEDS: lidocaine 1% INJ 20 mL INTRADERMA (11:50)
[2025-03-21 12:23] LABS: Glucose Urine UA Negative (Normal); Nitrate Urine Positive (Negative); Specific Gravity, Urine 1.009 (1.005-1.030)
[2025-03-21 12:26] LABS: Add Urine Microscopic? YES
== END 2025-04-05 23:59 | disposition home or self-care (01) ==
PROVIDERS: Internal Medicine Medical Oncology; PCP Family Medicine; Visit Provider Nurse Practitioner
DX: Z51.11 Encounter for antineoplastic chemotherapy (principal); C50.912 Malignant neoplasm of unspecified site of left female breast; C79.51 Secondary malignant neoplasm of bone; Z79.899 Other long term (current) drug therapy; Z53.9 Procedure and treatment not carried out, unspecified reason
CPT/HCPCS: 36415; 78815; 80053; 81001; 85025; 86300; 87077; 87086; 87186; 96360; 96372; 96402; A9552; J0897; J7030; J9202; J9999